=== PATIENT | male | born 1940 | race Caucasian/White ===

== ENCOUNTER → 2018-04-19 12:28 | Outpatient (CLI) | payer MEDICARE, SELFPAY ==
[2016-11-23 08:13] VITALS: BMI 24.7
--- NOTE | 2018-04-19 12:29 | CDU_ITS ---
Version 2 Reason For Study: CVA Rt. Velocities/BP Lt. Velocities/BP Prox CCA 32.2/5.5 cm/sec. Prox CCA 106/20.4 cm/sec. Mid CCA 33.4/5.11 cm/sec. Mid CCA 57.5/12.9 cm/sec. Dist CCA 168/23.6 cm/sec. Dist CCA 53.4/16.4 cm/sec. Prox ICA 83.8 cm/sec. Prox ICA 55/11.8 cm/sec. Mid ICA 56.9/8.21 cm/sec. Mid ICA 72.6/22.4 cm/sec. Dist ICA 66.8/11.1 cm/sec. Dist ICA 83.3/29.9 cm/sec. Rt. ICA/CCA = 2.51. Lt. ICA/CCA = 1.44. Rt. Vert. 62.1/18.2 cm/sec. Prox ECA 67.2/8.25 cm/sec. Lt. Vert. 46.4/13.4 cm/sec. Right Extracranial There is heterogeneous, irregular atherosclerotic plaque noted in the right common carotid artery. There is homogeneous, irregular atherosclerotic plaque noted in the right internal carotid artery. Antegrade flow is noted in the right vertebral artery. Left Extracranial There is heterogeneous, smooth atherosclerotic plaque noted in the left common carotid artery. There is heterogeneous, irregular atherosclerotic plaque noted in the left internal carotid artery. There is heterogeneous, irregular atherosclerotic plaque noted in the left external carotid artery. Antegrade flow is noted in the left vertebral artery. Procedure Carotid Duplex [id number]. The exam was diagnostic. Exam performed in department. Interpretation Summary Mild (<50%) stenosis right extracranial internal carotid. Mild (<50%) stenosis left extracranial internal carotid. Flow within the vertebral arteries is antegrade bilaterally. The right external carotid artery was not visualized, likely due to anatomical changes resulting from a prior surgical procedure in which the internal carotid artery was ligated and attached to the external carotid. All branches of the ECA were ligated.. Ordering Physician: Ajit Conde Referring Physician: Fredy Ribeiro Performed By: Hank Bingham RVT and Student
== END ==
PROVIDERS: Family Provider Family Medicine; PCP Family Medicine; Visit Provider Internal Medicine Cardiovascular Disease
DX: I65.23 Occlusion and stenosis of bilateral carotid arteries (principal)
CPT/HCPCS: 93880

== ENCOUNTER 2019-06-13 19:16 | Inpatient (IN) | payer MEDICARE, OTHER, SELFPAY ==
[2016-11-23 08:13] VITALS: BMI 24.7
[2019-06-13 19:18] VITALS: BP 132/72; PULSE 110; RESP 18; TEMP 36.8; O2SAT 88; BMI 24.4
--- NOTE | 2019-06-13 20:22 | EKG12_ITS ---
Test Reason : Blood Pressure : / mmHG Vent. Rate : 097 BPM Atrial Rate : 097 BPM P-R Int : 170 ms QRS Dur : 072 ms QT Int : 350 ms P-R-T Axes : 078 070 080 degrees QTc Int : 444 ms Normal sinus rhythm Septal infarct , age undetermined Abnormal ECG Confirmed by GERMÁN RODRIGUEZ, JAM ([id number]), fashion editor BRYAN FUENTES ([id number]) on 06/17/2019 9:36:33 AM Referred By: Confirmed By:JAM DUNLAP MD
--- NOTE | 2019-06-13 20:25 | RAD_ITS ---
STUDY: X-RAY CHEST REASON FOR EXAM: Male, 78 years old. Short of breath TECHNIQUE: AP portable COMPARISON: November 23, 2016 FINDINGS: Chronic interstitial thickening is noted most pronounced the mid and lower lung zones. No focal lobar infiltration is observed. There is no demonstrated pleural abnormality. Normal size heart. Normal mediastinum and freddie. Normal visualized pulmonary arteries. Mildly calcified aortic arch and descending thoracic aorta. Normal visualized thoracic spine. Normal visualized ribs, clavicles, and shoulders. There is no demonstrated abnormality of the visualized soft tissue structures of the upper abdomen. RAD/Chest 1 View (Portable) IMPRESSION: Chronic interstitial changes Electronically Signed: Mark Anthony Marcial MD at 21:02 EDT , Service support ,
[2019-06-13 20:31] LABS: Absolute Lymphocyte Count 1.24 X10^3/uL (0.83-4.51); Absolute Neutrophil Count 7.2 X10^3/uL (2.0-7.7); Basophil# 0.02 X10^3/uL; Basophil% 0.2 % (0-1); Hematocrit 43.9 % (40-54); Hemoglobin 13.8 g/dL (13.0-16.5); Lymphocyte # 1.24 X10^3/ul (4.0); Lymphocyte % 12.5 % (19-41); Mean Corp Hgb Conc 31.4 g/dL (32-36); Mean Corpuscular Hgb 29.2 pg (27.0-32.0); Mean Corpuscular Volume 92.8 fL (80-94); Mean Platelet Vol. 10.2 fl (6.2-12.0); Monocyte# 1.31 X10^3/uL; Monocyte% 13.2 % (0-10); NRBC Flagged by Analyzer 0 % (0-5); Neutrophil # 7.15 X10^3/uL (2.7-7.7); Neutrophil % 71.8 % (47-70); Platelet Count 165 K/mm3 (150-450); RBC Distribution Width CV 13.3 % (11.6-14.6); RBC Distribution Width SD 45.3 fl (35.1-43.9); Red Blood Count 4.73 M/mm3 (4.6-6.2)
[2019-06-13 20:32] VITALS: BP 140/79; PULSE 98; RESP 18; TEMP 37.1; O2SAT 94; O2SAT 95
[2019-06-13 20:41] LABS: Lactic Acid 1.6 mmol/L (0.4-2.0)
[2019-06-13 20:42] LABS: Anion Gap 9 (5-15); BUN 20 mg/dL (7-18); BUN/Creat Ratio 14.4 RATIO (10-20); Calcium,Total 9.1 mg/dL (8.5-10.1); Chloride 104 mmol/L (98-107); Creatinine, Serum 1.39 mg/dL (0.70-1.30); EST Glomerular Filtration Rate 52 mL/min (>60); Est Glom Filt Rate - Afr Amer 63 mL/min (>60); Estimated Creatinine Clearance 48.07 ml/min; Glucose 92 mg/dL (74-106); Potassium 3.5 mmol/L (3.5-5.1); Sodium Level 140 mmol/L (136-145)
[2019-06-13 21:56] LABS: Bacteria 0 SEEN /hpf (None Seen); Red Blood Cells-Urine 0 SEEN /hpf (0-5)
[2019-06-13 21:57] LABS: Color, Urine Yellow (Yellow); Glucose, Dipstick Normal (Normal); Ketone-Dipstick 15 mg/dl (Negative); Leukocyte Esterase-Dipstick 25 /ul (Negative); Nitrite-Dipstick Negative (Negative); Occult Blood-Urine Negative /ul (Negative); Protein-Dipstick 30 mg/dl (Negative); Urine Bilirubin Dipstick 1 mg/dL (Negative); Urine Clarity Sl. Cloudy (Clear); Urine Urobilinogen 4 mg/dl (Normal)
[2019-06-13 22:03] LABS: Squamous Epithelial Cells - UA 0-5 SEEN /hpf (0-5); White Blood Cells 0-5 SEEN /hpf (0-5)
[2019-06-13 22:04] LABS: Mucous, Urine 1+ /hpf (<or=2+)
[2019-06-13 22:11] VITALS: BP 152/77; PULSE 95; RESP 26; O2SAT 94
--- NOTE | 2019-06-13 22:49 | ED.DCSUM_ITS ---
- ER Visit Summary Date of Service: 06/13/19 Chief Complaint: Cough, shortness of breath History of Present Illness: The patient is a 78 M presenting with cough, shortness of breath. This has been ongoing for the past 2 days and progressively worsening. He has had fatigue and decreased appetite. He had t emperature up to 101 at home. He has cough productive of yellow sputum. He denies chest pain. He has history of CVA, CAD, diabetes, hypertension, hypercholesterolemia. No PE/DVT risk factors. He is not a smoker. Physical Examination: Vitals are stable. Patient is afebrile. Respiratory rate 26. Pulse ox 94% on 3 L. Alert no acute distress. HEENT exam is unremarkable. Neck is supple. Lungs are diminished bilaterally. Rhonchi bilaterally Heart is regular rate and rhythm. Abdomen is soft nontender nondistended. Extremities are unremarkable. Skin is warm and dry. No focal neurologic deficit. Remainder of exam is unremarkable. Emergency Department Course and Treatment: EKG is sinus rate of 97 with no acute ischemic changes. Chest x-ray shows chronic changes. CBC, chemistries unremarkable other than BUN 20, creatinine 1.39. Urinalysis unremarkable. Troponin is negative. Lactic acid is normal. Influenza negative. Patient is hypoxic with pulse ox of 88% on room air at rest. He is not able to ambulate as he is in a wheelchair at baseline. He does not wear home O2. He was given DuoNeb aerosol. He was given Rocephin, Zithromax IV. Will discuss with the hospitalist for admission. Disposition: Admission Impression: Bronchitis, hypoxia This note was generated with [employer] dictation software. It may contain incorrect words, spelling, and punctuation that were not noted in review of the chart prior to signing ED Disposition - Plan for ED Patient: Referrals: Fredy Ribeiro MD [Primary Care Provider] -
--- NOTE | 2019-06-13 22:53 | PCM.HP.STD ---
Problem List (1) Acute bronchitis Status: Acute (2) Valvular heart disease Status: Chronic (3) Presence of stent in coronary artery Status: Chronic Comment: PTCA/LARISSA of prox and mid LAD 11/22/16 (4) Presence of coronary angioplasty implant and graft Status: Chronic Comment: PTCA/LARISSA of prox and mid LAD 11/22/16 (5) Atherosclerotic heart disease of [place] coronary artery without angina pectoris Status: Chronic Qualifiers: [place] vs. transplanted heart: [place] heart Qualified Code(s): I25.10 - Atherosclerotic heart disease of [place] coronary artery without angina pectoris Comment: PTCA/LARISSA of prox and mid LAD 11/22/16 (6) Atrial fibrillation with RVR Status: Chronic (7) Acute diastolic (congestive) heart failure Status: Chronic Comment: due to AF with RVR + NSTEMI (8) History of bilateral carotid endarterectomy Status: Chronic (9) HLD (hyperlipidemia) Status: Chronic Qualifiers: Hyperlipidemia type: mixed hyperlipidemia Qualified Code(s): E78.2 - Mixed hyperlipidemia (10) HTN (hypertension) Status: Chronic Qualifiers: Hypertension type: essential hypertension Qualified Code(s): I10 - Essential (primary) hypertension (11) Sepsis Status: Acute History of Present Illness Date of Admission: 06/13/19 Chief Complaint: productive cough The patient is a 78 year old M with a significant history of atrial fibrillation; diastolic heart failure home oxygen PRN use; CAD; CVA x2 who presented to the emergency department with a productive cough. Associated with his symptoms is a fever of 100 (101?) Fahrenheit at home; malaise; anorexia; wheezes; weakness and headache. He denies shortness of breath. At emergency department on room air he was 88%. Chest x-ray did not show any acute disease. Influenza swab was negative. Of note family report that some years ago patient was diagnosed with beginning emphysema. Past Medical History Past Medical History (Chronic Problems): Chronic Problems (Last Reviewed 06/13/19 @ 23:43 by Bari Maradiaga MD) Valvular heart disease (Chronic) Presence of stent in coronary artery (Chronic ~11/22/16) PTCA/LARISSA of prox and mid LAD 11/22/16 Presence of coronary angioplasty implant and graft (Chronic ~11/22/16) PTCA/LARISSA of prox and mid LAD 11/22/16 Atherosclerotic heart disease of [place] coronary artery without angina pectoris (Chronic) PTCA/LARISSA of prox and mid LAD 11/22/16 Atrial fibrillation with RVR (Chronic) Acute diastolic (congestive) heart failure (Chronic) due to AF with RVR + NSTEMI History of bilateral carotid endarterectomy (Chronic) HLD (hyperlipidemia) (Chronic) HTN (hypertension) (Chronic) Medical History: Medical History (Last Reviewed 06/14/19 @ 05:34 by Bari Maradiaga MD) Acute non-ST elevation myocardial infarction (NSTEMI) (Inactive) I21.4 Occlusion and stenosis of bilateral carotid arteries (Inactive) I65.23 Atherosclerotic heart disease of [place] coronary artery without angina pectoris (Chronic) I25.10 PTCA/LARISSA of prox and mid LAD 11/22/16 Atrial fibrillation with RVR (Chronic) I48.91 Acute diastolic (congestive) heart failure (Chronic) I50.31 due to AF with RVR + NSTEMI HLD (hyperlipidemia) (Chronic) E78.5 HTN (hypertension) (Chronic) I10 Acute respiratory failure with hypoxemia J96.01 Anemia D64.9 Anxiety and depression F41.8 BPH (benign prostatic hyperplasia) N40.0 Bilateral pleural effusion J90 CVA (cerebral vascular accident) I63.9 Chronic renal failure, stage 2 (mild) N18.2 Left hemiplegia G81.94 Long-term use of high-risk medication Z79.899 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 Peripheral vascular disease I73.9 Presence of IVC filter Z95.828 Subdural hematoma I62.00 Type 2 diabetes mellitus E11.9 MAXIME (acute kidney injury) (Inactive) N17.9 Acute blood loss anemia (Inactive) D62 Acute respiratory failure (Inactive) J96.00 Acute respiratory failure with hypoxemia (Inactive) J96.01 Anemia (Inactive) D64.9 Anemia due to acute blood loss (Inactive) D62 Anxiety (Inactive) F41.9 BPH (benign prostatic hypertrophy) (Inactive) N40.0 Bilateral pleural effusion (Inactive) J90 CAD (coronary artery disease) (Inactive) I25.10 CHF exacerbation (Inactive) I50.9 Carotid artery stenosis (Inactive) I65.29 Chronic renal failure, stage 2 (mild) (Inactive) N18.2 Constipation (Inactive) K59.00 Diabetes mellitus (Inactive) E11.9 Diabetes mellitus type 2 in nonobese (Inactive) E11.9 Diastolic dysfunction (Inactive) I51.9 Fall (Inactive) W19.XXXA Fracture of hip, left, closed (Inactive) S72.002A Heart failure with preserved ejection fraction (Inactive) I50.30 Hematuria (Inactive) R31.9 History of PTCA 1 (Inactive) Z98.61 LAD 11/22/16 Hypokalemia (Inactive) E87.6 Left hemiplegia (Inactive) G81.94 senior living use of drug Z79.899 Mixed anxiety and depressive disorder (Inactive) NSTEMI (non-ST elevated myocardial infarction) (Inactive) I21.4 Osteoarthritis of left hip (Inactive) M16.12 PAOD (peripheral arterial occlusive disease) (Inactive) I77.9 PVD (peripheral vascular disease) (Inactive) I73.9 Periprosthetic fracture around internal prosthetic left hip joint (Inactive) M97.02XA Presence of IVC filter (Inactive) Z95.828 Stroke (Inactive) I63.9 Subdural hematoma (Inactive) I62.00 Tinea unguium (Inactive) B35.1 Toe pain, left (Inactive) M79.675 Toe pain, right (Inactive) M79.674 Uncontrolled pain (Inactive) R52 due to recent hip fracture Urine retention (Inactive) R33.9 Allergies procaine [From Novocain] Allergy (Unknown, Verified 06/13/19 19:20) Unknown fluoxetine [From Prozac] Adverse Reaction (Verified 06/13/19 19:20) Other HALLUCINATIONS Home Medications: Ambulatory Orders Medication Instructions Recorded Tamsulosin HCl [Flomax] 0.4 mg PO BID 11/15/16 Furosemide [Lasix] 40 mg PO DAILY #30 tab 12/21/16 Potassium Chloride [K-Dur] 20 meq PO DAILYCM #30 tab 12/21/16 Amlodipine [Norvasc] 5 mg PO DAILY 05/04/17 Glimepiride [Amaryl] 2 mg PO DAILY 05/05/17 aspirin 81 mg tablet,delayed 81 mg PO QDAY 09/01/17 release clopidogrel 75 mg tablet 75 mg PO QDAY 09/01/17 rosuvastatin 40 mg tablet 40 mg PO QHS #90 tab 10/09/17 metoprolol tartrate 50 mg tablet 50 mg PO BID tab 04/10/18 ALPRAZolam [Xanax] 0.5 mg PO BID PRN PRN 06/13/19 Sitagliptin Phosphate [Januvia] 100 mg PO DAILY 06/13/19 Venlafaxine HCl [Venlafaxine HCl 150 mg PO DAILY 06/13/19 ER] Surgical History: Surgical History (Last Reviewed 06/14/19 @ 05:34 by Bari Maradiaga MD) Presence of stent in coronary artery (Chronic) Onset Date: ~11/22/16 Z95.5 PTCA/LARISSA of prox and mid LAD 11/22/16 Presence of coronary angioplasty implant and graft (Chronic) Onset Date: ~11/22/16 Z95.5 PTCA/LARISSA of prox and mid LAD 11/22/16 History of bilateral carotid endarterectomy (Chronic) Z98.890 History of herniorrhaphy Z98.890, Z87.19 History of total left hip arthroplasty Z96.642 Surgical History: herniorrhaphy, total hip arthroplasty - Left hip, TURP, - - Bilateral carotid endarterectomies, IVC filter insertion Psychiatric History: Anxiety, Depression Lives: With Family Smoking Status: Former smoker - *Family History Maternal Family History: Family History (Last Reviewed 06/14/19 @ 05:34 by Bari Maradiaga MD) Mother Diabetes Father Kidney disease History Items: Diabetes, Heart Disease Paternal Family History: Family History (Last Reviewed 06/14/19 @ 05:34 by Bari Maradiaga MD) Mother Diabetes Father Kidney disease History Items: Renal Disease Review of Systems Constitutional: Reports: Anorexia, Chills, Fever, Malaise, Weakness. Denies: Weight Change HEENT: Reports: Head Aches. Denies: Sinus Congestion, Sinus Drainage Cardiovascular: Denies: Chest Pain, Palpitations Respiratory: Reports: Cough, Sputum production, Wheezing Gastrointestinal: Denies: Abdominal Pain, Nausea, Vomiting Genitourinary: Denies: Dysuria Musculoskeletal: Denies: Joint Pain, Joint Tenderness Skin: Denies: Rash, Wounds Neurological: Reports: Focal weakness - left side; chronic. Denies: Numbness, Tingling Psychiatric: Reports: Anxiety, Depression. Denies: Homicidal Ideations, Suicidal Ideations Hematologic/ Lymphatic: Denies: Easy Bruising, Easy Bleeding VTE Information - Inpt Only VTE Present on Admission: No VTE Mechan Device Prophylaxis: None VTE Pharm Prophylaxis ordered?: Yes Patient Problems: Active and Suspected Problems (Last Reviewed 06/13/19 @ 23:43 by Bari Maradiaga MD) Acute bronchitis (Acute) Sepsis (Acute) - Physical Exam Vitals/I&O's: Vital Signs Temp Pulse Resp BP Pulse Ox 98.8 F 95 26 H 152/77 H 94 06/13/19 20:32 06/13/19 22:11 06/13/19 22:11 06/13/19 22:11 06/13/19 22:11 Oxygen Flow Rate (L/min) 2 Oxygen Delivery Method Nasal Cannula Weight: 81.647 kg Body Mass Index (BMI) 24.4 Finger Stick Blood Glucose 127 Intake and Output for Last 24 Hours 06/11/19 06/12/19 06/13/19 23:59 23:59 23:59 Intake Total 500 / 500 Balance 500 / 500 General: Alert, Oriented x3, Cooperative HEENT: Atraumatic, PERRLA, EOMI, Normocephalic Neck: Supple, Trachea Midline Lungs: No rhonchi, No rales, Tachypneic, Wheezes Cardiovascular: Regular rate, Normal S1, Normal S2, No murmurs, Tachycardic Abdomen: Bowel Sounds Present, Soft, Non Tender Extremities: No edema, Capillary Refill Less than 3 Seconds Skin: No rashes, No breakdown Musculoskeletal: No Tenderness to Palpation of Joints or Extremities Neurological: Cranial nerves II-XII grossly intact Psych/Mental Status: Normal Affect, Appropriate Microbiology Past 72 Hours 06/13/19 21:03 Mucosa - Nose Influenza Types A,B Direct FA (INEZ) - Final Laboratory Results 06/13/19 20:00: WBC 10.0, RBC 4.73, Hgb 13.8, Hct 43.9, MCV 92.8, MCH 29.2, MCHC 31.4 L, RDW Std Deviation 45.3 H, RDW Coeff of Jeff 13.3, Plt Count 165, MPV 10.2, Immature Gran % (Auto) 0.300, Neut % (Auto) 71.8 H, Lymph % (Auto) 12.5 L, [place] % (Auto) 13.2 H, Eos % (Auto) 2.0, Baso % (Auto) 0.2, Absolute Neuts (auto) 7.2, Absolute Lymphs (auto) 1.24, Nucleated RBC % 0 06/13/19 20:00: Sodium 140, Potassium 3.5, Chloride 104, Carbon Dioxide 27.0, Anion Gap 9, BUN 20 H, Creatinine 1.39 H, Estim Creat Clear Calc 48.07, Est GFR (MDRD) Af Amer 63, Est GFR (MDRD) Non-Af 52 L, BUN/Creatinine Ratio 14.4, Glucose 92, Calcium 9.1, Troponin I < 0.015 06/13/19 20:00: Lactic Acid 1.6 06/13/19 21:45: Urine Color Yellow, Urine Clarity Sl. Cloudy, Urine pH 5.0, Ur Specific [place] 1.020, Urine Protein 30 H, Urine Glucose (UA) Normal, Urine Ketones 15 H, Urine Occult Blood Negative, Urine Nitrite Negative, Urine Bilirubin 1 H, Urine Urobilinogen 4 H, Ur Leukocyte Esterase 25 H, Urine RBC 0 SEEN, Urine WBC 0-5 SEEN, Ur Squamous Epith Cells 0-5 SEEN, Urine Bacteria 0 SEEN, Urine Mucus 1+ Assessment/Plan All Active Problems (Last Reviewed 06/13/19 @ 23:43 by Bari Maradiaga MD) Acute bronchitis (Acute) Sepsis (Acute) The patient is a 78 year old M with a significant history of atrial fibrillation; diastolic heart failure home oxygen PRN use; CAD; CVA x2 with residual left-sided weakness who presented to the emergency department with a productive cough; fever; malaise; anorexia; wheezes; weakness; headache: hypoxia; tachycardia and tachypnea but with unremarkable chest x-ray consistent with sepsis secondary to acute bronchitis. Acute bronchitis. Patient uses home oxygen as needed. And on presentation his oxygen saturation was 88% on room air. Received breathing treatment in the emergency department. Will schedule patient on breathing treatment [id number]. Albuterol as needed. Received ceftriaxone and azithromycin in the emergency department. Continue same antibiotics. Blood cultures were ordered at the emergency department; follow. Hold home Lasix since he appears dry. Start normal saline IV hydration and repeat chest x-ray next day. Different diagnoses include acute viral illness. Rapid flu was unremarkable. We will check a comprehensive respiratory pathogen panel. Incentives parameter and chest physiotherapy ordered. CAD status post stent Aspirin and Plavix continued Crestor continued Diastolic heart failure Hold home Lasix since patient appears dry. Give normal saline IV hydration and repeat chest x-ray in a.m. Home potassium continued. Diabetes mellitus On presentation his blood glucose was on the low side. Hold home Januvia and Amaryl. Q. ACH S. Regular diet. Depression/anxiety disorder Xanax as needed continued. Venlafaxine continued Hypertension On presentation his blood pressure was stable in regard to his age. Home amlodipine continued. Trend blood pressure and adjust blood pressure medication BPH Flomax continued. DVT Prophylaxis Subcutaneous Lovenox Code Visit Inpatient E&M: 20057 Init Hosp L3
[2019-06-13 23:00] VITALS: PULSE 99; RESP 18
[2019-06-13] MEDS: Ipratropium/Albuterol Sulfate 3 ML AMPUL.NEB INHALATION (23:01)
[2019-06-13] MEDS: Ceftriaxone 1 GM/50 ML BAG IV (23:24)
[2019-06-13 23:25] VITALS: BP 138/78; PULSE 110; RESP 28; TEMP 37.9; O2SAT 92
[2019-06-14] VITALS (25 sets, daily range): BP systolic 108–152; BP diastolic 58–77; PULSE 79–105; RESP 20–28; TEMP 36.8–38.3; O2SAT 86–99; BMI 24.7
[2019-06-14] MEDS: 0.9% Normal Saline 1,000 ML 150 ML IV (00:24)
[2019-06-14] MEDS: guaiFENesin 1,200 MG Tablet 1200 MG PO ×3 (00:44→21:54)
[2019-06-14] MEDS: Ipratropium/Albuterol Sulfate 3 ML AMPUL.NEB INHALATION ×4 (02:29→19:33)
[2019-06-14] MEDS: Acetaminophen 325 MG Tablet 650 MG PO (02:55)
[2019-06-14 06:25] LABS: Bedside Glucose 109 mg/dL (70-110)
[2019-06-14 06:42] LABS: Absolute Neutrophil Count 6.2 X10^3/uL (2.0-7.7); Basophil# 0.02 X10^3/uL; Basophil% 0.2 % (0-1); Eosinophil# 0.06 X10^3/uL; Eosinophils% 0.7 % (0-5); Hematocrit 34.5 % (40-54); Hemoglobin 11.1 g/dL (13.0-16.5); Lymphocyte % 11.9 % (19-41); Mean Corp Hgb Conc 32.2 g/dL (32-36); Mean Corpuscular Hgb 29.5 pg (27.0-32.0); Mean Corpuscular Volume 91.8 fL (80-94); Mean Platelet Vol. 10.2 fl (6.2-12.0); Monocyte# 1.12 X10^3/uL; Monocyte% 13.3 % (0-10); NRBC Flagged by Analyzer 0 % (0-5); Neutrophil # 6.17 X10^3/uL (2.7-7.7); Neutrophil % 73.3 % (47-70); Platelet Count 144 K/mm3 (150-450); RBC Distribution Width CV 13.4 % (11.6-14.6); RBC Distribution Width SD 45.4 fl (35.1-43.9); Red Blood Count 3.76 M/mm3 (4.6-6.2); White Blood Count 8.4 K/mm3 (4.4-11.0)
[2019-06-14 07:07] LABS: Anion Gap 7 (5-15); BUN 17 mg/dL (7-18); Calcium,Total 8.1 mg/dL (8.5-10.1); Chloride 108 mmol/L (98-107); Creatinine, Serum 1.06 mg/dL (0.70-1.30); EST Glomerular Filtration Rate 72 mL/min (>60); Est Glom Filt Rate - Afr Amer 87 mL/min (>60); Estimated Creatinine Clearance 63.04 ml/min; Glucose 116 mg/dL (74-106); Potassium 3.6 mmol/L (3.5-5.1); Sodium Level 140 mmol/L (136-145)
--- NOTE | 2019-06-14 09:11 | PN_ITS ---
Patient Problems: Active and Suspected Problems (Last Updated 06/14/19 @ 08:26 by Marilia Riddle MD) Community acquired pneumonia (Acute) Sepsis (Acute) Subjective: Chief complaint: Follow-up after admission for sepsis and probable community- acquired pneumonia. Patient seen and examined. No acute events overnight. Today, he feels better, less short of breath but still complains of cough. He has been having spikes of fever. Denied chest pain or palpitation. Maximum temperature overnight was 101 Fahrenheit, blood pressure noted are stable, pulse ox is 92% on 2 L. - Physical Exam Vitals/I&O's: Vital Signs Temp Pulse Resp BP Pulse Ox 100.5 F H 98 20 H 136/70 H 92 06/14/19 07:13 06/14/19 07:19 06/14/19 07:19 06/14/19 07:13 06/14/19 07:19 Oxygen Flow Rate (L/min) 2 Oxygen Delivery Method Nasal Cannula Weight: 182 lb 1.629 oz Body Mass Index (BMI) 24.7 Finger Stick Blood Glucose 127 Intake and Output for Last 24 Hours 06/12/19 06/13/19 06/14/19 23:59 23:59 23:59 Intake Total 550 / 550 1405.0 / 1405.0 Output Total 175 / 175 Balance 550 / 550 1230.0 / 1230.0 General: Alert, Oriented x3, Cooperative, No apparent distress, - HEENT: Atraumatic, PERRLA, EOMI, Normocephalic Oral: Moist Mucosa, No Gingival or Mucosal Lesions/ Ulcerations Neck: Supple, No JVD, Negative Carotid Bruits, Trachea Midline, Thyroid Normal Size and Texture Lungs: No rales, Diminished, Rhonchi, Wheezes, - - Decreased breath sounds bilaterally more at the bases, rhonchi, occasional wheezes. Cardiovascular: Regular rate, Regular Rhythm, Normal S1, Normal S2, PMI Normal Abdomen: Bowel Sounds Present, Soft, Non Tender, Non-Distended, No Hepato- splenomegaly Extremities: No clubbing, No cyanosis, No edema Skin: No rashes, No breakdown Lymphatic: No Cervical, Supraclavicular, or Inguinal Adenopathy Neurological: Cranial nerves II-XII grossly intact, - - Left-sided hemiparesis. Psych/Mental Status: Normal Affect, Appropriate, Alert and oriented to time, place, person, mood and affect Microbiology Past 72 Hours 06/13/19 21:03 Mucosa - Nose Influenza Types A,B Direct FA (INEZ) - Final Laboratory Results 06/13/19 20:00: WBC 10.0, RBC 4.73, Hgb 13.8, Hct 43.9, MCV 92.8, MCH 29.2, MCHC 31.4 L, RDW Std Deviation 45.3 H, RDW Coeff of Jeff 13.3, Plt Count 165, MPV 10.2, Immature Gran % (Auto) 0.300, Neut % (Auto) 71.8 H, Lymph % (Auto) 12.5 L, Spencer % (Auto) 13.2 H, Eos % (Auto) 2.0, Baso % (Auto) 0.2, Absolute Neuts (auto) 7.2, Absolute Lymphs (auto) 1.24, Nucleated RBC % 0 06/13/19 20:00: Sodium 140, Potassium 3.5, Chloride 104, Carbon Dioxide 27.0, Anion Gap 9, BUN 20 H, Creatinine 1.39 H, Estim Creat Clear Calc 48.07, Est GFR (MDRD) Af Amer 63, Est GFR (MDRD) Non-Af 52 L, BUN/Creatinine Ratio 14.4, Glucose 92, Calcium 9.1, Troponin I < 0.015 06/13/19 20:00: Lactic Acid 1.6 06/13/19 21:45: Urine Color Yellow, Urine Clarity Sl. Cloudy, Urine pH 5.0, Ur Specific [place] 1.020, Urine Protein 30 H, Urine Glucose (UA) Normal, Urine Ketones 15 H, Urine Occult Blood Negative, Urine Nitrite Negative, Urine Bilirubin 1 H, Urine Urobilinogen 4 H, Ur Leukocyte Esterase 25 H, Urine RBC 0 SEEN, Urine WBC 0-5 SEEN, Ur Squamous Epith Cells 0-5 SEEN, Urine Bacteria 0 SEEN, Urine Mucus 1+ 06/14/19 06:05: WBC 8.4, RBC 3.76 L, Hgb 11.1 L, Hct 34.5 L, MCV 91.8, MCH 29.5, MCHC 32.2, RDW Std Deviation 45.4 H, RDW Coeff of Jeff 13.4, Plt Count 144 L, MPV 10.2, Immature Gran % (Auto) 0.600, Neut % (Auto) 73.3 H, Lymph % (Auto) 11.9 L, Spencer % (Auto) 13.3 H, Eos % (Auto) 0.7, Baso % (Auto) 0.2, Absolute Neuts (auto) 6.2, Absolute Lymphs (auto) 1.00, Nucleated RBC % 0 06/14/19 06:05: Sodium 140, Potassium 3.6, Chloride 108 H, Carbon Dioxide 25.0, Anion Gap 7, BUN 17, Creatinine 1.06, Estim Creat Clear Calc 63.04, Est GFR (MDRD) Af Amer 87, Est GFR (MDRD) Non-Af 72, BUN/Creatinine Ratio 16.0, Glucose 116 H, Calcium 8.1 L 06/14/19 06:19: POC Glucose 109 Clinical Impression(s) from Imaging Studies Chest X-Ray 06/14/19 12:00 IMPRESSION: Right lower lung infiltrate. Electronically Signed: Randell Fernando MD at 8:35 EDT , Service support , Current Medications Acetaminophen (Tylenol) 650 mg PO Q6H PRN PRN PRN Reason: Pain Score 1-3/Temp > 100.7 F Last Admin: 06/14/19 02:55 Dose: 650 mg Documented by: Albuterol Sulfate (Ventolin Aerosols) 2.5 mg INHALATION Q2H PRN PRN PRN Reason: Shortness of Breath/Wheezing Albuterol/Ipratropium (Duoneb) 3 ml INHALATION Q4HWA.RT [facility] Last Admin: 06/14/19 06:51 Dose: 3 ml Documented by: Alprazolam (Xanax) 0.5 mg PO BID PRN PRN PRN Reason: ANXIETY Amlodipine Besylate (Norvasc) 5 mg PO DAILY [facility] Aspirin (Ecotrin) 81 mg PO DAILYCM [facility] Atorvastatin Calcium (Lipitor) 80 mg PO QHS [facility] Clopidogrel Bisulfate (Plavix) 75 mg PO DAILY [facility] Dextrose (D50w Syringe) 0 gm IV X1 PRN; Protocol PRN Reason: Hypoglycemia Enoxaparin Sodium (Lovenox) 40 mg SC DAILY@1000 [facility] Glucagon () 1 mg IM .X1 PRN PRN Reason: Hypoglycemia Guaifenesin (Mucinex) 1,200 mg PO BID [facility] Last Admin: 06/14/19 00:44 Dose: 1,200 mg Documented by: Ceftriaxone Sodium (Rocephin) 1 gm in 50 mls @ 100 mls/hr IV Q24@2200 [facility] Azithromycin 500 mg/ Dextrose 255 mls @ 250 mls/hr IV Q24@2200 [facility] Sodium Chloride () 250 mls @ 15 mls/hr IV .[id number] PRN PRN Reason: Saline Flush Metoprolol Tartrate (Lopressor (Beta Mark)) 50 mg PO BID [facility] Ondansetron HCl (Zofran) 4 mg IV Q8H PRN PRN PRN Reason: NAUSEA/VOMITING Potassium Chloride (K-Dur) 20 meq PO DAILYCM [facility] Sodium Chloride () 10 - 40 ml IV UD PRN PRN Reason: SALINE FLUSH Tamsulosin HCl (Flomax) 0.4 mg PO BID [facility] Venlafaxine HCl (Effexor Xr) 150 mg PO DAILY [facility] Medical Necessity - Tobacco Use Smoking Status: Former smoker Assessment/Plan All Active Problems (Last Updated 06/14/19 @ 08:26 by Marilia Riddle MD) Community acquired pneumonia (Acute) Sepsis (Acute) This is a 78 years old male patient presented to the emergency room because of shortness of breath and cough and he was found to have right lower lobe infiltrate consistent with community-acquired pneumonia with sepsis. #1 right lower lobe community-acquired pneumonia/sepsis: He is on IV Rocephin and Zithromax. He has been having spikes of fever, no leukocytosis. Lactic acid was normal. Nasal swab for influenza A and B were negative. Blood cultures pending. Respiratory panel for viruses is pending. Plan: Sputum culture, continue same treatment, encourage incentive spirometer, PT OT evaluation and treatment.. #2 hypoxia: Secondary to above. He is on 2 L of oxygen, pulse ox is 92%. Patient has been on home oxygen before. He is a former smoker. Plan for bronchodilators, IV antibiotics as above, wean off oxygen as tolerated. #3 CAD status post stents: EKG without acute ischemic changes. Troponin is negative. Continue aspirin, Plavix, statins and metoprolol. #4 type 2 diabetes mellitus: Blood sugar stable, continue glimepiride and Januvia, Accu-Cheks, insulin sliding scale. #5 chronic diastolic CHF: Clinically stable, compensated. Continue Lasix and metoprolol. #6 hypertension: Blood pressure stable, continue Norvasc and metoprolol as well as Lasix. #7 history of stroke: With resultant left-sided body weakness, left upper extremity monoparesis. Continue aspirin, Plavix and statins. #8 hyperlipidemia: Continue statins. #9 benign prostatic hypertrophy: Continue Flomax. #10 DVT prophylaxis: Subcu Lovenox. This note was generated with [employer] dictation software. It may contain incorrect words, spelling, and punctuation that were not noted in checking the note before signing. Code Visit Inpatient E&M: 01777 Subs Hosp L2
[2019-06-14] MEDS: Tamsulosin HCl 0.4 MG Capsule PO ×2 (09:23→21:54)
[2019-06-14] MEDS: Metoprolol Tartrate 50 MG Tablet PO ×2 (09:23→21:54)
[2019-06-14] MEDS: Venlafaxine XR 150 MG Capsule PO (09:23)
[2019-06-14] MEDS: amLODIPine 5 MG Tablet PO (09:23)
[2019-06-14] MEDS: Clopidogrel Bisulfate 75 MG Tablet PO (09:23)
[2019-06-14] MEDS: Aspirin E.C. 81 MG Tablet PO (09:24)
[2019-06-14] MEDS: Enoxaparin 40 MG/0.4 ML Syringe SC (09:24)
[2019-06-14] MEDS: Glimepiride 2 MG Tablet PO (11:42)
[2019-06-14] MEDS: Furosemide 40 MG Tablet PO (11:42)
[2019-06-14] MEDS: LINAGLIPTIN 5 MG TABLET PO (11:42)
--- NOTE | 2019-06-14 11:47 | CASEMGMT ---
Healthcare POA form on file, which includes living will provision. Pt's Jihan Sanford is listed as pt's healthcare POA. [facility]
[2019-06-14 11:50] LABS: Bedside Glucose 154 mg/dL (70-110)
--- NOTE | 2019-06-14 12:00 | RAD_ITS ---
STUDY: X-RAY CHEST REASON FOR EXAM: Male, 78 years old. Cough. TECHNIQUE: Single AP portable view of the chest. COMPARISON: June 13, 2019. FINDINGS: There is interstitial accentuation. There is patchy right lower lung increased opacity. There is no demonstrated pleural abnormality. Normal size heart. Normal mediastinum and freddie. Normal visualized pulmonary arteries. There is atherosclerotic calcification of the aortic arch with tortuosity. Normal visualized thoracic spine. There are stable healed left rib fractures. There is no demonstrated abnormality of the visualized soft tissue structures of the upper abdomen. RAD/Chest 1 View (Portable) IMPRESSION: Right lower lung infiltrate. Electronically Signed: Randell Fernando MD at 8:35 EDT , Service support ,
--- NOTE | 2019-06-14 14:10 | CASEMGMT ---
Addendum entered by Benjy Vines 06/14/19 17:01: 1420: Pt states he has [facility] benefits and [facility] and [facility] medications. Reviewed [facility] transfer form with pt and he declines to transfer to [facility]. Form signed by pt, copy made and given to pt and form placed on pt's chart. Form faxed to [facility] along with updated clinical information. Original Note: RN CM NATURAL SCIENCE MANAGER CM to room to meet with patient for initial transition planning/care coordination assessment. RN CRYSTAL introduced self and role at [facility]. Pt voices understanding and consents to assessment at this time. Pt sitting up in recliner chair in room, in no distress at this time. Pt is A/O at this time and answers all questions appropriately. Care providers, pharmacy, and demographics verified at this time. PCP: Dr Fredy Ribeiro Preferred [facility]acy[facility] Insurance: [employer] Prescription Benefit: Yes Living Will/HPOA: Has both LW and HCPOA who is his , Jihan. LNOK: . 3 adult children. Living Arrangements: Lives with his in 2-story home. [employer]. Ramp entrance. States his and daughter assist him daily with ADL's and home mgmt tasks. States has someone with him 24 hrs/day. States his children and in-laws are all supportive and assist as needed. Transportation: Daughter, Anh, and Maikol VASQUEZ. DME: has the following DME: walk in tub, shower chair, hemiwalker, W/C, power W/C, hospital bed, rails/grab bars. O2 @ 2l/m, but is not sure where he gets it through. Pt states no need for further DME at this time. HHC/SNF: Hx of SNF after stroke and hip surgery. [facility]. Reviewed PT/OT notes. Per therapy, pt is not safe for home. Discussed therapies recommendations. Pt very directly and firmly refused SNF and stated, I am going home when I get out of here. Pt stated he has good family support. Discussed further options of HHC and OP therapy and pt refused both of them as well, stating, I am not interested in any of that stuff right now. Pt made aware, if in the future, he decides he is interested in/would benefit from futher therapy, to discuss options with his PCP. Pt voices understanding. Pt wishes to return home at discharge. CM to follow for any further discharge planning/needs. Pt voices no further concerns/needs at this time. Advised pt to ask for CM if any further questions/concerns/needs arise. Voices understanding. PLAN: Home with family support and discharge plans in place. Deniz MARRERO RN CM
[2019-06-14 16:46] LABS: Bedside Glucose 150 mg/dL (70-110)
[2019-06-14] MEDS: 0.9% Saline Lock 10 ML Syringe IV (21:54)
[2019-06-14] MEDS: Atorvastatin Calcium 80 MG Tablet PO (21:54)
[2019-06-14] MEDS: Ceftriaxone 1 GM/50 ML BAG IV (22:56)
[2019-06-14 23:10] LABS: Bedside Glucose 114 mg/dL (70-110)
[2019-06-15] VITALS (16 sets, daily range): BP systolic 106–137; BP diastolic 60–83; PULSE 73–106; RESP 16–32; TEMP 36.9–37.8; O2SAT 88–98
[2019-06-15 06:41] LABS: Bedside Glucose 97 mg/dL (70-110)
[2019-06-15] MEDS: Ipratropium/Albuterol Sulfate 3 ML AMPUL.NEB INHALATION ×4 (06:58→19:59)
--- NOTE | 2019-06-15 08:26 | PCM.PROGNOTE ---
Patient Problems: Active and Suspected Problems (Last Updated 06/14/19 @ 08:26 by Marilia Riddle MD) Community acquired pneumonia (Acute) Sepsis (Acute) Subjective: Chief complaint: Follow-up after admission for sepsis and probable community-acquired pneumonia. Patient seen and examined. No acute events overnight. Today, is feeling better, shortness of breath improved. Still complaining of cough with minimal sputum. He has been afebrile. Blood pressure and heart rate are stable, pulse ox is 93% on 3 L. - Physical Exam Vitals/I&O's: Vital Signs Temp Pulse Resp BP Pulse Ox 98.4 F 81 18 137/80 H 90 06/15/19 06:35 06/15/19 06:59 06/15/19 06:59 06/15/19 06:35 06/15/19 06:59 Oxygen Flow Rate (L/min) 3 Oxygen Delivery Method Nasal Cannula Weight: 182 lb 1.629 oz Body Mass Index (BMI) 24.7 Finger Stick Blood Glucose 127 Intake and Output for Last 24 Hours 06/13/19 06/14/19 06/15/19 23:59 23:59 23:59 Intake Total 550 / 550 2510.0 / 2510.0 Output Total 675 / 675 200 / 200 Balance 550 / 550 1835.0 / 1835.0 -200 / -200 General: Alert, Oriented x3, Cooperative, No apparent distress HEENT: Atraumatic, PERRLA, EOMI, Normocephalic Oral: Moist Mucosa, No Gingival or Mucosal Lesions/ Ulcerations Neck: Supple, No JVD, Negative Carotid Bruits, Trachea Midline, Thyroid Normal Size and Texture Lungs: Diminished, Rales, Rhonchi, - - Decreased breath sounds bilateral, more at the bases, faint rales on the right base, rhonchi. Cardiovascular: Regular rate, Regular Rhythm, Normal S1, Normal S2, PMI Normal Abdomen: Bowel Sounds Present, Soft, Non Tender, Non-Distended, No Hepato-splenomegaly Extremities: No clubbing, No cyanosis, No edema Skin: No rashes, No breakdown Lymphatic: No Cervical, Supraclavicular, or Inguinal Adenopathy Neurological: Cranial nerves II-XII grossly intact, - - Left-sided hemiparesis. Psych/Mental Status: Normal Affect, Appropriate, Alert and oriented to time, place, person, mood and affect Microbiology Past 72 Hours 06/14/19 03:00 Mucosa - Nasopharyngeal Respiratory Panel (PCR) - Final 06/13/19 21:03 Mucosa - Nose Influenza Types A,B Direct FA (INEZ) - Final Laboratory Results 06/14/19 11:31: POC Glucose 154 H 06/14/19 16:36: POC Glucose 150 H 06/14/19 22:52: POC Glucose 114 H 06/15/19 06:32: POC Glucose 97 Current Medications Acetaminophen (Tylenol) 650 mg PO Q6H PRN PRN PRN Reason: Pain Score 1-3/Temp > 100.7 F Last Admin: 06/14/19 02:55 Dose: 650 mg Documented by: Albuterol Sulfate (Ventolin Aerosols) 2.5 mg INHALATION Q2H PRN PRN PRN Reason: Shortness of Breath/Wheezing Albuterol/Ipratropium (Duoneb) 3 ml INHALATION Q4HWA.RT [facility] Last Admin: 06/15/19 06:58 Dose: 3 ml Documented by: Alprazolam (Xanax) 0.5 mg PO BID PRN PRN PRN Reason: ANXIETY Amlodipine Besylate (Norvasc) 5 mg PO DAILY [facility] Last Admin: 06/14/19 09:23 Dose: 5 mg Documented by: [facility] Last Admin: 06/14/19 09:24 Dose: 81 mg Documented by: Atorvastatin Calcium (Lipitor) 80 mg PO QHS [facility] Last Admin: 06/14/19 21:54 Dose: 80 mg Documented by: Clopidogrel Bisulfate (Plavix) 75 mg PO DAILY [facility] Last Admin: 06/14/19 09:23 Dose: 75 mg Documented by: Dextrose (D50w Syringe) 0 gm IV X1 PRN; Protocol PRN Reason: Hypoglycemia Enoxaparin Sodium (Lovenox) 40 mg SC DAILY@1000 [facility] Last Admin: 06/14/19 09:24 Dose: 40 mg Documented by: Furosemide (Lasix) 40 mg PO DAILY [facility] Last Admin: 06/14/19 11:42 Dose: 40 mg Documented by: Glimepiride (Amaryl) 2 mg PO DAILYCM [facility] Last Admin: 06/14/19 11:42 Dose: 2 mg Documented by: Glucagon () 1 mg IM .X1 PRN PRN Reason: Hypoglycemia Guaifenesin (Mucinex) 1,200 mg PO BID [facility] Last Admin: 06/14/19 21:54 Dose: 1,200 mg Documented by: Ceftriaxone Sodium (Rocephin) 1 gm in 50 mls @ 100 mls/hr IV Q24@2200 [facility] Last Infusion: 06/14/19 23:26 Dose: Infused Documented by: Azithromycin 500 mg/ Dextrose 255 mls @ 250 mls/hr IV Q24@2200 [facility] Last Infusion: 06/14/19 22:57 Dose: Infused Documented by: Sodium Chloride () 250 mls @ 15 mls/hr IV .[id number] PRN PRN Reason: Saline Flush Insulin Human Lispro (Humalog Kwikpen (Bkc)) 0 unit SC ACHS [facility]; Protocol Last Admin: 06/15/19 06:33 Dose: Not Given Documented by: Linagliptin (Tradjenta) 5 mg PO DAILY [facility] Last Admin: 06/14/19 11:42 Dose: 5 mg Documented by: Metoprolol Tartrate (Lopressor (Beta Mark)) 50 mg PO BID [facility] Last Admin: 06/14/19 21:54 Dose: 50 mg Documented by: Ondansetron HCl (Zofran) 4 mg IV Q8H PRN PRN PRN Reason: NAUSEA/VOMITING Potassium Chloride (K-Dur) 20 meq PO DAILYCM [facility] Last Admin: 06/14/19 09:23 Dose: 20 meq Documented by: Sodium Chloride () 10 - 40 ml IV UD PRN PRN Reason: SALINE FLUSH Last Admin: 06/14/19 21:54 Dose: 10 ml Documented by: Tamsulosin HCl (Flomax) 0.4 mg PO BID [facility] Last Admin: 06/14/19 21:54 Dose: 0.4 mg Documented by: Venlafaxine HCl (Effexor Xr) 150 mg PO DAILY [facility] Last Admin: 06/14/19 09:23 Dose: 150 mg Documented by: Medical Necessity - Tobacco Use Smoking Status: Former smoker Assessment/Plan All Active Problems (Last Updated 06/14/19 @ 08:26 by Marilia Riddle MD) Community acquired pneumonia (Acute) Sepsis (Acute) This is a 78 years old male patient presented to the emergency room because of shortness of breath and cough and he was found to have right lower lobe infiltrate consistent with community-acquired pneumonia with sepsis. #1 right lower lobe community-acquired pneumonia/sepsis: Remained on IV Rocephin and Zithromax. He has been afebrile overnight, no leukocytosis. Lactic acid was normal. Nasal swab for influenza A and B were negative. Blood and sputum cultures pending. Respiratory panel for viruses was negative. Plan continue same treatment, wean off oxygen, repeat CBC and BMP tomorrow morning. #2 hypoxia: Secondary to above. Today, he is requiring 3 L of oxygen but he denies any worsening shortness of breath. Plan to potassium treatment, continue bronchodilators, encourage incentive spirometer, wean off oxygen as tolerated. #3 CAD status post stents: EKG without acute ischemic changes. Troponin is negative. Continue aspirin, Plavix, statins and metoprolol. #4 type 2 diabetes mellitus: Blood sugar stable, continue glimepiride and Januvia, Accu-Cheks, insulin sliding scale. #5 chronic diastolic CHF: Clinically stable, compensated. Continue Lasix and metoprolol. #6 hypertension: Blood pressure stable, continue Norvasc and metoprolol as well as Lasix. #7 history of stroke: With resultant left-sided body weakness, left upper extremity monoparesis. Continue aspirin, Plavix and statins. #8 hyperlipidemia: Continue statins. #9 benign prostatic hypertrophy: Continue Flomax. #10 DVT prophylaxis: Subcu Lovenox. This note was generated with [employer] dictation software. It may contain incorrect words, spelling, and punctuation that were not noted in checking the note before signing. Code Visit Inpatient E&M: 77083 Subs Hosp L2
--- NOTE | 2019-06-15 08:29 | NURSING ---
Daughter Leesa Pena called in and requested update on pt.- states that she is trying to get her mother situated in a alf with her sisters and now has patient here in hospital. This RN obtained verbal consent from patient to speak with Leesa prior to giving any information. Leesa states she wanted to call to let staff know that they need to be kept in the loop to be sure they have the proper care available for him at D/C. She states that patient is typically very stubborn and does not always tell the truth as to how he is doing and every time they talk to him he tells them he is coming home today. Leesa requests that staff be sure that patient is over bronchitis prior to returning home as they cannot handle him being this acutely ill.
[2019-06-15] MEDS: amLODIPine 5 MG Tablet PO (09:16)
[2019-06-15] MEDS: Aspirin E.C. 81 MG Tablet PO (09:16)
[2019-06-15] MEDS: LINAGLIPTIN 5 MG TABLET PO (09:16)
[2019-06-15] MEDS: Clopidogrel Bisulfate 75 MG Tablet PO (09:16)
[2019-06-15] MEDS: Furosemide 40 MG Tablet PO (09:17)
[2019-06-15] MEDS: guaiFENesin 1,200 MG Tablet 1200 MG PO ×2 (09:17→21:06)
[2019-06-15] MEDS: Glimepiride 2 MG Tablet PO (09:17)
[2019-06-15] MEDS: Venlafaxine XR 150 MG Capsule PO (09:17)
[2019-06-15] MEDS: Tamsulosin HCl 0.4 MG Capsule PO ×2 (09:17→21:06)
[2019-06-15] MEDS: Metoprolol Tartrate 50 MG Tablet PO ×2 (09:17→21:06)
[2019-06-15] MEDS: Enoxaparin 40 MG/0.4 ML Syringe SC (11:07)
[2019-06-15 11:31] LABS: Bedside Glucose 135 mg/dL (70-110)
[2019-06-15 16:05] LABS: Bedside Glucose 222 mg/dL (70-110)
[2019-06-15] MEDS: Insulin Lispro 100 UNIT/ML INSULN.PEN SC ×2 (16:06→22:10)
[2019-06-15] MEDS: Acetaminophen 325 MG Tablet 650 MG PO (19:49)
[2019-06-15] MEDS: 0.9% Saline Lock 10 ML Syringe IV (21:03)
[2019-06-15] MEDS: Ceftriaxone 1 GM/50 ML BAG IV (21:06)
[2019-06-15] MEDS: Atorvastatin Calcium 80 MG Tablet PO (21:06)
[2019-06-15 22:21] LABS: Bedside Glucose 163 mg/dL (70-110)
[2019-06-16] VITALS (15 sets, daily range): BP systolic 104–127; BP diastolic 44–73; PULSE 68–101; RESP 18–32; TEMP 36.4–37.5; O2SAT 88–96
[2019-06-16 05:19] LABS: Basophil# 0.05 X10^3/uL; Basophil% 0.7 % (0-1); Eosinophil# 0.22 X10^3/uL; Hematocrit 39.7 % (40-54); Hemoglobin 12.4 g/dL (13.0-16.5); Lymphocyte % 16.3 % (19-41); Mean Corp Hgb Conc 31.2 g/dL (32-36); Mean Corpuscular Hgb 29.5 pg (27.0-32.0); Mean Corpuscular Volume 94.5 fL (80-94); Mean Platelet Vol. 10.1 fl (6.2-12.0); Monocyte% 10.9 % (0-10); NRBC Flagged by Analyzer 0 % (0-5); Neutrophil # 5.02 X10^3/uL (2.7-7.7); Neutrophil % 68.4 % (47-70); POSITIVE COUNT YES; Platelet Count 165 K/mm3 (150-450); RBC Distribution Width CV 13.5 % (11.6-14.6); RBC Distribution Width SD 47.3 fl (35.1-43.9); White Blood Count 7.3 K/mm3 (4.4-11.0)
[2019-06-16 05:38] LABS: Anion Gap 8 (5-15); BUN 21 mg/dL (7-18); BUN/Creat Ratio 19.8 RATIO (10-20); Calcium,Total 8.6 mg/dL (8.5-10.1); Chloride 106 mmol/L (98-107); Creatinine, Serum 1.06 mg/dL (0.70-1.30); EST Glomerular Filtration Rate 72 mL/min (>60); Est Glom Filt Rate - Afr Amer 87 mL/min (>60); Estimated Creatinine Clearance 63.04 ml/min; Glucose 107 mg/dL (74-106); Potassium 4.2 mmol/L (3.5-5.1); Sodium Level 139 mmol/L (136-145)
[2019-06-16 05:59] LABS: Differential Indicated SCAN CRITERIA MET
[2019-06-16 06:55] LABS: Bedside Glucose 121 mg/dL (70-110)
[2019-06-16] MEDS: Ipratropium/Albuterol Sulfate 3 ML AMPUL.NEB INHALATION ×4 (07:11→20:38)
[2019-06-16] MEDS: Venlafaxine XR 150 MG Capsule PO (07:56)
[2019-06-16] MEDS: guaiFENesin 1,200 MG Tablet 1200 MG PO ×2 (07:57→21:31)
[2019-06-16] MEDS: LINAGLIPTIN 5 MG TABLET PO (07:57)
[2019-06-16] MEDS: Furosemide 40 MG Tablet PO (07:57)
[2019-06-16] MEDS: Tamsulosin HCl 0.4 MG Capsule PO ×2 (07:57→21:30)
[2019-06-16] MEDS: amLODIPine 5 MG Tablet PO (07:57)
[2019-06-16] MEDS: Clopidogrel Bisulfate 75 MG Tablet PO (07:58)
[2019-06-16] MEDS: Aspirin E.C. 81 MG Tablet PO (07:58)
[2019-06-16] MEDS: Glimepiride 2 MG Tablet PO (07:58)
--- NOTE | 2019-06-16 08:06 | NURSING ---
meds given with apple sauce.
--- NOTE | 2019-06-16 08:26 | PCM.PROGNOTE ---
Patient Problems: Active and Suspected Problems (Last Updated 06/16/19 @ 07:21 by Marilia Riddle MD) Sepsis (Acute) Community acquired pneumonia (Acute) Subjective: Chief complaint: Follow-up after admission for sepsis and probable community-acquired pneumonia. Patient seen and examined. No acute events overnight. He is feeling better, shortness of breath and cough is improving. He remains on 3 L of oxygen. Today, patient mentioned that he has been on oxygen at home and he does have the oxygen tank but he has not been using it for the last year. He is supposed to be on 2 L of oxygen. His other vital signs are stable, afebrile. - Physical Exam Vitals/I&O's: Vital Signs Temp Pulse Resp BP Pulse Ox 98.5 F 88 32 H 112/59 L 91 06/16/19 07:44 06/16/19 07:44 06/16/19 07:44 06/16/19 07:44 06/16/19 07:44 Oxygen Flow Rate (L/min) 3 Oxygen Delivery Method Nasal Cannula Weight: 182 lb 1.629 oz Body Mass Index (BMI) 24.7 Finger Stick Blood Glucose 127 Intake and Output for Last 24 Hours 06/14/19 06/15/19 06/16/19 23:59 23:59 22:59 Intake Total 2510.0 / 2510.0 455 / 455 100 / 100 Output Total 675 / 675 730 / 730 200 / 200 Balance 1835.0 / 1835.0 -275 / -275 -100 / -100 General: Alert, Oriented x3, Cooperative, No apparent distress HEENT: Atraumatic, PERRLA, EOMI, Normocephalic Oral: Moist Mucosa, No Gingival or Mucosal Lesions/ Ulcerations Neck: Supple, No JVD, Negative Carotid Bruits, Trachea Midline, Thyroid Normal Size and Texture Lungs: No wheeze, Diminished, Rales, Rhonchi, - - Decreased breath sounds at the bases, faint crackles in the right base. Cardiovascular: Regular rate, Regular Rhythm, Normal S1, Normal S2, PMI Normal Abdomen: Bowel Sounds Present, Soft, Non Tender, Non-Distended, No Hepato-splenomegaly Extremities: No clubbing, No cyanosis, No edema Skin: No rashes, No breakdown Lymphatic: No Cervical, Supraclavicular, or Inguinal Adenopathy Neurological: Cranial nerves II-XII grossly intact, - - Left-sided hemiparesis. Psych/Mental Status: Normal Affect, Appropriate, Alert and oriented to time, place, person, mood and affect Microbiology Past 72 Hours 06/14/19 18:40 Sputum, Expectorated/Coughed Gram Stain - Final 06/14/19 18:40 Sputum, Expectorated/Coughed Respiratory Culture - Preliminary Appears to be normal respiratory sebastian. Further studies to follow. 06/14/19 03:00 Mucosa - Nasopharyngeal Respiratory Panel (PCR) - Final 06/13/19 21:03 Mucosa - Nose Influenza Types A,B Direct FA (INEZ) - Final Laboratory Results 06/15/19 11:05: POC Glucose 135 H 06/15/19 16:00: POC Glucose 222 H 06/15/19 22:09: POC Glucose 163 H 06/16/19 04:15: WBC 7.3, RBC 4.20 L, Hgb 12.4 L, Hct 39.7 L, MCV 94.5 H, MCH 29.5, MCHC 31.2 L, RDW Std Deviation 47.3 H, RDW Coeff of Jeff 13.5, Plt Count 165, MPV 10.1, Immature Gran % (Auto) 0.700, Neut % (Auto) 68.4, Lymph % (Auto) 16.3 L, [place] % (Auto) 10.9 H, Eos % (Auto) 3.0, Baso % (Auto) 0.7, Absolute Neuts (auto) 5.0, Absolute Lymphs (auto) 1.20, Nucleated RBC % 0, Differential Comment 06/16/19 04:15: Sodium 139, Potassium 4.2, Chloride 106, Carbon Dioxide 25.0, Anion Gap 8, BUN 21 H, Creatinine 1.06, Estim Creat Clear Calc 63.04, Est GFR (MDRD) Af Amer 87, Est GFR (MDRD) Non-Af 72, BUN/Creatinine Ratio 19.8, Glucose 107 H, Calcium 8.6 06/16/19 06:45: POC Glucose 121 H Current Medications Acetaminophen (Tylenol) 650 mg PO Q6H PRN PRN PRN Reason: Pain Score 1-3/Temp > 100.7 F Last Admin: 06/15/19 19:49 Dose: 650 mg Documented by: Albuterol Sulfate (Ventolin Aerosols) 2.5 mg INHALATION Q2H PRN PRN PRN Reason: Shortness of Breath/Wheezing Albuterol/Ipratropium (Duoneb) 3 ml INHALATION Q4HWA.RT [facility] Last Admin: 06/15/19 19:59 Dose: 3 ml Documented by: Alprazolam (Xanax) 0.5 mg PO BID PRN PRN PRN Reason: ANXIETY Amlodipine Besylate (Norvasc) 5 mg PO DAILY [facility] Last Admin: 06/16/19 07:57 Dose: 5 mg Documented by: Aspirin (Ecotrin) 81 mg PO DAILYCM [facility] Last Admin: 06/16/19 07:58 Dose: 81 mg Documented by: Atorvastatin Calcium (Lipitor) 80 mg PO QHS [facility] Last Admin: 06/15/19 21:06 Dose: 80 mg Documented by: Clopidogrel Bisulfate (Plavix) 75 mg PO DAILY [facility] Last Admin: 06/16/19 07:58 Dose: 75 mg Documented by: Dextrose (D50w Syringe) 0 gm IV X1 PRN; Protocol PRN Reason: Hypoglycemia Enoxaparin Sodium (Lovenox) 40 mg SC DAILY@1000 [facility] Last Admin: 06/15/19 11:07 Dose: 40 mg Documented by: Furosemide (Lasix) 40 mg PO DAILY [facility] Last Admin: 06/16/19 07:57 Dose: 40 mg Documented by: Glimepiride (Amaryl) 2 mg PO DAILYCM [facility] Last Admin: 06/16/19 07:58 Dose: 2 mg Documented by: Glucagon () 1 mg IM .X1 PRN PRN Reason: Hypoglycemia Guaifenesin (Mucinex) 1,200 mg PO BID [facility] Last Admin: 06/16/19 07:57 Dose: 1,200 mg Documented by: Ceftriaxone Sodium (Rocephin) 1 gm in 50 mls @ 100 mls/hr IV Q24@2200 [facility] Last Infusion: 06/15/19 21:36 Dose: Infused Documented by: Azithromycin 500 mg/ Dextrose 255 mls @ 250 mls/hr IV Q24@2200 [facility] Last Infusion: 06/15/19 23:16 Dose: Infused Documented by: Sodium Chloride () 250 mls @ 15 mls/hr IV .[id number] PRN PRN Reason: Saline Flush Insulin Human Lispro (Humalog Kwikpen (Bkc)) 0 unit SC ACHS [facility]; Protocol Last Admin: 06/16/19 06:48 Dose: Not Given Documented by: Linagliptin (Tradjenta) 5 mg PO DAILY [facility] Last Admin: 06/16/19 07:57 Dose: 5 mg Documented by: Metoprolol Tartrate (Lopressor (Beta Mark)) 50 mg PO BID [facility] Last Admin: 06/15/19 21:06 Dose: 50 mg Documented by: Ondansetron HCl (Zofran) 4 mg IV Q8H PRN PRN PRN Reason: NAUSEA/VOMITING Potassium Chloride (K-Dur) 20 meq PO DAILYCM [facility] Last Admin: 06/16/19 07:57 Dose: 20 meq Documented by: Sodium Chloride () 10 - 40 ml IV UD PRN PRN Reason: SALINE FLUSH Last Admin: 06/15/19 21:03 Dose: 10 ml Documented by: Tamsulosin HCl (Flomax) 0.4 mg PO BID [facility] Last Admin: 06/16/19 07:57 Dose: 0.4 mg Documented by: Venlafaxine HCl (Effexor Xr) 150 mg PO DAILY [facility] Last Admin: 06/16/19 07:56 Dose: 150 mg Documented by: Medical Necessity - Tobacco Use Smoking Status: Former smoker Assessment/Plan All Active Problems (Last Updated 06/16/19 @ 07:21 by Marilia Riddle MD) Sepsis (Acute) Community acquired pneumonia (Acute) This is a 78 years old male patient presented to the emergency room because of shortness of breath and cough and he was found to have right lower lobe infiltrate consistent with community-acquired pneumonia with sepsis. #1 right lower lobe community-acquired pneumonia/sepsis: He is on day 3 of IV Rocephin and Zithromax. Had a spike of low-grade fever last night, has been afebrile since then, on 3 L of oxygen. Repeat CBC and BMP from today was unremarkable. Lactic acid was normal. Nasal swab for influenza A and B were negative. Blood and sputum cultures pending. Respiratory panel for viruses was negative. Plan to continue same treatment, anticipate discharge home tomorrow. #2 hypoxia: Secondary to above. Remains on 3 L, denied worsening shortness of breath. Today, patient mentioned that he does have oxygen at home but he did not use it for the last year. He was on oxygen at 2 L. So patient does have chronic hypoxic respiratory failure and on home oxygen. #3 CAD status post stents: EKG without acute ischemic changes. Troponin is negative. Continue aspirin, Plavix, statins and metoprolol. #4 type 2 diabetes mellitus: Blood sugar stable, continue glimepiride and Januvia, Accu-Cheks, insulin sliding scale. #5 chronic diastolic CHF: Clinically stable, compensated. Continue Lasix and metoprolol. #6 hypertension: Blood pressure stable, continue Norvasc and metoprolol as well as Lasix. #7 history of stroke: With resultant left-sided body weakness, left upper extremity monoparesis. Continue aspirin, Plavix and statins. #8 hyperlipidemia: Continue statins. #9 benign prostatic hypertrophy: Continue Flomax. #10 DVT prophylaxis: Subcu Lovenox. This note was generated with [employer] dictation software. It may contain incorrect words, spelling, and punctuation that were not noted in checking the note before signing. Code Visit Inpatient E&M: 23382 Subs Hosp L2
[2019-06-16] MEDS: Metoprolol Tartrate 50 MG Tablet PO ×2 (09:54→21:32)
[2019-06-16] MEDS: Enoxaparin 40 MG/0.4 ML Syringe SC (09:54)
[2019-06-16 11:15] LABS: Bedside Glucose 175 mg/dL (70-110)
[2019-06-16] MEDS: Insulin Lispro 100 UNIT/ML INSULN.PEN SC ×2 (12:25→21:28)
[2019-06-16 17:26] LABS: Bedside Glucose 134 mg/dL (70-110)
[2019-06-16] MEDS: Ceftriaxone 1 GM/50 ML BAG IV (21:21)
[2019-06-16] MEDS: 0.9% Saline Lock 10 ML Syringe IV ×2 (21:21→23:46)
[2019-06-16] MEDS: Atorvastatin Calcium 80 MG Tablet PO (21:30)
[2019-06-16 21:51] LABS: Bedside Glucose 151 mg/dL (70-110)
[2019-06-17] VITALS (9 sets, daily range): BP systolic 127–137; BP diastolic 57–65; PULSE 84–100; RESP 16–20; TEMP 36.9–37.4; O2SAT 88–95
[2019-06-17 07:01] LABS: Bedside Glucose 133 mg/dL (70-110)
[2019-06-17] MEDS: Ipratropium/Albuterol Sulfate 3 ML AMPUL.NEB INHALATION ×2 (07:05→10:35)
[2019-06-17] MEDS: Aspirin E.C. 81 MG Tablet PO (07:58)
[2019-06-17] MEDS: Glimepiride 2 MG Tablet PO (07:58)
--- NOTE | 2019-06-17 08:40 | RAD_ITS ---
STUDY: X-RAY CHEST REASON FOR EXAM: Male, 78 years old. Shortness of breath. TECHNIQUE: Single AP portable view of the chest. COMPARISON: Comparison is made with prior examination dated June 14, 2019. FINDINGS: Surgical clips are seen in the left cervical region most likely secondary to prior thyroid surgery. Since prior study, there has been progressive infiltration in the left lower lobe. Stable right lower lobe infiltrate. Hyperinflation. Normal size heart. Normal mediastinum and freddie. Normal visualized pulmonary arteries. There is atherosclerotic calcification of the aortic arch with tortuosity. Normal visualized thoracic spine. Normal visualized ribs, clavicles, and shoulders. There is no demonstrated abnormality of the visualized soft tissue structures of the upper abdomen. RAD/Chest 1 View (Portable) IMPRESSION: Progressive left lower lobe infiltrate. Stable right lower lobe infiltrate. Electronically Signed: Larry Norton, at 9:33 EST , Service support ,
--- NOTE | 2019-06-17 09:13 | DCINST_ITS ---
- Discharge Diagnoses Current Active Problems: Current Active and Chronic Problems (Last Updated 06/16/19 @ 07:21 by Marilia Riddle MD) Sepsis (Acute) You will use the following diet at home:: Calorie/Carbohydrate Controlled (specify 1200, 1400, etc) - 1800 froylan., Cardiac Your food should be the consistency of: Regular Discharge Activity: Return to Normal Activity Weight Bearing Status: Weight bearing as tolerated Call your doctor if you observe: Fever of 101 or Higher, Shortness of breath, Dizziness, Fainting spells, Chest pain, Increased palpitations (irregular heartbeat), Uncontrolled pain Instructions: Using Oxygen at Home Allergies/Adverse Reactions: Allergies procaine [From Novocain] Allergy (Unknown, Verified 06/13/19 19:20) Unknown fluoxetine [From Prozac] Adverse Reaction (Verified 06/13/19 19:20) Other HALLUCINATIONS Medications to take at Discharge Tamsulosin HCl [Flomax] 0.4 mg PO BID 11/15/16 Furosemide [Lasix] 40 mg PO DAILY #30 tab 12/21/16 Potassium Chloride [K-Dur] 20 meq PO DAILYCM #30 tab 12/21/16 Amlodipine [Norvasc] 5 mg PO DAILY 05/04/17 Glimepiride [Amaryl] 8 mg PO DAILY 05/05/17 aspirin 81 mg tablet,delayed release 81 mg PO QDAY 09/01/17 clopidogrel 75 mg tablet 75 mg PO QDAY 09/01/17 rosuvastatin 40 mg tablet 40 mg PO QHS #90 tab 10/09/17 metoprolol tartrate 50 mg tablet 50 mg PO BID tab 04/10/18 ALPRAZolam [Xanax] 0.5 mg PO BID PRN PRN 06/13/19 Sitagliptin Phosphate [Januvia] 100 mg PO DAILY 06/13/19 Venlafaxine HCl [Venlafaxine HCl ER] 150 mg PO DAILY 06/13/19 levoFLOXacin tablet [Levaquin tablet] 750 mg PO DAILY #5 tab 06/17/19 The following prescriptions were given: levoFLOXacin tablet [Levaquin tablet] 750 mg PO DAILY #5 tab Transmission Status: Pending to [id number] Primary Care Physician: Fredy Ribeiro MD [Primary Care Provider] - Please follow up with your Primary Care Physician in: 1 week. Test Results: Test results from this visit will be discussed in further detail at your follow- up appointment, if applicable.
[2019-06-17] MEDS: Enoxaparin 40 MG/0.4 ML Syringe SC (11:11)
[2019-06-17] MEDS: Metoprolol Tartrate 50 MG Tablet PO (11:11)
[2019-06-17] MEDS: Furosemide 40 MG Tablet PO (11:12)
[2019-06-17] MEDS: amLODIPine 5 MG Tablet PO (11:12)
[2019-06-17] MEDS: Tamsulosin HCl 0.4 MG Capsule PO (11:12)
[2019-06-17] MEDS: LINAGLIPTIN 5 MG TABLET PO (11:12)
[2019-06-17] MEDS: Venlafaxine XR 150 MG Capsule PO (11:12)
[2019-06-17] MEDS: guaiFENesin 1,200 MG Tablet 1200 MG PO (11:12)
[2019-06-17] MEDS: Clopidogrel Bisulfate 75 MG Tablet PO (11:13)
[2019-06-17] MEDS: Insulin Lispro 100 UNIT/ML INSULN.PEN SC (11:14)
--- NOTE | 2019-06-17 11:20 | NURSING ---
pt was 87% on ra
[2019-06-17 11:26] LABS: Bedside Glucose 223 mg/dL (70-110)
--- NOTE | 2019-06-17 11:30 | CASEMGMT ---
OSMEL ROJAS updated that patient will need new updated oxygen script at discharge. OSMEL ROJAS in to talk with patient regarding oxygen already setup at home. Patient states that he has portable and stationary oxygen at home but not sure of what company it is through. Patient gave permission to call daughter Alexandra. OSMEL ROJAS called daughter Alexandra regarding home oxygen. Daughter verified that patient has portable and stationary oxygen and is through [employer]. OSMEL ROJAS requested daughter bring portable tank to hospital for when patient is discharged. OSMEL ROJAS obtained updated oxygen script and sent referral to [employer]. OSMEL ROJAS inquired if patient would like HHC at discharge, patient denied HHC. OSMEL ROJAS updated that should he reconsider HHC, he can follow-up with PCP. Patient voiced understanding.
--- NOTE | 2019-06-17 13:13 | PCM.DC.SUM ---
Discharge Date and Diagnosis Date of Admission: 06/13/19 Date of Discharge: 06/17/19 - Primary Discharge Diagnosis #1 acute right lower lobe community-acquired pneumonia with sepsis. #2 chronic hypoxic respiratory failure. - Secondary Discharge Diagnosis Chronic Problems (Last Updated 06/16/19 @ 07:21 by Marilia Riddle MD) Acute diastolic (congestive) heart failure (Chronic) due to AF with RVR + NSTEMI Atrial fibrillation with RVR (Chronic) Presence of coronary angioplasty implant and graft (Chronic ~11/22/16) PTCA/LARISSA of prox and mid LAD 11/22/16 Valvular heart disease (Chronic) Presence of stent in coronary artery (Chronic ~11/22/16) PTCA/LARISSA of prox and mid LAD 11/22/16 Atherosclerotic heart disease of [place] coronary artery without angina pectoris (Chronic) PTCA/LARISSA of prox and mid LAD 11/22/16 History of bilateral carotid endarterectomy (Chronic) HLD (hyperlipidemia) (Chronic) HTN (hypertension) (Chronic) Hospital Course and Treatment Imaging Results: 06/17/19 08:40 CXR [Chest 1 View (Portable)] [RAD] Urgent Clinical Impression(s) from Imaging Studies Chest X-Ray 06/13/19 20:25 IMPRESSION: Chronic interstitial changes Electronically Signed: Mark Anthony Marcial MD at 21:02 EDT , Service support , Chest X-Ray 06/14/19 12:00 IMPRESSION: Right lower lung infiltrate. Electronically Signed: Randell Fernando MD at 8:35 EDT , Service support , Operations: None, - - none Summary of Care Provided: Patient seen and examined on the day of discharge and appeared to be stable to be discharged home. He denies any more shortness of breath although his oxygen requirement slightly increased. He went up to 4 L. Normally, he wears 2 L of oxygen at home. He denies chest pain, palpitation, fever or chills. His other vital signs are stable. The patient is a 78 year old M presented to the emergency room because of shortness of breath and cough and he was found to have right lower lobe infiltrate consistent with community-acquired pneumonia with sepsis. Initially, patient was admitted as a case of acute bronchitis because initial chest x-ray showed no acute infiltrate. Repeat chest x-ray revealed right lower lobe infiltrate. Patient was treated with IV Rocephin and Zithromax. He remained afebrile for more than 48 hours and he had no leukocytosis. Blood culture showed no growth in 48 hours. Nasal swab for influenza a and B were negative. Respiratory panel for viruses were negative. Sputum culture revealed presumptive Jenn albicans and there was no indication to treat this Jenn albicans. With treatment, patient symptoms improved although his oxygen requirement was slightly increasing. Patient states that he has been on oxygen at home at 2 L but he has not been using it. Patient required up to 4 L oxygen upon discharge. Repeat chest x-ray on the day of discharge reviewed and revealed faint right lower lobe infiltrate which looks improving. Officially, chest x-ray was read as progressive left lower lobe infiltrate which I doubt. I did not see any worsening infiltrate on the left lower lobe. Patient was insisted to go home and he wanted to be discharged. Patient discharged home in a stable medical condition, discharged on Levaquin 750 mill grams p.o. daily for 5 days to complete total of 7 days of treatment, continued on his previous home medications without any changes, instructed to use oxygen at home at 3 to 4 L, recommended follow-up with PCP in 1 week. - Physical Exam Vitals/I&O's: Vital Signs Temp Pulse Resp BP Pulse Ox 98.5 F 100 18 127/57 H 88 06/17/19 08:19 06/17/19 11:11 06/17/19 10:35 06/17/19 08:19 06/17/19 11:31 Oxygen Flow Rate (L/min) 4 Oxygen Delivery Method Nasal Cannula Weight: 182 lb 1.629 oz Body Mass Index (BMI) 24.7 Finger Stick Blood Glucose 127 Intake and Output for Last 24 Hours 06/16/19 06/16/19 06/17/19 00:59 23:59 23:59 Intake Total 100 / 100 Output Total 150 / 150 Balance -50 / -50 General: Alert, Oriented x3, Cooperative, No apparent distress HEENT: Atraumatic, PERRLA, EOMI, Normocephalic Oral: Moist Mucosa, No Gingival or Mucosal Lesions/ Ulcerations Neck: Supple, No JVD, Negative Carotid Bruits, Trachea Midline, Thyroid Normal Size and Texture Lungs: No rhonchi, No wheeze, Diminished, - - Decreased breath sounds at the bases. faint crackles in the right base Cardiovascular: Regular rate, Regular Rhythm, Normal S1, Normal S2 Abdomen: Bowel Sounds Present, Soft, Non Tender, Non-Distended, No Hepato-splenomegaly Extremities: No clubbing, No cyanosis, No edema Lymphatic: No Cervical, Supraclavicular, or Inguinal Adenopathy Neurological: Cranial nerves II-XII grossly intact, - - Chronic left-sided hemiparesis. Psych/Mental Status: Normal Affect, Appropriate Microbiology Past 72 Hours 06/14/19 18:40 Sputum, Expectorated/Coughed Gram Stain - Final 06/14/19 18:40 Sputum, Expectorated/Coughed Respiratory Culture - Final Presumptive C albicans 06/13/19 20:00 Blood Culture (Wb) - Anticubital Right Blood Culture - Preliminary No growth in 48 hours. 06/13/19 20:05 Blood Culture (Wb) - Right Wrist Blood Culture - Preliminary No growth in 48 hours. Laboratory Results 06/16/19 16:28: POC Glucose 134 H 06/16/19 21:27: POC Glucose 151 H 06/17/19 06:52: POC Glucose 133 H 06/17/19 11:05: POC Glucose 223 H Discharge Activity: Return to Normal Activity Weight Bearing Status: Weight bearing as tolerated Call your doctor if you observe: Fever of 101 or Higher, Shortness of breath, Dizziness, Fainting spells, Chest pain, Increased palpitations (irregular heartbeat), Uncontrolled pain Home Medications: Medications to take at Discharge Tamsulosin HCl [Flomax] 0.4 mg PO BID 11/15/16 Furosemide [Lasix] 40 mg PO DAILY #30 tab 12/21/16 Potassium Chloride [K-Dur] 20 meq PO DAILYCM #30 tab 12/21/16 Amlodipine [Norvasc] 5 mg PO DAILY 05/04/17 Glimepiride [Amaryl] 8 mg PO DAILY 05/05/17 aspirin 81 mg tablet,delayed release 81 mg PO QDAY 09/01/17 clopidogrel 75 mg tablet 75 mg PO QDAY 09/01/17 rosuvastatin 40 mg tablet 40 mg PO QHS #90 tab 10/09/17 metoprolol tartrate 50 mg tablet 50 mg PO BID tab 04/10/18 ALPRAZolam [Xanax] 0.5 mg PO BID PRN PRN 06/13/19 Sitagliptin Phosphate [Januvia] 100 mg PO DAILY 06/13/19 Venlafaxine HCl [Venlafaxine HCl ER] 150 mg PO DAILY 06/13/19 levoFLOXacin tablet [Levaquin tablet] 750 mg PO DAILY #5 tab 06/17/19 Following Prescrptions Were Given to Patient: levoFLOXacin tablet [Levaquin tablet] 750 mg PO DAILY #5 tab Transmission Status: Received by [id number] Primary Care Physician: Fredy Ribeiro MD [Primary Care Provider] - Please follow up with your Primary Care Physician in: 1 week. Please Follow Up With: saba When: 1 week Patient Instructions: Using Oxygen at Home Disposition: Home Minutes spent on discharge:: 32 Patient Condition:: Stable Medical Necessity - Tobacco Use Smoking Status: Former smoker Meaningful Use Info Meaningful Use Diagnoses (Choose all that apply): None applicable Code Visit Inpatient E&M: 71612 Disch Hosp
--- NOTE | 2019-06-18 13:48 | CASEMGMT ---
OSMEL DC PHONE CALL DC DATE: 06/17/19 DC Disposition: Home Diagnosis on Discharge: CHF LACE/STRATA: 07/17 Attempted call to phone. No answer and no message machine with name identifier. Rashid MARRERO RN ACM
== END 2019-06-17 11:55 | disposition home or self-care (01) | DRG 871 ==
LOC: ED 20:28 → MS3 23:31
PROVIDERS: Admitting Provider Hospitalist; Emergency Provider Emergency Medicine; Family Provider Family Medicine; PCP Family Medicine; Visit Provider Hospitalist
DX: A41.9 Sepsis, unspecified organism (principal); J18.9 Pneumonia, unspecified organism; I50.32 Chronic diastolic (congestive) heart failure; J96.11 Chronic respiratory failure with hypoxia; I25.10 Atherosclerotic heart disease of native coronary artery without angina pectoris; I11.0 Hypertensive heart disease with heart failure; N40.0 Benign prostatic hyperplasia without lower urinary tract symptoms; Z95.5 Presence of coronary angioplasty implant and graft; Z79.84 Long term (current) use of oral hypoglycemic drugs; Z87.891 Personal history of nicotine dependence; I69.334 Monoplegia of upper limb following cerebral infarction affecting left non-dominant side; Z99.81 Dependence on supplemental oxygen
CPT/HCPCS: 36415; 71045; 80048; 81001; 82962; 83605; 84484; 85025; 85027; 87040; 87070; 87205; 87633; 87804; 93005; 94640; 94667; 94668; 97110; 97163; 97166; 97530; 99285; J7030; A4216

== ENCOUNTER 2020-11-15 15:09 | Observation (INO) | payer MEDICARE, SELFPAY ==
[2016-11-23 08:13] VITALS: BMI 24.7
[2019-06-14 00:09] VITALS: BMI 24.7
[2020-11-15 14:05] VITALS: BP 148/87; PULSE 82; RESP 18; TEMP 37.2; O2SAT 93
[2020-11-15 14:13] VITALS: BMI 22.4
[2020-11-15 15:05] VITALS: PULSE 64; O2SAT 93
[2020-11-15 15:12] VITALS: BMI 22.4
--- NOTE | 2020-11-15 15:14 | RAD_ITS ---
INDICATION: right hip pain EXAMINATION/TECHNIQUE: X-RAY - RIGHT XR Hip Unilateral with Pelvis when performed; 2-3 Views COMPARISON: 11/19/2016. FINDINGS: Status post ORIF with periarticular plate and cerclage wires for a previously described fracture deformity of the left proximal femur. 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 There is also a total left hip arthroplasty status post revision which appears to be in good position. Moderate asymmetric joint space narrowing and osteophytosis of the right hip. Degenerative changes of the pubic symphysis and lumbar spine as well. RAD/HIP, UNI W/ Pelvis 2-3 Views IMPRESSION: No acute radiographic abnormalities. 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 Total left hip replacement with periarticular plate and cerclage wires transfixing a healed chronic fracture deformity of the left proximal femur. Electronically Signed: Piter Dubois MD at 16:12 EDT Tel , Service support ,
--- NOTE | 2020-11-15 15:15 | PCM.HP.STD ---
Problem List (1) Failure to thrive Status: Acute (2) Urinary retention Status: Acute (3) Acute diastolic (congestive) heart failure Status: Chronic Comment: due to AF with RVR + NSTEMI (4) Atrial fibrillation with RVR Status: Chronic (5) Presence of coronary angioplasty implant and graft Status: Chronic Comment: PTCA/LARISSA of prox and mid LAD 11/22/16 (6) Acute non-ST elevation myocardial infarction (NSTEMI) Status: Inactive (7) Valvular heart disease Status: Chronic (8) Sepsis Status: Acute (9) Community acquired pneumonia Status: Acute (10) Presence of stent in coronary artery Status: Chronic Comment: PTCA/LARISSA of prox and mid LAD 11/22/16 (11) Occlusion and stenosis of bilateral carotid arteries Status: Inactive (12) 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 Patient also wanted to get his Carolina catheter out because it is difficult for him to sit down and have a bowel movement. Patient was seen at the outside emergency room for urinary retention and a catheter was placed. There is concern for urinary tract infection and patient was started on antibiotics. Patient developed right groin hip pain beginning last night became much more intense today and patient presented to the emergency room. They evaluated him with a head CT, abdominal CT chest x-ray which were unremarkable. Patient was checked for COVID-19 which is also negative given some underlying hypoxia. Patient does have oxygen at home which she uses intermittently. Patient minimize a lot of his symptoms saying that he just wants catheter out and that he is fine to manage on his own at home and minimizes his history of a massive right MCA stroke saying that he had this simple TIA. I did speak with the emergency room and stated that the patient appeared to be covered in dirt when they arrived to their hospital today. [] Past Medical History Past Medical History (Chronic Problems): Chronic Problems (Last Reviewed 11/15/20 @ 15:[address] 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 Arsalan Ley, DO) Occlusion and stenosis of bilateral carotid arteries (Inactive) I65.23 HLD (hyperlipidemia) (Chronic) E78.5 HTN (hypertension) (Chronic) I10 Anemia D64.9 Anxiety and depression F41.8 Bilateral pleural effusion J90 CVA (cerebral vascular accident) I63.9 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 Type 2 diabetes mellitus E11.9 BPH (benign prostatic hypertrophy) (Inactive) N40.0 CAD (coronary artery disease) (Inactive) I25.10 Chronic renal failure, stage 2 (mild) (Inactive) N18.2 Left hemiplegia (Inactive) G81.94 Osteoarthritis of left hip (Inactive) M16.12 PAOD (peripheral arterial occlusive disease) (Inactive) I77.9 Presence of IVC filter (Inactive) Z95.828 Stroke (Inactive) I63.9 Subdural hematoma (Inactive) I62.00 Allergies procaine [From Novocain] Allergy (Unknown, Verified 06/13/19 19:20) Unknown fluoxetine [From Prozac] Adverse Reaction (Verified 06/13/19 19:20) Other HALLUCINATIONS Home Medications: Ambulatory Orders Medication Instructions Recorded Tamsulosin HCl [Flomax] 0.4 mg PO BID 11/15/16 Furosemide [Lasix] 40 mg PO DAILY #30 tab 12/21/16 Potassium Chloride Oral Tablet 20 meq PO DAILYCM #30 tab 12/21/16 [K-Dur] Amlodipine [Norvasc] 5 mg PO DAILY 05/04/17 Glimepiride [Amaryl] 8 mg PO DAILY 05/05/17 aspirin 81 mg tablet,delayed 81 mg PO QDAY 09/01/17 release clopidogrel 75 mg tablet 75 mg PO QDAY 09/01/17 rosuvastatin 40 mg tablet 40 mg PO QHS #90 tab 10/09/17 metoprolol tartrate 50 mg tablet 50 mg PO BID tab 04/10/18 ALPRAZolam [Xanax] 0.5 mg PO BID PRN PRN 06/13/19 Sitagliptin Phosphate [Januvia] 100 mg PO DAILY 06/13/19 Venlafaxine HCl [Venlafaxine HCl 150 mg PO DAILY 06/13/19 ER] levoFLOXacin tablet [Levaquin 750 mg PO DAILY #5 tab 06/17/19 tablet] Surgical History: Surgical History (Last Reviewed 11/15/20 @ 15:[address] Arsalan Ley DO) Presence of stent in coronary artery (Chronic) Onset Date: ~11/22/16 Z95.5 PTCA/LARISSA of prox and mid LAD 11/22/16 History of bilateral carotid endarterectomy (Chronic) Z98.890 History of herniorrhaphy Z98.890, Z87.19 History of total left hip arthroplasty Z96.642 Surgical History: herniorrhaphy, total hip arthroplasty - Left hip, TURP, - - Bilateral carotid endarterectomies, IVC filter insertion Psychiatric History: Anxiety, Depression Smoking Status: Former smoker - *Family History Maternal Family History: Family History (Last Reviewed 11/15/20 @ 15:[address] Arsalan Ley DO) Mother Diabetes Father Kidney disease History Items: Diabetes, Heart Disease Paternal Family History: Family History (Last Reviewed 11/15/20 @ 15:[address] Arsalan Ley DO) Mother Diabetes Father Kidney disease History Items: Renal Disease Review of Systems Constitutional: Denies: Anorexia, Fever, Night Sweats Eyes: Denies: Blurred vision, Double vision HEENT: Denies: Head Aches, Sinus Congestion, Sinus Drainage Cardiovascular: Denies: Chest Pain, Palpitations Respiratory: Denies: Cough, Shortness of breath at rest, Sputum production Gastrointestinal: Denies: Abdominal Pain, Nausea, Vomiting Genitourinary: Reports: Retention Musculoskeletal: Reports: Leg Pain Hematologic/ Lymphatic: Denies: Easy Bruising, Easy Bleeding Comment: All review of systems were negative except as mentioned above in the history of present illness and the other review of systems. VTE Information - Inpt Only VTE Present on Admission: No VTE Mechan Device Prophylaxis: None VTE Pharm Prophylaxis ordered?: No Reason prophylaxis not ordered:: Treatment Not Indicated Patient Problems: Active and Suspected Problems (Last Reviewed 11/15/20 @ 15:[address] Arsalan Ley, DO) Sepsis (Acute) Community acquired pneumonia (Acute) Failure to thrive (Acute) Urinary retention (Acute) - Physical Exam Vitals/I&O's: Vital Signs Temp Pulse Resp BP Pulse Ox 37.2 C 82 18 148/87 H 93 11/15/20 14:05 11/15/20 14:05 11/15/20 14:05 11/15/20 14:05 11/15/20 14:05 Oxygen Flow Rate (L/min) 2 Oxygen Delivery Method Nasal Cannula Weight: 74.9 kg Body Mass Index (BMI) 22.4 Finger Stick Blood Glucose 127 General: Alert, Cooperative, No apparent distress, - - Disheveled HEENT: Atraumatic, Normocephalic, - - Left facial droop Oral: No Gingival or Mucosal Lesions/ Ulcerations, Dry Mucosa Neck: No Nodes, Thyroid Normal Size and Texture Lungs: Clear to auscultation, Normal air movement, No rhonchi, No wheeze, No rales Cardiovascular: Regular rate, Regular Rhythm, Normal S1, Normal S2 Abdomen: Bowel Sounds Present, Soft, Non Tender, Non-Distended, No Hepato-splenomegaly Extremities: No edema, No Calf Tenderness Skin: No rashes, No breakdown Musculoskeletal: - - Normal range of motion of the right hip and right knee with active and passive range of motion without reproducible pain. The right knee has no effusions no masses no swelling. And right hip moves without pain. Neurological: - - Muscle strength 5-5 in the right upper, right lower and left lower extremity. 1 out of 5 in the left upper extremity. No clonus Psych/Mental Status: Appropriate, Flat Affect Personally reviewed head CT showed massive right MCA stroke. Discussed with the emergency room physician who read the report to me saying that this is chronic and unchanged from prior imaging. ER physician informing the abdominal CT was negative Chest x-ray showed some interstitial edema, no significant change from image on 06/17/2019. Urinalysis showed only 11-25 white blood cells and seconds it was 6-10. Did show 51-100 red blood cells today CBC: White count 9.6, hemoglobin 15.4 and platelets 195. This was from November 13. BMP: Sodium 137, potassium 4.1, glucose 272 and creatinine 1.36. Current Medications Acetaminophen (Acetaminophen 325 Mg Tablet) 650 mg PO Q6H PRN PRN PRN Reason: Pain Score 1-10/Temp > 100.7 F Alprazolam (Alprazolam 0.5 Mg Tablet) 0.5 mg PO BID PRN PRN PRN Reason: ANXIETY Amlodipine Besylate (Amlodipine 5 Mg Tablet) 5 mg PO DAILY [facility] Aspirin (Aspirin E.C. 81 Mg Tablet) 81 mg PO QDAY [facility] Clopidogrel Bisulfate (Clopidogrel Bisulfate 75 Mg Tablet) 75 mg PO QDAY [facility] Dextrose (Dextrose 50%-Water 25 Gm/50 Ml Disp.Syrin) 0 gm IV X1 PRN; Protocol PRN Reason: Hypoglycemia Glucagon (Glucagon 1 Mg/Ml Syringe) 1 mg IM .X1 PRN PRN Reason: Hypoglycemia Sodium Chloride () 250 mls @ 15 mls/hr IV .[id number] PRN PRN Reason: Saline Flush Sodium Chloride () 1,000 mls @ 150 mls/hr IV .Q6H40M [facility] Stop: 11/15/20 21:49 Insulin Human Lispro (Insulin Lispro 100 Unit/Ml Insuln.Pen) 0 unit SC TIDAC [facility]; Protocol Metoprolol Tartrate (Metoprolol Tartrate 50 Mg Tablet) 50 mg PO BID [facility] Non-Formulary Medication (Rosuvastatin Calcium) 40 mg PO QHS [facility] Non-Formulary Medication (Venlafaxine Hcl) 150 mg PO DAILY [facility] Ondansetron HCl (Ondansetron 4 Mg/2 Ml Vial) 4 mg IV Q8H PRN PRN PRN Reason: NAUSEA/VOMITING Sodium Chloride (0.9% Saline Lock 10 Ml Syringe) 10 - 40 ml IV UD PRN PRN Reason: SALINE FLUSH Tamsulosin HCl (Tamsulosin Hcl 0.4 Mg Capsule) 0.4 mg PO BID [facility] Assessment/Plan All Active Problems (Last Reviewed 11/15/20 @ 15:[address] Arsalan Ley, DO) Sepsis (Acute) Community acquired pneumonia (Acute) Failure to thrive (Acute) Urinary retention (Acute) 1. Failure to thrive Patient has multiple medical comorbidities with left-sided hemiparesis. Patient has not been eating or drinking much over the past few days. Partly this related with urinary retention the patient was experiencing but a catheter was placed on the second. I do not see any evidence of urinary tract infection or acute kidney injury but patient does look slightly dry so we will give the patient some IV fluids. We will have physical and occupational therapy evaluate the patient. Patient expressed reluctance to it with them. But I did speak with the patient's and explained the situation. She stated that the patient is obstinate but agrees with him staying in the hospital to be further evaluated. I did relay this to the patient and he reluctantly agreed to work with the therapist on the fifth. 2. Urinary retention Carolina catheter placed at outside hospital on the second Will continue with a [place] catheter. Patient on tamsulosin Follow-up with urology to have the catheter removed Informed the patient that the catheter would not be removed while he is in the hospital because he had urethral strictures and was unable to self catheterize himself at home which is what he was doing up to about 3 months ago. 3. History of stroke Patient has had a massive right-sided MCA stroke that has left him with left upper extremity hemiparesis Continue with aspirin and clopidogrel 4. Diabetes mellitus type 2 Sliding scale insulin for now Hold his oral meds until he can eat adequately 5. Abnormal urinalysis Patient had some bacteria but his white count the second and today was very low therefore not suggesting urinary tract infection. Some of the bacteriuria is likely just colonization and not a true infection Will hold off in his antibiotics at this time. 6. Paroxysmal atrial fibrillation In normal sinus rhythm Continue with metoprolol 7.VTE prophylaxis: Not indicated given observation status. OBSV E&M: 83742 Initial observation care L3
[2020-11-15] MEDS: 0.9% Saline Lock 10 ML Syringe IV (16:58)
[2020-11-15] MEDS: 0.9% Normal Saline 1,000 ML 150 ML IV (16:59)
[2020-11-15] MEDS: amLODIPine 5 MG Tablet PO (17:09)
[2020-11-15] MEDS: Aspirin E.C. 81 MG Tablet PO (17:09)
[2020-11-15] MEDS: Clopidogrel Bisulfate 75 MG Tablet PO (17:09)
[2020-11-15] MEDS: Venlafaxine XR 150 MG Capsule PO (17:09)
[2020-11-15] MEDS: Insulin Lispro 100 UNIT/ML INSULN.PEN SC (17:14)
[2020-11-15 17:16] LABS: Bedside Glucose 191 mg/dL (70-110)
[2020-11-15 20:45] VITALS: BP 137/73; PULSE 84; RESP 18; TEMP 37.1; O2SAT 93
[2020-11-15 22:32] VITALS: BP 137/73; PULSE 84
[2020-11-15] MEDS: Tamsulosin HCl 0.4 MG Capsule PO (22:32)
[2020-11-15] MEDS: Metoprolol Tartrate 50 MG Tablet PO (22:32)
[2020-11-15] MEDS: Atorvastatin Calcium 80 MG Tablet PO (22:32)
[2020-11-15] MEDS: Acetaminophen 325 MG Tablet 650 MG PO (22:32)
[2020-11-15 22:41] LABS: Bedside Glucose 239 mg/dL (70-110)
[2020-11-16 02:55] VITALS: BP 126/58; PULSE 51; RESP 16; TEMP 36.9; O2SAT 93
--- NOTE | 2020-11-16 03:10 | NURSING ---
Offered to reposition pt but he refused. Asked if his buttocks was getting sore and he said no. Has been sitting in bed with HOB elevated 60 degrees, leaning to left (his weak side). Added a pillow for support. Will continue to offer to reposition him during rounds.
[2020-11-16] MEDS: Insulin Lispro 100 UNIT/ML INSULN.PEN SC ×3 (06:29→17:26)
[2020-11-16 06:41] LABS: Bedside Glucose 211 mg/dL (70-110)
[2020-11-16 06:44] LABS: Absolute Lymphocyte Count 1.13 X10^3/uL (0.83-4.51); Absolute Neutrophil Count 4.6 X10^3/uL (2.0-7.7); Basophil# 0.03 X10^3/uL; Basophil% 0.4 % (0-1); Eosinophil# 0.33 X10^3/uL; Eosinophils% 4.9 % (0-5); Hematocrit 42.2 % (40-54); Hemoglobin 13.4 g/dL (13.0-16.5); Lymphocyte # 1.13 X10^3/ul (4.0); Lymphocyte % 16.7 % (19-41); Mean Corp Hgb Conc 31.8 g/dL (32-36); Mean Corpuscular Hgb 29.5 pg (27.0-32.0); Mean Platelet Vol. 9.9 fl (6.2-12.0); Monocyte# 0.66 X10^3/uL; Monocyte% 9.7 % (0-10); NRBC Flagged by Analyzer 0 % (0-5); Neutrophil % 67.9 % (47-70); Platelet Count 156 K/mm3 (150-450); RBC Distribution Width CV 13.4 % (11.6-14.6); RBC Distribution Width SD 46.3 fl (35.1-43.9); Red Blood Count 4.54 M/mm3 (4.6-6.2); White Blood Count 6.8 K/mm3 (4.4-11.0)
[2020-11-16 07:03] LABS: Anion Gap 7 (5-15); BUN 13 mg/dL (7-18); Calcium,Total 8.6 mg/dL (8.5-10.1); Chloride 104 mmol/L (98-107); Creatinine, Serum 1.08 mg/dL (0.70-1.30); EST Glomerular Filtration Rate 70 mL/min (>60); Est Glom Filt Rate - Afr Amer 85 mL/min (>60); Estimated Creatinine Clearance 57.79 ml/min; Glucose 205 mg/dL (74-106); Potassium 3.9 mmol/L (3.5-5.1); Sodium Level 138 mmol/L (136-145)
[2020-11-16 09:00] VITALS: BP 134/69; PULSE 67; RESP 18; TEMP 36.8; O2SAT 94
[2020-11-16] MEDS: Acetaminophen 325 MG Tablet 650 MG PO ×2 (10:13→17:31)
[2020-11-16] MEDS: Aspirin E.C. 81 MG Tablet PO (10:14)
[2020-11-16 10:15] VITALS: PULSE 67
[2020-11-16] MEDS: Tamsulosin HCl 0.4 MG Capsule PO ×2 (10:15→23:18)
[2020-11-16] MEDS: amLODIPine 5 MG Tablet PO (10:15)
[2020-11-16] MEDS: Celecoxib 200 MG Capsule PO (10:15)
[2020-11-16] MEDS: Metoprolol Tartrate 50 MG Tablet PO ×2 (10:15→23:18)
[2020-11-16] MEDS: Venlafaxine XR 150 MG Capsule PO (10:15)
[2020-11-16] MEDS: Cholecalciferol (VIT D3) 25 MCG TABLET (1,000 UNITS) 50 MCG PO (10:16)
[2020-11-16] MEDS: Clopidogrel Bisulfate 75 MG Tablet PO (10:16)
--- NOTE | 2020-11-16 10:37 | PN_ITS ---
Patient Problems: Active and Suspected Problems (Last Reviewed 11/15/20 @ 15:[address] Arsalan Ley, DO) Sepsis (Acute) Community acquired pneumonia (Acute) Failure to thrive (Acute) Urinary retention (Acute) Reason for Visit: Follow-up for chronic debility secondary to stroke, left-sided weakness, failure to thrive Objective: Afebrile. Heart rate and blood pressure in normal range. Patient has contracture of left knee, left hip, left elbow and wrist joint. His left medial 3 fingers have flexion contracture and cannot open it. Physical exam General: Alert, Oriented x3, Cooperative HEENT: Atraumatic, PERRLA, EOMI, Normocephalic. Left-sided facial droop Oral: No Gingival or Mucosal Lesions/ Ulcerations Neck: Supple, No JVD, Negative Carotid Bruits Lungs: Air entry diminished in bilateral lung bases. No crepitation/rhonchi Cardiovascular: Regular rate, Regular Rhythm, Normal S1, Normal S2, No murmurs Abdomen: Bowel Sounds Present, Soft, Non Tender, Non-Distended : No renal angle tenderness. No suprapubic tenderness. Extremities: No edema, Capillary Refill Less than 3 Seconds Skin: No rashes, No breakdown Musculoskeletal: Flexion contracture of left upper and lower extremity at shoulder, elbow, wrist, hip and knee joints. Muscle strength 1-2/5 in left upper and lower extremity. Mild tenderness to the palpation of right hip/groin and knee joints due to arthritis. No Tenderness to Palpation of Joints or Extremities Neurological: Chronic left-sided hemiparesis. Cranial nerves II-XII grossly intact, Deep Tendon Reflexes 2+/4 and Symmetrical, Neuro grossly intact Psych/Mental Status: Flat affect. Vitals/I&O's: Vital Signs Temp Pulse Resp BP Pulse Ox 98.4 F 51 L 16 126/58 H 93 11/16/20 02:55 11/16/20 02:55 11/16/20 02:55 11/16/20 02:55 11/16/20 02:55 Oxygen Flow Rate (L/min) 2 Oxygen Delivery Method Nasal Cannula Weight: 165 lb 2.02 oz Body Mass Index (BMI) 22.4 Finger Stick Blood Glucose 127 Intake and Output for Last 24 Hours 11/14/20 11/15/20 11/16/20 23:59 23:59 23:59 Intake Total 420 / 420 1000 / 1000 Output Total 425 / 425 300 / 300 Balance -5 / -5 700 / 700 Laboratory Results 11/15/20 17:07: POC Glucose 191 H 11/15/20 22:25: POC Glucose 239 H 11/16/20 06:25: WBC 6.8, RBC 4.54 L, Hgb 13.4, Hct 42.2, MCV 93.0, MCH 29.5, MCHC 31.8 L, RDW Std Deviation 46.3 H, RDW Coeff of Jeff 13.4, Plt Count 156, MPV 9.9, Immature Gran % (Auto) 0.400, Neut % (Auto) 67.9, Lymph % (Auto) 16.7 L, [place] % (Auto) 9.7, Eos % (Auto) 4.9, Baso % (Auto) 0.4, Absolute Neuts (auto) 4.6, Absolute Lymphs (auto) 1.13, Nucleated RBC % 0 11/16/20 06:25: Sodium 138, Potassium 3.9, Chloride 104, Carbon Dioxide 27.0, Anion Gap 7, BUN 13, Creatinine 1.08, Estim Creat Clear Calc 57.79, Est GFR (MDRD) Af Amer 85, Est GFR (MDRD) Non-Af 70, BUN/Creatinine Ratio 12.0, Glucose 205 H, Calcium 8.6 11/16/20 06:28: POC Glucose 211 H Current Medications Acetaminophen (Acetaminophen 325 Mg Tablet) 650 mg PO Q6H PRN PRN PRN Reason: Pain Score 1-10/Temp > 100.7 F Last Admin: 11/15/20 22:32 Dose: 325 mg Documented by: Alprazolam (Alprazolam 0.5 Mg Tablet) 0.5 mg PO BID PRN PRN PRN Reason: ANXIETY Amlodipine Besylate (Amlodipine 5 Mg Tablet) 5 mg PO DAILY [facility] Last Admin: 11/15/20 17:09 Dose: 5 mg Documented by: Aspirin (Aspirin E.C. 81 Mg Tablet) [facility] Last Admin: 11/15/20 17:09 Dose: 81 mg Documented by: Atorvastatin Calcium (Atorvastatin Calcium 80 Mg Tablet) 80 mg PO QHS [facility] Last Admin: 11/15/20 22:32 Dose: 80 mg Documented by: Baclofen (Baclofen 10 Mg Tablet) 10 mg PO TID PRN PRN PRN Reason: muscle spasms Celecoxib (Celecoxib 200 Mg Capsule) 200 mg PO DAILY [facility] Cholecalciferol (Cholecalciferol (Vit D3) 25 Mcg Tablet (1,000 Units)) 50 mcg PO DAILY [facility] Clopidogrel Bisulfate (Clopidogrel Bisulfate 75 Mg Tablet) 75 mg PO DAILY [facility] Last Admin: 11/15/20 17:09 Dose: 75 mg Documented by: Dextrose (Dextrose 50%-Water 25 Gm/50 Ml Disp.Syrin) 0 gm IV X1 PRN; Protocol PRN Reason: Hypoglycemia Glucagon (Glucagon 1 Mg/Ml Syringe) 1 mg IM .X1 PRN PRN Reason: Hypoglycemia Sodium Chloride () 250 mls @ 15 mls/hr IV .[id number] PRN PRN Reason: Saline Flush Insulin Human Lispro (Insulin Lispro 100 Unit/Ml Insuln.Pen) 0 unit SC TIDAC [facility]; Protocol Last Admin: 11/16/20 06:29 Dose: 2 u Documented by: Metoprolol Tartrate (Metoprolol Tartrate 50 Mg Tablet) 50 mg PO BID [facility] Last Admin: 11/15/20 22:32 Dose: 50 mg Documented by: Ondansetron HCl (Ondansetron 4 Mg/2 Ml Vial) 4 mg IV Q8H PRN PRN PRN Reason: NAUSEA/VOMITING Sodium Chloride (0.9% Saline Lock 10 Ml Syringe) 10 - 40 ml IV UD PRN PRN Reason: SALINE FLUSH Last Admin: 11/15/20 16:58 Dose: 10 ml Documented by: Tamsulosin HCl (Tamsulosin Hcl 0.4 Mg Capsule) 0.4 mg PO BID [facility] Last Admin: 11/15/20 22:32 Dose: 0.4 mg Documented by: Venlafaxine HCl (Venlafaxine Xr 150 Mg Capsule) 150 mg PO DAILY [facility] Last Admin: 11/15/20 17:09 Dose: 150 mg Documented by: Medical Necessity - Tobacco Use Smoking Status: Former smoker Assessment/Plan All Active Problems (Last Reviewed 11/15/20 @ 15:[address] Arsalan Ley DO) Sepsis (Acute) Community acquired pneumonia (Acute) Failure to thrive (Acute) Urinary retention (Acute) 1. 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 At home he is being helped by his and daughter. In [facility] patient had [place] catheter placed due to urinary retention. Patient had 1 L of normal saline bolus at time of admission but still his urine is dark yellow in concentration. Patient has multiple medical comorbidities with left-sided hemiparesis. Patient has not been eating or drinking much over the past few days. Partly this related with urinary retention the patient was experiencing but a catheter was placed on the second. I do not see any evidence of urinary tract infection or acute kidney injury but patient does look slightly dry so we will give the patient some IV fluids. We will have physical and occupational therapy evaluate the patient. Patient expressed reluctance to it with them. But I did speak with the patient's and explained the situation. She stated that the patient is obstinate but agrees with him staying in the hospital to be further evaluated. I did relay this to the patient and he reluctantly agreed to work with the therapist on the fifth. 2. Urinary retention due to urethral stricture: [place] catheter inserted at [facility] on November 13. On tamsulosin. Follow-up with urology to have the catheter removed. Consult urologist. Patient was unable to self catheterize at home 3. History of stroke, right-sided large stroke with left hemiparesis Continue with aspirin and clopidogrel 4. Diabetes mellitus type 2 Sliding scale insulin for now. Patient has decreased oral appetite Hold his oral meds until he can eat adequately 5. Abnormal urinalysis with asymptomatic bacteriuria/colonization Patient had some bacteria but his white count on November 13 and November 15 was very low therefore not suggesting urinary tract infection. May be colonization and not a true infection. Patient did not have fever or leukocytosis Will hold off in his antibiotics at this time. 6. Paroxysmal atrial fibrillation In normal sinus rhythm Continue with metoprolol 7.VTE prophylaxis: Mild hematuria, coated on the [place] catheter tube tube. Bilateral SCDs. Patient is high risk for DVT because of left hemiparesis. Started on Lovenox 40 mg subcu daily Living will/advanced directive/end of life care: Patient does not have living will or advanced directive. His is next of kin and power of state attorney for health. After discussion of benefits/risks procedures involved with full code, DNR CC arrest and DNR CC, the patient opted for DNR-CC Arrest with no intubation Patient does not want artificial life support including intubation, tube feed, ventilator and/chest compression, central venous catheter, vasopressor and DC shock if needed Total time spent in [id number] encounter in discussion of advanced directive 16 minutes. Inpatient E&M: 91878 Subs Hosp L2 Procedures: 61148 Advncd Care Plan 30 Min
--- NOTE | 2020-11-16 10:45 | CASEMGMT ---
OSMEL ROJAS Assessment: Face to Face with pt for initial transition planning/care coordination assessment. OSMEL ROJAS introduced self and role at [facility], pt voices understanding and consents to assessment. Pt is A/O x4 and answers all questions appropriately at this time. Pt sitting up in chair with dtr Alexandra at bedside. Care providers, pharmacy, and demographics verified/updated. Admitting Dx: FTT PCP: Philippe Specialists: Pt states he has specialists but unable to recall their names. Dtr was not aware either. Preferred Pharmacy: Pt states he uses the [facility] in [place]. Insurance: [facility] Prescription Benefit: yes LW/HPOA: Pt reports having a DPOA which is his Jihan. It is on file at [facility]. LNOK: Jihan and dtr Alexandra Lua. Living Arrangements: Pt lives with his as well as his dtr Alexandra in a 2 story home. Pt mainly uses the bottom floor. He has a stairlift that goes to the basement. Pt has a ramp to enter the home. Pt needs assistance with dressing and bathing. Currently the dtr assists. Pt denies any concerns at home. Dtr reports they are currently looking into help for pt as he needs two people to assist him with getting in the shower. Transportation: Pt reports he seldom drives, his dtr transports him. DME/HHC/SNF: Pt reports he has an electric w/c, walk in tub, alyson cane, hemiwalker, O2 concentrator and portables but pt does not use. Pt states he doesn't feel better wearing O2 and doesn't need it. He has a pulse ox and reports it is always above 90% and is never sob. His O2 was initially set up through [employer]. Pt has previously had PT through the [facility] and has had a stay at [facility]. Pt states he is not agreeable to any home PT even if recommended. Dtr states this is needed. Pt and dtr had a short disagreement regarding this and his dtr at this point appeared upset and stated she was leaving the room to get his hemiwalker. Pt states that if he has to go home with the owens catheter, he would be agreeable to having home half-way and a home health aide. Pt very upset regarding catheter. States he wants it out. Pt states no concerns with going home at time of dc. Pt states no further concerns/needs. CM to follow for HHC if needed. Advised pt to ask CM if any further question/concerns/needs arise, voices understanding. Pt Goal: Home Plan: Home with family support, following for HHC needs and O2.
[2020-11-16] MEDS: 0.9% Saline Lock 10 ML Syringe IV (12:30)
[2020-11-16] MEDS: Lactated Ringers 1,000 ML 75 ML IV (12:30)
[2020-11-16] MEDS: Enoxaparin 40 MG/0.4 ML Syringe SC (12:30)
[2020-11-16 12:31] LABS: Bedside Glucose 261 mg/dL (70-110)
[2020-11-16] MEDS: ALPRAZolam 0.5 MG Tablet PO (13:41)
[2020-11-16] MEDS: Baclofen 10 MG Tablet PO (13:41)
[2020-11-16] MEDS: Glucerna Shake 120 ML LIQUID PO ×2 (13:44→23:18)
[2020-11-16 14:00] VITALS: BP 109/63; PULSE 51; RESP 14; TEMP 36.6; O2SAT 94
--- NOTE | 2020-11-16 15:40 | CASEMGMT ---
Pt dtr spoke with this CM and stated she his having difficulty at home managing pt and that he need to have therapy if it is recommended. She states the pt has to [facility] and he will not do it. She states he can be stubborn at times. Made her aware that the patient needs to be agreeable to the therapy. She verbalizes understanding. OSMEL CM in to discuss SOARES form with patient. RN CRYSTAL explained SOARES form, patient voiced understanding. Pt signed form and filed in chart. Pt provided with a copy of signed SOARES form. Pt at this time also stated he would like therapy at home if it is recommended. Patient had no further questions or concerns at this time.
[2020-11-16 17:31] LABS: Bedside Glucose 243 mg/dL (70-110)
[2020-11-16 23:08] VITALS: BP 159/81; PULSE 78; RESP 17; TEMP 36.6; O2SAT 94
[2020-11-16 23:18] VITALS: PULSE 78
[2020-11-16] MEDS: Atorvastatin Calcium 80 MG Tablet PO (23:18)
[2020-11-16 23:31] LABS: Bedside Glucose 244 mg/dL (70-110)
[2020-11-17] MEDS: 0.9% Saline Lock 10 ML Syringe IV (02:11)
[2020-11-17 03:05] VITALS: BP 125/72; PULSE 64; RESP 15; TEMP 36.7; O2SAT 93
--- NOTE | 2020-11-17 05:36 | NURSING ---
Offered to reposition pt several times throughout night. Only allowed twice. Spoke with pt on the need to offset the weight on his buttocks in order to prevent breakdown. Pt states understanding. Will continue to encourage repositioning.
[2020-11-17 05:55] LABS: Absolute Lymphocyte Count 1.45 X10^3/uL (0.83-4.51); Absolute Neutrophil Count 4.2 X10^3/uL (2.0-7.7); Basophil# 0.03 X10^3/uL; Basophil% 0.5 % (0-1); Eosinophil# 0.27 X10^3/uL; Eosinophils% 4.1 % (0-5); Hematocrit 40.5 % (40-54); Hemoglobin 12.8 g/dL (13.0-16.5); Lymphocyte # 1.45 X10^3/ul (4.0); Lymphocyte % 21.8 % (19-41); Mean Corp Hgb Conc 31.6 g/dL (32-36); Mean Corpuscular Hgb 29.8 pg (27.0-32.0); Mean Corpuscular Volume 94.4 fL (80-94); Mean Platelet Vol. 9.9 fl (6.2-12.0); Monocyte# 0.68 X10^3/uL; Monocyte% 10.2 % (0-10); NRBC Flagged by Analyzer 0 % (0-5); Neutrophil # 4.19 X10^3/uL (2.7-7.7); Neutrophil % 62.9 % (47-70); Platelet Count 151 K/mm3 (150-450); RBC Distribution Width CV 13.6 % (11.6-14.6); RBC Distribution Width SD 46.4 fl (35.1-43.9); Red Blood Count 4.29 M/mm3 (4.6-6.2); White Blood Count 6.7 K/mm3 (4.4-11.0)
[2020-11-17 06:22] LABS: Anion Gap 4 (5-15); BUN 22 mg/dL (7-18); Calcium,Total 8.8 mg/dL (8.5-10.1); Chloride 106 mmol/L (98-107); Creatinine, Serum 1.22 mg/dL (0.70-1.30); EST Glomerular Filtration Rate 61 mL/min (>60); Est Glom Filt Rate - Afr Amer 74 mL/min (>60); Estimated Creatinine Clearance 51.16 ml/min; Glucose 267 mg/dL (74-106); Potassium 4.1 mmol/L (3.5-5.1); Sodium Level 136 mmol/L (136-145)
[2020-11-17] MEDS: Insulin Lispro 100 UNIT/ML INSULN.PEN SC ×2 (06:40→11:28)
[2020-11-17] MEDS: Acetaminophen 325 MG Tablet 650 MG PO ×2 (06:40→13:11)
[2020-11-17 06:50] LABS: Bedside Glucose 255 mg/dL (70-110)
[2020-11-17 08:03] VITALS: O2SAT 93
[2020-11-17 09:05] VITALS: BP 119/51; PULSE 73; RESP 16; TEMP 36.7; O2SAT 96
[2020-11-17 09:17] VITALS: PULSE 73
[2020-11-17] MEDS: Aspirin E.C. 81 MG Tablet PO (09:17)
[2020-11-17] MEDS: Metoprolol Tartrate 50 MG Tablet PO (09:17)
[2020-11-17] MEDS: Cholecalciferol (VIT D3) 25 MCG TABLET (1,000 UNITS) 50 MCG PO (09:17)
[2020-11-17] MEDS: Clopidogrel Bisulfate 75 MG Tablet PO (09:18)
[2020-11-17] MEDS: Celecoxib 200 MG Capsule PO (09:18)
[2020-11-17] MEDS: Venlafaxine XR 150 MG Capsule PO (09:18)
[2020-11-17] MEDS: Tamsulosin HCl 0.4 MG Capsule PO (09:18)
[2020-11-17] MEDS: amLODIPine 5 MG Tablet PO (09:19)
[2020-11-17] MEDS: Enoxaparin 40 MG/0.4 ML Syringe SC (09:19)
[2020-11-17] MEDS: Glucerna Shake 120 ML LIQUID PO ×2 (09:20→13:12)
[2020-11-17 09:30] VITALS: O2SAT 92
--- NOTE | 2020-11-17 09:51 | PCM.DC ---
- Discharge Diagnoses Current Active Problems: Current Active and Chronic Problems (Last Reviewed 11/15/20 @ 15:[address] Arsalan Ley, DO) Acute diastolic (congestive) heart failure (Chronic) due to AF with RVR + NSTEMI Atrial fibrillation with RVR (Chronic) Presence of coronary angioplasty implant and graft (Chronic ~11/22/16) PTCA/LARISSA of prox and mid LAD 11/22/16 Valvular heart disease (Chronic) Sepsis (Acute) Community acquired pneumonia (Acute) Failure to thrive (Acute) Urinary retention (Acute) Presence of stent in coronary artery (Chronic ~11/22/16) PTCA/LARISSA of prox and mid LAD 11/22/16 Atherosclerotic heart disease of [place] coronary artery without angina pectoris (Chronic) PTCA/LARISSA of prox and mid LAD 11/22/16 History of bilateral carotid endarterectomy (Chronic) HLD (hyperlipidemia) (Chronic) HTN (hypertension) (Chronic) You will use the following diet at home:: Calorie/Carbohydrate Controlled (specify 1200, 1400, etc) - 1800 ADA diet, Cardiac Your food should be the consistency of: Regular Discharge Activity: May Not Drive Call your doctor if you observe: Fever of 101 or Higher, Coldness, Increased Pain, Numbness or Tingling, Change in Color, Inability to urinate, Inability to have a bowel movement, Shortness of breath, Dizziness, Fainting spells, Swelling in the ankles, Chest pain, Increased palpitations (irregular heartbeat), Calf discomfort, Uncontrolled pain Allergies/Adverse Reactions: Allergies procaine [From Novocain] Allergy (Unknown, Verified 06/13/19 19:20) Unknown fluoxetine [From Prozac] Adverse Reaction (Verified 06/13/19 19:20) Other HALLUCINATIONS Medications to take at Discharge Potassium Chloride Oral Tablet [K-Dur] 20 meq PO DAILYCM #30 tab 12/21/16 Amlodipine [Norvasc] 5 mg PO DAILY 05/04/17 aspirin 81 mg tablet,delayed release 81 mg PO QDAY 09/01/17 clopidogrel 75 mg tablet 75 mg PO DAILY 09/01/17 rosuvastatin 40 mg tablet 40 mg PO QHS #90 tab 10/09/17 metoprolol tartrate 50 mg tablet 50 mg PO BID tab 04/10/18 Venlafaxine HCl [Venlafaxine HCl ER] 150 mg PO DAILY 06/13/19 Baclofen 10 mg PO TID PRN PRN 11/15/20 Celecoxib [Celebrex] 200 mg PO DAILY 11/15/20 Cholecalciferol (Vitamin D3) [Vitamin D3] 2,000 unit PO DAILY 11/15/20 Metformin HCl 500 mg PO BIDCM 11/15/20 ALPRAZolam [Xanax] 0.25 mg PO BID PRN PRN #0 11/17/20 Furosemide [Lasix] 20 mg PO DAILY PRN PRN #30 tab 11/17/20 Glimepiride [Amaryl] 8 mg PO DAILY #0 11/17/20 Tamsulosin HCl [Flomax] 0.8 mg PO DAILY #60 capsule 11/17/20 The following prescriptions were given: Tamsulosin HCl [Flomax] 0.8 mg PO DAILY #60 capsule Transmission Status: Pending to [id number] Primary Care Physician: Fredy Ribeiro MD [Primary Care Provider] - Please follow up with your Primary Care Physician in: in 1-2 weeks Test Results: Test results from this visit will be discussed in further detail at your follow-up appointment, if applicable.
--- NOTE | 2020-11-17 09:53 | DS.PCM_ITS ---
Discharge Date and Diagnosis - Problem List Patient Problems: Active and Suspected Problems (Last Reviewed 11/15/20 @ 15:[address] Arsalan Ley DO) Sepsis (Acute) Community acquired pneumonia (Acute) Failure to thrive (Acute) Urinary retention (Acute) Date of Admission: 11/15/20 Date of Discharge: 11/17/20 - Primary Discharge Diagnosis Acute Problems: Active Problems (Last Reviewed 11/15/20 @ 15:[address] Arsalan Ley DO) Sepsis (Acute) Community acquired pneumonia (Acute) Failure to thrive (Acute) Urinary retention (Acute) - Secondary Discharge Diagnosis Chronic Problems: Chronic Problems (Last Reviewed 11/15/20 @ 15:[address] Arsalan Ley DO) Acute diastolic (congestive) heart failure (Chronic) due to AF with RVR + NSTEMI Atrial fibrillation with RVR (Chronic) Presence of coronary angioplasty implant and graft (Chronic ~11/22/16) PTCA/LARISSA of prox and mid LAD 11/22/16 Valvular heart disease (Chronic) Presence of stent in coronary artery (Chronic ~11/22/16) PTCA/LARISSA of prox and mid LAD 11/22/16 Atherosclerotic heart disease of [place] coronary artery without angina pectoris (Chronic) PTCA/LARISSA of prox and mid LAD 11/22/16 History of bilateral carotid endarterectomy (Chronic) HLD (hyperlipidemia) (Chronic) HTN (hypertension) (Chronic) Hospital Course and Treatment Operations: None, - - none Summary of Care Provided: The patient is a 80 year old M was admitted for debilitating arthritis and failure to thrive. 1. Failure to thrive due to left-sided hemiparesis and right hip and knee joint arthrosis/degenerative arthritis: The patient was directly admitted from [facility] where he had [place] catheter placed due to urinary retention. Patient had 1 L of normal saline bolus at time of admission but still his urine is dark yellow in concentration. Patient well resuscitated with IV fluid Patient has multiple medical comorbidities with left-sided hemiparesis. Patient has not been eating or drinking much over the past few days. Partly this related with urinary retention the patient was experiencing but a catheter was placed on 11/13. I do not see any evidence of urinary tract infection or acute kidney injury urine was dark yellow due to volume contraction. Patient was developed repeat urine output was hardly put on chair with 2 people assist. 2. 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 On tamsulosin. Follow-up with urology Dr. Garcia to have the catheter removed. And is being discharged with [place] catheter 3. History of stroke, right-sided large stroke with left hemiparesis Continue with aspirin and clopidogrel 4. Diabetes mellitus type 2 and patient was put back on home regimen glimepiride 8 mg daily and Metformin. Estimated GFR 51 mL/min. Creatinine 1.22. 5. Abnormal urinalysis with asymptomatic bacteriuria/colonization Patient had some bacteria but his white count on November 13 and November 15 was very low therefore not suggesting urinary tract infection. May be colonization and not a true infection. Patient did not have fever or leukocytosis Will hold off in his antibiotics at this time. 6. Paroxysmal atrial fibrillation Patient is in normal sinus rhythm Continue with metoprolol 7.VTE prophylaxis: Mild hematuria, coated on the [place] catheter tube tube. Bilateral SCDs. Patient is high risk for DVT because of left hemiparesis. Started on Lovenox 40 mg subcu daily Living will/advanced directive/end of life care: Patient does not have living will or advanced directive. His is next of kin and power of commonwealth attorney for health. After discussion of benefits/risks procedures involved with full code, DNR CC arrest and DNR CC, the patient opted for DNR-CC Arrest with no intubation Patient does not want artificial life support including intubation, tube feed, ventilator and/chest compression, central venous catheter, vasopressor and DC shock if needed Discharge medication reconciliation done. Discharge follow-up instructions completed. Discharge process discussed with the patient and all questions were answered to patient's satisfaction. Patient is discharged home with home health care. Total time spent, exact 35 minutes on discharge meds reconciliation, examination, coordination of care with nurses and ancillary staff, review of imaging and blood test and discussion with the patient on follow-up instructions Patient Problems: Active and Suspected Problems (Last Reviewed 11/15/20 @ 15:[address] Arsalan Ley, ) Sepsis (Acute) Community acquired pneumonia (Acute) Failure to thrive (Acute) Urinary retention (Acute) Objective: It seems patient has been on bed for long time. He was put on the chair yesterday with help. With chronic contracture of left side and right-sided severe arthritis with associated weakness, patient is not a good candidate for rehab Physical exam General: Alert, Oriented x3, Cooperative HEENT: Atraumatic, PERRLA, EOMI, Normocephalic. Left-sided facial droop Oral: No Gingival or Mucosal Lesions/ Ulcerations Neck: Supple, No JVD, Negative Carotid Bruits Lungs: Air entry diminished in bilateral lung bases. No crepitation/rhonchi Cardiovascular: Regular rate, Regular Rhythm, Normal S1, Normal S2, No murmurs Abdomen: Bowel Sounds Present, Soft, Non Tender, Non-Distended : No renal angle tenderness. No suprapubic tenderness. Extremities: No edema, Capillary Refill Less than 3 Seconds Skin: No rashes, No breakdown Musculoskeletal: Flexion contracture of left upper and lower extremity at shoulder, elbow, wrist, hip and knee joints. Muscle strength 1-2/5 in left upper and lower extremity. Mild tenderness to the palpation of right hip/groin and knee joints, associated with weakness due to arthritis. Neurological: Chronic left-sided hemiparesis. Cranial nerves II-XII grossly intact, Deep Tendon Reflexes 2+/4 and Symmetrical, Neuro grossly intact Psych/Mental Status: Flat affect. - Physical Exam Vitals/I&O's: Vital Signs Temp Pulse Resp BP Pulse Ox 98.0 F 73 16 119/51 L 96 11/17/20 09:05 11/17/20 09:17 11/17/20 09:05 11/17/20 09:05 11/17/20 09:05 Oxygen Flow Rate (L/min) 2 Oxygen Delivery Method Nasal Cannula Weight: 165 lb 2.02 oz Body Mass Index (BMI) 22.4 Finger Stick Blood Glucose 127 Intake and Output for Last 24 Hours 11/15/20 11/16/20 11/17/20 23:59 23:59 23:59 Intake Total 420 / 420 1000 / 1000 1400 / 1400 Output Total 425 / 425 475 / 475 650 / 650 Balance -5 / -5 525 / 525 750 / 750 Laboratory Results 11/16/20 12:21: POC Glucose 261 H 11/16/20 17:24: POC Glucose 243 H 11/16/20 23:17: POC Glucose 244 H 11/17/20 05:40: WBC 6.7, RBC 4.29 L, Hgb 12.8 L, Hct 40.5, MCV 94.4 H, MCH 29.8, MCHC 31.6 L, RDW Std Deviation 46.4 H, RDW Coeff of Jeff 13.6, Plt Count 151, MPV 9.9, Immature Gran % (Auto) 0.500, Neut % (Auto) 62.9, Lymph % (Auto) 21.8, [place] % (Auto) 10.2 H, Eos % (Auto) 4.1, Baso % (Auto) 0.5, Absolute Neuts (auto) 4.2, Absolute Lymphs (auto) 1.45, Nucleated RBC % 0 11/17/20 05:40: Sodium 136, Potassium 4.1, Chloride 106, Carbon Dioxide 26.0, Anion Gap 4 L, BUN 22 H, Creatinine 1.22, Estim Creat Clear Calc 51.16, Est GFR (MDRD) Af Amer 74, Est GFR (MDRD) Non-Af 61, BUN/Creatinine Ratio 18.0, Glucose 267 H, Calcium 8.8 11/17/20 06:35: POC Glucose 255 H Current Medications Acetaminophen (Acetaminophen 325 Mg Tablet) 650 mg PO Q6H PRN PRN PRN Reason: Pain Score 1-10/Temp > 100.7 F Last Admin: 11/17/20 06:40 Dose: 650 mg Documented by: Alprazolam (Alprazolam 0.5 Mg Tablet) 0.5 mg PO BID PRN PRN PRN Reason: ANXIETY Last Admin: 11/16/20 13:41 Dose: 0.5 mg Documented by: Amlodipine Besylate (Amlodipine 5 Mg Tablet) 5 mg PO DAILY [facility] Last Admin: 11/17/20 09:19 Dose: 5 mg Documented by: Aspirin (Aspirin E.C. 81 Mg Tablet) [facility] Last Admin: 11/17/20 09:17 Dose: 81 mg Documented by: Atorvastatin Calcium (Atorvastatin Calcium 80 Mg Tablet) 80 mg PO QHS [facility] Last Admin: 11/16/20 23:18 Dose: 80 mg Documented by: Baclofen (Baclofen 10 Mg Tablet) 10 mg PO TID PRN PRN PRN Reason: muscle spasms Last Admin: 11/16/20 13:41 Dose: 10 mg Documented by: Celecoxib (Celecoxib 200 Mg Capsule) 200 mg PO DAILY [facility] Last Admin: 11/17/20 09:18 Dose: 200 mg Documented by: Cholecalciferol (Cholecalciferol (Vit D3) 25 Mcg Tablet (1,000 Units)) 50 mcg PO DAILY [facility] Last Admin: 11/17/20 09:17 Dose: 50 mcg Documented by: Clopidogrel Bisulfate (Clopidogrel Bisulfate 75 Mg Tablet) 75 mg PO DAILY [facility] Last Admin: 11/17/20 09:18 Dose: 75 mg Documented by: Dextrose (Dextrose 50%-Water 25 Gm/50 Ml Disp.Syrin) 0 gm IV X1 PRN; Protocol PRN Reason: Hypoglycemia Enoxaparin Sodium (Enoxaparin 40 Mg/0.4 Ml Syringe) 40 mg SC DAILY [facility] Last Admin: 11/17/20 09:19 Dose: 40 mg Documented by: Glucagon (Glucagon 1 Mg/Ml Syringe) 1 mg IM .X1 PRN PRN Reason: Hypoglycemia Sodium Chloride () 250 mls @ 15 mls/hr IV .[id number] PRN PRN Reason: Saline Flush Insulin Human Lispro (Insulin Lispro 100 Unit/Ml Insuln.Pen) 0 unit SC TIDAC [facility]; Protocol Last Admin: 11/17/20 06:40 Dose: 3 u Documented by: Metoprolol Tartrate (Metoprolol Tartrate 50 Mg Tablet) 50 mg PO BID [facility] Last Admin: 11/17/20 09:17 Dose: 50 mg Documented by: Nutritional Formula (Lactose Free) (Glucerna Shake 120 Ml Liquid) 120 ml PO 4X/DAY [facility] Last Admin: 11/17/20 09:20 Dose: 120 ml Documented by: Ondansetron HCl (Ondansetron 4 Mg/2 Ml Vial) 4 mg IV Q8H PRN PRN PRN Reason: NAUSEA/VOMITING Sodium Chloride (0.9% Saline Lock 10 Ml Syringe) 10 - 40 ml IV UD PRN PRN Reason: SALINE FLUSH Last Admin: 11/17/20 02:11 Dose: 10 ml Documented by: Tamsulosin HCl (Tamsulosin Hcl 0.4 Mg Capsule) 0.4 mg PO BID [facility] Last Admin: 11/17/20 09:18 Dose: 0.4 mg Documented by: Venlafaxine HCl (Venlafaxine Xr 150 Mg Capsule) 150 mg PO DAILY [facility] Last Admin: 11/17/20 09:18 Dose: 150 mg Documented by: Discharge Activity: May Not Drive Call your doctor if you observe: Fever of 101 or Higher, Coldness, Increased Pain, Numbness or Tingling, Change in Color, Inability to urinate, Inability to have a bowel movement, Shortness of breath, Dizziness, Fainting spells, Swelling in the ankles, Chest pain, Increased palpitations (irregular heartbeat), Calf discomfort, Uncontrolled pain Home Medications: Medications to take at Discharge Potassium Chloride Oral Tablet [K-Dur] 20 meq PO DAILYCM #30 tab 12/21/16 Amlodipine [Norvasc] 5 mg PO DAILY 05/04/17 aspirin 81 mg tablet,delayed release 81 mg PO QDAY 09/01/17 clopidogrel 75 mg tablet 75 mg PO DAILY 09/01/17 rosuvastatin 40 mg tablet 40 mg PO QHS #90 tab 10/09/17 metoprolol tartrate 50 mg tablet 50 mg PO BID tab 04/10/18 Venlafaxine HCl [Venlafaxine HCl ER] 150 mg PO DAILY 06/13/19 Baclofen 10 mg PO TID PRN PRN 11/15/20 Celecoxib [Celebrex] 200 mg PO DAILY 11/15/20 Cholecalciferol (Vitamin D3) [Vitamin D3] 2,000 unit PO DAILY 11/15/20 Metformin HCl 500 mg PO BIDCM 11/15/20 ALPRAZolam [Xanax] 0.25 mg PO BID PRN PRN #0 11/17/20 Furosemide [Lasix] 20 mg PO DAILY PRN PRN #30 tablet 11/17/20 Glimepiride [Amaryl] 8 mg PO DAILY #0 11/17/20 Tamsulosin HCl [Flomax] 0.8 mg PO DAILY #60 capsule 11/17/20 Following Prescriptions Were Given to Patient: Tamsulosin HCl [Flomax] 0.8 mg PO DAILY #60 capsule Transmission Status: Received by [id number] Primary Care Physician: Fredy Ribeiro MD [Primary Care Provider] - Please follow up with your Primary Care Physician in: in 1-2 weeks Medical Necessity - Tobacco Use Smoking Status: Former smoker Meaningful Use Info Meaningful Use Diagnoses (Choose all that apply): None applicable Inpatient E&M: 83871 [facility]
[2020-11-17 11:35] LABS: Bedside Glucose 416 mg/dL (70-110)
[2020-11-17] MEDS: ALPRAZolam 0.5 MG Tablet PO (11:46)
[2020-11-17] MEDS: Baclofen 10 MG Tablet PO (11:46)
--- NOTE | 2020-11-17 12:08 | CASEMGMT ---
OSMEL CM in to pt room. Pt agreeable to C with SN, PT and OT. Patient was provided a list of [facility] providers including quality and resource use data and consistent with the patient?s preferred geographic region, medical needs, and insurance network. Pt wishes his dtr to choose the agency to see him. He asks this CM to speak to dtr. TC to pt dtr. She states she will not be in until later today as there was a tragic event in the family. She requests the list provided to her father be given over the phone. Read her the agencies as listed above. She states her first choice would be [facility] and second choice being [facility]. Pt is aware and also agreeable to this. TC to [facility] intake to make referral.
--- NOTE | 2020-11-17 12:47 | CASEMGMT ---
Pt called in to speak with this nurse. She is questioning if pt is to be dc'd today. Made her aware that the pt is dc'd today and that this CM had a lengthy discussion with pt and dtr yesterday regarding dc plan. She states she has not been able to speak to her dtr due to a tragic event in the family. Made aware of the current plan of home with [facility]. She states she does not know if she can manage pt. She asked this CM to go into pt room and ask to call her. Did so at this time.
[2020-11-17 14:39] VITALS: BP 104/59; PULSE 70; RESP 16; TEMP 36.8; O2SAT 92
== END 2020-11-17 16:00 | disposition home health service (06) ==
PROVIDERS: Admitting Provider Family Medicine; PCP Family Medicine; Visit Provider Internal Medicine
DX: R62.7 Adult failure to thrive (principal); I69.354 Hemiplegia and hemiparesis following cerebral infarction affecting left non-dominant side; I11.0 Hypertensive heart disease with heart failure; I25.2 Old myocardial infarction; I48.0 Paroxysmal atrial fibrillation; I50.32 Chronic diastolic (congestive) heart failure; R10.31 Right lower quadrant pain; M25.561 Pain in right knee; F41.9 Anxiety disorder, unspecified; F32.9 Major depressive disorder, single episode, unspecified; I25.10 Atherosclerotic heart disease of native coronary artery without angina pectoris; N35.919 Unspecified urethral stricture, male, unspecified site; N40.0 Benign prostatic hyperplasia without lower urinary tract symptoms; E78.5 Hyperlipidemia, unspecified; R82.90 Unspecified abnormal findings in urine; R33.8 Other retention of urine; E11.51 Type 2 diabetes mellitus with diabetic peripheral angiopathy without gangrene; Z68.22 Body mass index [BMI] 22.0-22.9, adult; Z79.899 Other long term (current) drug therapy; Z79.82 Long term (current) use of aspirin; Z79.02 Long term (current) use of antithrombotics/antiplatelets; Z79.84 Long term (current) use of oral hypoglycemic drugs; Z95.5 Presence of coronary angioplasty implant and graft; Z87.891 Personal history of nicotine dependence
CPT/HCPCS: 36415; 73502; 80048; 82962; 85025; 96360; 96361; 96372; 97110; 97162; 97166; 97530; 97535; 97802; 99218; 99251; J7030; J7120; A4216; G0378; G0379; G0463

== ENCOUNTER 2020-12-30 08:12 | Day surgery (SDC) | payer MEDICARE, SELFPAY ==
[2016-11-23 08:13] VITALS: BMI 24.7
[2020-12-30] VITALS (11 sets, daily range): BP systolic 139–163; BP diastolic 65–80; PULSE 57–90; RESP 16–18; TEMP 36.2–37.2; O2SAT 91–100; BMI 22.2
--- NOTE | 2020-12-30 | PROS_PTH ---
PATIENT: PATIENCE MERRITT Jr. LOC: [facility] U#:[id number] AGE/SX: 80/M ROOM: RE12/30/[address]: Dr. Edwin Garcia MD : [id number] BED: DIS: 12/31/2020 SPEC #: [id number] RECD: 12/30/20 13:37 STATUS: JOHN COTTER #: [id number] ONEL: 12/30/20 00:[address]: Edwin Garcia DEPT: SURGICAL PATHOLOGY RECD BY: Orestes Patino ENTERED: 12/31/20 07:30 SP TYPE: TURP OTHR DR: Dr. Fredy Ribeiro MD Tissues: Prostate, NOS Procedures: Surgery Specimen Level IV HEADER OPERATION: Cysto, TUR prostate, Olymp[employer] PRE-OP DIAGNOSIS: Benign prostate hyperplasia TISSUE SUBMITTED: Prostate tissue MICROSCOPIC DIAGNOSIS Prostate, transurethral resection: Benign nodular hyperplasia, glandular and stromal types. Urothelium with chronic and mild acute inflammation. AM:uriel 01/01/2021 MICROSCOPIC DESCRIPTION Slides are reviewed. GROSS DESCRIPTION Received is one container labeled with the patient's name and designated prostate tissue. The specimen consists of multiple irregular fragments of pink-toribio, rubbery, soft tissue that in aggregate weigh 1 gm and measure in aggregate 2.5 x 1.5 x 0.3 cm. The entire specimen is submitted in one cassette. / SJ:uriel 12/31/20 TC:2 CPT: 92594
[2020-12-30 09:07] LABS: Prothrombin Time (Protime)PT. 12.2 SECONDS (11.7-14.9)
[2020-12-30 09:08] LABS: Partial Thromboplast Time 34.6 Seconds (24.1-36.2)
[2020-12-30 09:13] LABS: AST(SGOT) 14 U/L (15-37); Alanine Aminotransfer ALT/SGPT 25 U/L (16-61); Albumin, Serum 3.7 g/dL (3.2-5.0); Alkaline Phosphatase 126 U/L (45-117); Bilirubin, Direct 0.12 mg/dL (0.00-0.30); Globulin 4.9 g/dL (2.2-4.2); Protein, Total 8.6 g/dL (6.4-8.2)
[2020-12-30 09:18] LABS: Hemoglobin A1c 8.7 % (3.8-5.6)
[2020-12-30] MEDS: Lactated Ringers 1,000 ML 100 ML IV ×2 (09:25→12:56)
[2020-12-30 11:37] LABS: Bedside Glucose 143 mg/dL (70-110)
[2020-12-30] MEDS: Cefazolin 2 GM in 0.9% Normal Saline 100 ML IV (11:50)
[2020-12-30] MEDS: Lubricating Jelly 60 GM Tube 30 GM TOPICAL (12:00)
--- NOTE | 2020-12-30 12:36 | PCM.HP.STD ---
HPI - General HPI Narrative PATIENCE MERRITT, is a 80 M who presents for resection of the prostate for regrowth. [facility] Medical History (Updated 12/30/20 @ 12:[address] Edwin Garcia MD) Anemia Anxiety and depression Bilateral pleural effusion BPH (benign prostatic hypertrophy) CAD (coronary artery disease) Chronic renal failure, stage 2 (mild) CVA (cerebral vascular accident) Emphysema, unspecified Hearing loss, left Hearing loss, right HLD (hyperlipidemia) HTN (hypertension) Incomplete bladder emptying Kidney disease Left hemiplegia Loose, teeth NSTEMI (non-ST elevated myocardial infarction) Occlusion and stenosis of bilateral carotid arteries Osteoarthritis of left hip PAOD (peripheral arterial occlusive disease) PAOD (peripheral arterial occlusive disease) Stroke Subdural hematoma Type 2 diabetes mellitus Wears glasses Home Medications potassium chloride 20 meq PO DAILYCM #30 tab 12/21/16 [Rx Last Taken 11/14/20] amlodipine [Norvasc] 5 mg PO DAILY 05/04/17 [History Last Taken 05/04/17 09:00] aspirin 81 mg tablet,delayed release 81 mg PO QDAY 09/01/17 [History Last Taken 12/22/20] clopidogrel 75 mg tablet 75 mg PO DAILY 09/01/17 [History Last Taken 12/22/20] metoprolol tartrate 50 mg tablet 50 mg PO BID tab 04/10/18 [History Last Taken 12/29/20 18:00] venlafaxine 150 mg PO DAILY 06/13/19 [History Last Taken 11/14/20] baclofen 10 mg PO TID PRN PRN 11/15/20 [History Last Taken 11/14/20] cholecalciferol (vitamin D3) 2,000 unit PO DAILY 11/15/20 [History Last Taken 11/14/20] metformin 500 mg PO BIDCM 11/15/20 [History Last Taken 11/14/20] alprazolam 0.25 mg PO BID PRN PRN #0 11/17/20 [Rx Last Taken 11/14/20] glimepiride 8 mg PO DAILY #0 11/17/20 [Rx Last Taken 11/14/20] Januvia 100 mg PO DAILY 12/23/20 [History Last Taken Unknown] rosuvastatin [Crestor] 40 mg PO QHS 12/23/20 [History Last Taken Unknown] tamsulosin [Flomax] 0.8 mg PO DAILY 12/23/20 [History Last Taken Unknown] cephalexin 500 mg PO TID 12/30/20 [History Last Taken Unknown] ciprofloxacin HCl [Cipro] 500 mg PO BID #14 tab 12/30/20 [Rx Last Taken Unknown] Allergy/AdvReac Type Severity Reaction Status Date / Time procaine [From Novocain] Allergy Unknown Unknown Verified 12/30/20 08:58 fluoxetine [From Prozac] AdvReac Other Verified 12/30/20 08:58 Family History Mother Diabetes Father Kidney disease Surgical History (Updated 12/23/20 @ 10:31 by Daja Terrazas) History of bilateral carotid endarterectomy History of embolic filter insertion History of herniorrhaphy History of total left hip arthroplasty Hx of cardiac cath Presence of stent in coronary artery (~11/22/16) Social History (Updated 04/10/18 @ 15:[address] Ajit Conde MD) Smoking Status: Former smoker alcohol intake: never substance use type: does not use Vital Signs Vital Signs Vital Signs: 12/30/20 09:00 Temperature 97.5 F L Temperature Source Temporal Pulse Rate 57 L Respiratory Rate 16 Blood Pressure 163/80 H Blood Pressure Mean 107 Blood Pressure Source Monitor Blood Pressure Position Semi-Fowlers Blood Pressure Location Right Arm Pulse Ox 100 Oxygen Delivery Method Room Air Physical Exam Const alert and oriented x3 General Appearance: cooperative HEENT normocephalic, head/scalp atraumatic, EAC's normal and TM's normal bilaterally Eyes PERRL and EOMs intact bilaterally Pupil: sluggish Neck no lymphadenopathy, supple and no JVD General: trachea midline Lymph Lymphatic: no lymphadenopathy noted, lymphedema and lymphadenopathy Resp normal respiratory effort, normal air movement and clear to auscultation bilaterally Cardio regular rate, regular rhythm and peripheral pulses 2+ throughout GI soft to palpation, non-tender and non-distended Extremity normal capillary refill and no clubbing, cyanosis or edema General Extremity: no tenderness to palpation of joints or extremities Skin no rashes or lesions noted General Skin Exam: turgor normal Lesions: no lesions Rashes: no rashes Neuro CN's II-XII intact bilaterally Speech: speech normal Motor Exam: strength 5/5 throughout; Negative for general weakness Psych thought process normal, cooperative and affect normal Appearance: appropriate Lab / Micro Data Labs: Laboratory Results - last 24 hr 12/30/20 12/30/20 12/30/20 08:51 08:51 08:51 PT 12.2 INR 1.0 APTT 34.6 Hemoglobin A1c 8.7 H Total Bilirubin 0.30 Direct Bilirubin 0.12 AST 14 L ALT 25 Alkaline Phosphatase 126 H Total Protein 8.6 H Albumin 3.7 Globulin 4.9 H POC Glucose 12/30/20 09:12 PT INR APTT Hemoglobin A1c Total Bilirubin Direct Bilirubin AST ALT Alkaline Phosphatase Total Protein Albumin Globulin POC Glucose 143 H Assessment & Plan Assessment/Plan (1) BPH (benign prostatic hypertrophy): PLAN: Plan to proceed for resection of the prostate for regrowth
--- NOTE | 2020-12-30 12:37 | OP.PCM_ITS ---
Report of Operation Date of Procedure: 12/30/20 Pre-Operative Diagnosis: BPH with regrowth and obstruction Post-Operative Diagnosis: Same Surgery/Procedure Performed:: Transurethral resection of the prostate for regrowth Description of Surgical Findings:: Patient was taken back to the operating room the catheter was removed, he was placed in dorsolithotomy position before anesthesia, he then under went general anesthesia. Went into the bladder with a 24 [place] noncontinuous flow resectoscope. He had significant bilateral obstruction with regrowth of both the right and left side very minimal tissue at the dome of the prostate I then started with the resection resected the right lobe of the prostate resect the left lobe the prostate came down to the apical tissue resected that did a flow test had a wide open flow cauterized the prostate to obtain hemostasis then put a catheter into the bladder all the prostate chips were Ellik out and we put a continuous irrigation of the bladder. Tomorrow we will remove the catheter for voiding trial. Surgeon: Jose Type of Anesthesia: General Drains: 22 [place] three-way Admit VTE Documentation VTE Present on Admission: No VTE Mechan Device Prophylaxis: SCD's
--- NOTE | 2020-12-30 12:39 | PCM.DC ---
Discharge Instructions Diet Discharge Diet: No restrictions Activity Discharge Activity: May not drive while taking narcotic pain medications. (for 3 days.) May shower in (days): 1 Dressing / Incision Call your doctor if your incision/area has: Continuous Slow Oozing, Increased Pain/ Swelling, Increased Redness and Foul Smelling Discharge Call your doctor if you observe: Fever of 101 or Higher, Numbness or Tingling, Shortness of breath, Dizziness, Calf discomfort and Uncontrolled pain Cleanse incision/area with: Keep Dressing Clean & Dry Follow Up Care Please Follow Up With: Edwin Garcia MD When: Call [phone] for an appointment Test Results: Test results from this visit will be discussed in further detail at your follow-up appointment, if applicable. Discharge Plan Admission Primary Reason for Your Visit: Transurethral resection #2, redo Attending Provider: Edwin Garcia Primary Care Provider: Fredy Ribeiro Discharge Orders/Prescriptions Prescriptions: New ciprofloxacin HCl [Cipro] 500 mg tablet 500 mg PO BID Qty: 14 RF: 0 Continued aspirin [Adult Low Dose Aspirin] 81 mg tablet,delayed release (DR/EC) 81 mg PO QDAY RF: 0 potassium chloride 20 MEQ tablet 20 meq PO DAILYCM Qty: 30 RF: 0 amlodipine [Norvasc] 5 MG tablet 5 mg PO DAILY RF: 0 metoprolol tartrate 50 mg tablet 50 mg PO BID RF: 0 venlafaxine 150 MG tablet extended release 24hr 150 mg PO DAILY RF: 0 metformin 500 MG tablet 500 mg PO BIDCM RF: 0 baclofen 10 MG tablet 10 mg PO TID PRN PRN (Reason: muscle spasms) RF: 0 cholecalciferol (vitamin D3) 2,000 UNIT capsule 2,000 unit PO DAILY RF: 0 glimepiride 2 MG tablet 8 mg PO DAILY Qty: 0 RF: 0 alprazolam 0.5 MG tablet 0.25 mg PO BID PRN PRN (Reason: Anxiety) Qty: 0 RF: 0 tamsulosin [Flomax] 0.4 MG capsule 0.8 mg PO DAILY RF: 0 rosuvastatin [Crestor] 40 MG tablet 40 mg PO QHS RF: 0 Januvia 100 mg tablet 100 mg PO DAILY RF: 0 cephalexin 500 mg Capsule 500 mg PO TID RF: 0 Held clopidogrel [Plavix] 75 mg tablet 75 mg PO DAILY RF: 0 Hold Instructions: Resume on 01/04/21. Referrals / Follow Up: Fredy Ribeiro MD [Primary Care Provider] - Edwin Garcia MD [STAFF PHYSICIAN] -
[2020-12-30 12:45] LABS: Bedside Glucose 115 mg/dL (70-110)
[2020-12-30] MEDS: 0.9% Normal Saline 1,000 ML 75 ML IV (15:47)
[2020-12-30] MEDS: metFORMIN HCl 500 MG Tablet PO (17:13)
[2020-12-30] MEDS: Docusate Sodium 100 MG Capsule PO (21:15)
[2020-12-30] MEDS: Metoprolol Tartrate 50 MG Tablet PO (21:15)
[2020-12-30] MEDS: Atorvastatin Calcium 80 MG Tablet PO (21:15)
[2020-12-31 01:47] VITALS: BMI 22.2
[2020-12-31 02:00] VITALS: BP 149/63; PULSE 76; RESP 16; TEMP 36.7; O2SAT 94
[2020-12-31] MEDS: 0.9% Normal Saline 1,000 ML 75 ML IV (05:13)
[2020-12-31 05:47] VITALS: BMI 22.2
[2020-12-31 08:11] VITALS: BP 158/80; PULSE 70; RESP 18; TEMP 36.6; O2SAT 90
[2020-12-31 08:22] VITALS: PULSE 70
[2020-12-31] MEDS: Venlafaxine XR 150 MG Capsule PO (08:22)
[2020-12-31] MEDS: Metoprolol Tartrate 50 MG Tablet PO (08:22)
[2020-12-31] MEDS: amLODIPine 5 MG Tablet PO (08:22)
[2020-12-31] MEDS: Cholecalciferol (VIT D3) 25 MCG TABLET (1,000 UNITS) 50 MCG PO (08:23)
[2020-12-31] MEDS: Aspirin E.C. 81 MG Tablet PO (08:23)
[2020-12-31] MEDS: LINAGLIPTIN 5 MG TABLET PO (08:23)
[2020-12-31] MEDS: Docusate Sodium 100 MG Capsule PO (08:23)
[2020-12-31] MEDS: Potassium Chloride Oral Tablet 20 MEQ PO (08:23)
[2020-12-31] MEDS: metFORMIN HCl 500 MG Tablet PO (08:23)
[2020-12-31] MEDS: Pantoprazole Sodium 40 MG Tablet PO (08:23)
[2020-12-31] MEDS: Glimepiride 4 MG Tablet 8 MG PO (08:23)
[2020-12-31] MEDS: Tamsulosin HCl 0.4 MG Capsule 0.8 MG PO (08:24)
--- NOTE | 2020-12-31 09:57 | PHA.DC.MC ---
Pharmacy Service has performed discharge medication reconciliation and counseling for this patient. The patient was counseled on the following discharge medications and changes in medications for homegoing were reviewed. 1. CIPRO The Reason for Use, instructions for use, and potential side effects were reviewed for all new medications. The patient's questions regarding all of their medications were answered. The patient was able to verbally demonstrate an understanding of their discharge medications. Home Medications potassium chloride 20 meq PO DAILYCM #30 tab 12/21/16 amlodipine [Norvasc] 5 mg PO DAILY 05/04/17 aspirin 81 mg tablet,delayed release 81 mg PO QDAY 09/01/17 clopidogrel 75 mg tablet 75 mg PO DAILY 09/01/17 metoprolol tartrate 50 mg tablet 50 mg PO BID tab 04/10/18 venlafaxine 150 mg PO DAILY 06/13/19 baclofen 10 mg PO TID PRN PRN 11/15/20 cholecalciferol (vitamin D3) 2,000 unit PO DAILY 11/15/20 metformin 500 mg PO BIDCM 11/15/20 alprazolam 0.25 mg PO BID PRN PRN #0 11/17/20 glimepiride 8 mg PO DAILY #0 11/17/20 Januvia 100 mg PO DAILY 12/23/20 rosuvastatin [Crestor] 40 mg PO QHS 12/23/20 tamsulosin [Flomax] 0.8 mg PO DAILY 12/23/20 cephalexin 500 mg PO TID 12/30/20 ciprofloxacin HCl [Cipro] 500 mg PO BID #14 tab 12/30/20 The patient's discharge medication list was reviewed for discrepancies and discrepancies were resolved.
[2020-12-31 10:11] VITALS: BP 178/84; PULSE 65; RESP 18; TEMP 36.4; O2SAT 93
[2020-12-31 13:30] VITALS: BP 143/72; PULSE 68; RESP 18; TEMP 36.9; O2SAT 92
[2020-12-31 13:32] VITALS: BMI 22.2
== END 2020-12-31 14:20 | disposition home or self-care (01) ==
LOC: SDC 08:13 → AC 08:14 → MS3 13:32
PROVIDERS: Anesthesiology; PCP Family Medicine; Referring Provider Urology; Visit Provider Urology
PROC: (CPT 52601; principal; 2020-12-30 10:15)
DX: N40.1 Benign prostatic hyperplasia with lower urinary tract symptoms (principal); N13.9 Obstructive and reflux uropathy, unspecified; I25.10 Atherosclerotic heart disease of native coronary artery without angina pectoris; N18.2 Chronic kidney disease, stage 2 (mild); E78.5 Hyperlipidemia, unspecified; I12.9 Hypertensive chronic kidney disease with stage 1 through stage 4 chronic kidney disease, or unspecified chronic kidney disease; I25.2 Old myocardial infarction; E11.9 Type 2 diabetes mellitus without complications; Z87.891 Personal history of nicotine dependence; F32.9 Major depressive disorder, single episode, unspecified; F41.9 Anxiety disorder, unspecified; Z79.82 Long term (current) use of aspirin; Z79.84 Long term (current) use of oral hypoglycemic drugs; M16.12 Unilateral primary osteoarthritis, left hip; E11.22 Type 2 diabetes mellitus with diabetic chronic kidney disease; E11.51 Type 2 diabetes mellitus with diabetic peripheral angiopathy without gangrene
CPT/HCPCS: 52601; 80076; 82962; 83036; 85610; 85730; 87426; 88305; C9803; J7030; J7120; J2405

== ENCOUNTER 2021-11-20 12:24 | Inpatient (IN) | payer MEDICARE, SELFPAY ==
[2016-11-23 08:13] VITALS: BMI 24.7
[2021-11-20] VITALS (9 sets, daily range): BP systolic 90–123; BP diastolic 49–64; PULSE 75–93; RESP 16–25; TEMP 36.1–36.4; O2SAT 90–94; BMI 22.2; BMI 21.2
--- NOTE | 2021-11-20 12:39 | EKG12_ITS ---
Test Reason : WEAKNESS Blood Pressure : / mmHG Vent. Rate : 080 BPM Atrial Rate : 080 BPM P-R Int : 184 ms QRS Dur : 074 ms QT Int : 376 ms P-R-T Axes : 074 066 088 degrees QTc Int : 433 ms Normal sinus rhythm Septal infarct (cited on or before 13-JUN-2019) Abnormal ECG Confirmed by GERMÁN RODRIGUEZ, JAM ([id number]), photographic editor FAUZIA PIMENTEL ([id number]) on 11/24/2021 11:14:57 AM Referred By: CHRISTIANNE Confirmed By:JAM DUNLAP MD
--- NOTE | 2021-11-20 12:40 | EX.ED.DYSGE1 ---
HPI History of Present Illness Chief Complaint: Weakness Informant: patient and family Narrative Narrative: Patient has had progressive weakness. Has gotten notably worse in the last few days to a week. His health is always been poor. His in August that caused a lot of stress on him. But he seemed to be getting a little bit better. He has now been getting slowly worse. His family has been taking shift staying with him as he lives in his own house and does not want to move. But over the last week he has been having trouble getting out of bed to his wheelchair to transfer. His appetite is gone down. He is urinated on himself several times which is not typical. He has had some slight cough but no sputum production or shortness of breath. No abdominal pain. He does have some right hip pain going on for at least a couple weeks. He feels this is because he uses that right hip to transfer due to left leg weakness from prior stroke. He did not fall or hit it. He has not been having chest pain. His daughter talk to me separately. She states they have been doing a good job of caring for him at home and he was getting better. But she is now very concerned about his safety. She states he is very unstable and weak and they are having a lot of trouble getting him to transfer from bed to wheelchair. She does not feel that they can care for him safely at home now. [facility] Medical History (Updated 11/20/21 @ 14:[address] George Johnson MD) Anemia Anxiety and depression Bilateral pleural effusion BPH (benign prostatic hypertrophy) CAD (coronary artery disease) Chronic renal failure, stage 2 (mild) CVA (cerebral vascular accident) Emphysema, unspecified Hearing loss, left Hearing loss, right HLD (hyperlipidemia) HTN (hypertension) Incomplete bladder emptying Kidney disease Left hemiplegia Loose, teeth NSTEMI (non-ST elevated myocardial infarction) Occlusion and stenosis of bilateral carotid arteries Osteoarthritis of left hip PAOD (peripheral arterial occlusive disease) PAOD (peripheral arterial occlusive disease) Stroke Subdural hematoma Type 2 diabetes mellitus Wears glasses Home Medications potassium chloride 20 meq PO DAILYCM #30 tab 12/21/16 [Rx Last Taken 11/14/20] amlodipine [Norvasc] 5 mg PO DAILY 05/04/17 [History Last Taken 05/04/17 09:00] aspirin 81 mg tablet,delayed release 81 mg PO QDAY 01/19/18 [History Last Taken 12/22/20] clopidogrel 75 mg tablet 75 mg PO DAILY 09/01/17 [History Last Taken 12/22/20] metoprolol tartrate 50 mg tablet 50 mg PO BID tab 04/10/18 [History Last Taken 12/29/20 18:00] venlafaxine 150 mg PO DAILY 06/13/19 [History Last Taken 11/14/20] baclofen 10 mg PO TID PRN PRN 11/15/20 [History Last Taken 11/14/20] cholecalciferol (vitamin D3) 2,000 unit PO DAILY 11/15/20 [History Last Taken 11/14/20] metformin 500 mg PO BIDCM 11/15/20 [History Last Taken 11/14/20] alprazolam 0.25 mg PO BID PRN PRN #0 11/17/20 [Rx Last Taken 11/14/20] glimepiride 8 mg PO DAILY #0 11/17/20 [Rx Last Taken 11/14/20] Januvia 100 mg PO DAILY 12/23/20 [History Last Taken Unknown] rosuvastatin [Crestor] 40 mg PO QHS 12/23/20 [History Last Taken Unknown] tamsulosin [Flomax] 0.8 mg PO DAILY 12/23/20 [History Last Taken Unknown] cephalexin 500 mg PO TID 12/30/20 [History Last Taken Unknown] ciprofloxacin HCl [Cipro] 500 mg PO BID #14 tab 12/30/20 [Rx Last Taken Unknown] Allergy/AdvReac Type Severity Reaction Status Date / Time procaine [From Novocain] Allergy Unknown Unknown Verified 11/20/21 12:25 fluoxetine [From Prozac] AdvReac Other Verified 11/20/21 12:25 Family History Mother Diabetes Father Kidney disease Surgical History History of bilateral carotid endarterectomy History of embolic filter insertion History of herniorrhaphy History of total left hip arthroplasty Hx of cardiac cath Presence of stent in coronary artery (~11/22/16) Social History Smoking Status: Former smoker alcohol intake: never substance use type: does not use ROS ROS ED Constitutional Constitutional ED: Denies chills or fever(s) Eyes Eyes: Denies change in vision ENT ENT ED: Denies rhinorrhea Cardiovascular Cardiovascular: Denies chest pain Respiratory/Chest Respiratory/Chest: Reports cough; Denies dyspnea or sputum Gastrointestinal Gastrointestinal: Reports other Details: Appetite has been down but no pain nausea vomiting diarrhea or blood in the stool. ; Denies abdominal pain, diarrhea, melena, nausea or vomiting Genitourinary Genitourinary ED: Reports urinary frequency and other Details: He has had urinary incontinence with frequent urination and a bad odor just in the last 2 or 3 days. ; Denies dysuria Musculoskeletal Musculoskeletal: Denies back pain Integumentary Denies rash Neurologic Neurologic: Denies headache(s) Psychiatric Psychiatric: Reports depression Endocrine Endocrinology: Denies polydipsia or polyuria Allergic/Immunologic Allergic/Immunologic ED: Denies urticaria EXAM Physical Exam Const Vital Signs: 11/20/21 12:26 11/20/21 12:52 11/20/21 12:53 Temperature 97.5 F L 97.4 F L Temperature Source Temporal Temporal Pulse Rate 86 89 Respiratory Rate 17 24 H Respiratory Effort Normal Respiratory Pattern Normal Blood Pressure 90/56 L 123/64 H Blood Pressure Mean 67 83 Pulse Ox 92 94 Oxygen Delivery Method Room Air Room Air 11/20/21 14:27 Temperature 97.5 F L Temperature Source Temporal Pulse Rate 75 Respiratory Rate 23 H Respiratory Effort Respiratory Pattern Blood Pressure 102/58 L Blood Pressure Mean 72 Pulse Ox 93 Oxygen Delivery Method Room Air Positive well nourished and well developed General Appearance ED: well developed; Negative for cyanotic or diaphoretic HEENT Reports dry mucous membranes Mouth ED: Yes dry mucous membranes Mouth: dry mucous membranes Eyes General Eye ED: Negative for pale conjunctiva or scleral icterus Neck no JVD Resp normal respiratory effort Resp Narrative: Respiratory effort seems good. He did have a few crackles toward his left base but these cleared after several deep breaths. No hypoxia as his oxygen level is about 92 to 3% on room air. No pain with a deep breath. Cardio regular rate and regular rhythm GI normal to inspection, nondistended, normoactive bowel sounds, non-tender and non-distended Palpation: soft Back/Spine no CVA tenderness Extremity General Extremety ED: Negative for edema or tenderness General Extremity: Negative for edema Neuro oriented x3 Sensorium / Orientation: alert Psych mental status grossly normal Skin no rashes or lesions noted MDM MDM MDM Narrative Medical decision making narrative: Patient's labs show multiple abnormalities. He does have a very high white count. This is likely due to infection in his case. His electrolytes show an acute kidney injury with creatinine that has doubled to about 2.52. His lactate is elevated 2.7. Urine is cloudy leukocyte esterase nitrites. I am waiting on the white blood cell count but it would likely be elevated from the appearance of the urine. I think this patient has an acute worsening and weakness due to a UTI. He does show signs of sepsis. He has been given IV fluids and antibiotics. We will give slightly more IV fluids to get him up to 30 cc/kg. X-rays of his pelvis showed no acute process. I did talk with the patient that his illness would recommend inpatient treatment. Combination of his symptoms and findings would not likely do well at home. I have hospitalist on page at this time. Lab Data Attestation: I reviewed the patient's lab results. Labs: Laboratory Results - last 24 hr 11/20/21 11/20/21 11/20/21 12:45 12:45 12:45 WBC 18.6 H RBC 4.87 Hgb 14.4 Hct 43.6 MCV 89.5 MCH 29.6 MCHC 33.0 RDW Std Deviation 44.2 H RDW Coeff of Jeff 13.4 Plt Count 157 MPV 10.5 Immature Gran % (Auto) 1.500 H Neut % (Auto) 79.1 H Lymph % (Auto) 10.1 L Mobile % (Auto) 9.0 Eos % (Auto) 0.1 Baso % (Auto) 0.2 Absolute Neuts (auto) 14.7 H Absolute Lymphs (auto) 1.87 Nucleated RBC % 0 Differential Comment SCANNED Diff Path Review May foll Sodium 135 L Potassium 4.1 Chloride 100 Carbon Dioxide 27.0 Anion Gap 8 BUN 41 H Creatinine 2.52 H Estim Creat Clear Calc 24.19 Est GFR (MDRD) Af Amer 32 L Est GFR (MDRD) Non-Af 26 L BUN/Creatinine Ratio 16.3 Glucose 167 H Lactic Acid 2.7 H* Calcium 9.6 Total Bilirubin 0.60 AST 10 L ALT 15 L Alkaline Phosphatase 103 Troponin I High Sens 4 Total Protein 8.3 H Albumin 3.7 Globulin 4.6 H Albumin/Globulin Ratio 0.8 L Urine Color Urine Clarity Urine pH Ur Specific [place] Urine Protein Urine Glucose (UA) Urine Ketones Urine Occult Blood Urine Nitrite Urine Bilirubin Urine Urobilinogen Ur Leukocyte Esterase 11/20/21 Unknown WBC RBC Hgb Hct MCV MCH MCHC RDW Std Deviation RDW Coeff of Jeff Plt Count MPV Immature Gran % (Auto) Neut % (Auto) Lymph % (Auto) Mobile % (Auto) Eos % (Auto) Baso % (Auto) Absolute Neuts (auto) Absolute Lymphs (auto) Nucleated RBC % Differential Comment Diff Path Review Sodium Potassium Chloride Carbon Dioxide Anion Gap BUN Creatinine Estim Creat Clear Calc Est GFR (MDRD) Af Amer Est GFR (MDRD) Non-Af BUN/Creatinine Ratio Glucose Lactic Acid Calcium Total Bilirubin AST ALT Alkaline Phosphatase Troponin I High Sens Total Protein Albumin Globulin Albumin/Globulin Ratio Urine Color Yellow Urine Clarity Cloudy Urine pH 6.0 Ur Specific [place] 1.015 Urine Protein 100 H Urine Glucose (UA) Normal Urine Ketones Negative Urine Occult Blood 250 H Urine Nitrite Positive H Urine Bilirubin Negative Urine Urobilinogen 1 H Ur Leukocyte Esterase 500 H Radiography Diagnostic Testing: Clinical Impression(s) from Imaging Studies Hip/Pelvis X-Ray 11/20/21 13:05 IMPRESSION: 1. No acute findings in the pelvis or right hip. 2. No interval change when compared to 11/15/2020. Electronically Signed: Mark Mcclain MD at 13:42 EDT Reading Location ID and State: [facility] / [place] , Service support , Discharge Plan Dx/Rx/DC Orders Clinical Impression: Sepsis, Acute UTI, Lactic acidosis, Acute kidney injury Disposition Disposition: [facility] ([facility]3] Care [facility]
[2021-11-20 13:00] LABS: Absolute Lymphocyte Count 1.87 X10^3/uL (0.83-4.51); Absolute Neutrophil Count 14.7 X10^3/uL (2.0-7.7); Basophil# 0.04 X10^3/uL; Basophil% 0.2 % (0-1); Eosinophil# 0.02 X10^3/uL; Eosinophils% 0.1 % (0-5); Hematocrit 43.6 % (40-54); Hemoglobin 14.4 g/dL (13.0-16.5); Lymphocyte # 1.87 X10^3/ul (0.83-4.51); Lymphocyte % 10.1 % (19-41); Mean Corpuscular Hgb 29.6 pg (27.0-32.0); Mean Corpuscular Volume 89.5 fL (80-94); Mean Platelet Vol. 10.5 fl (6.2-12.0); Monocyte# 1.68 X10^3/uL; NRBC Flagged by Analyzer 0 % (0-5); Neutrophil # 14.71 X10^3/uL (2.7-7.7); Neutrophil % 79.1 % (47-70); POSITIVE DIFFERENTIAL YES; Platelet Count 157 K/mm3 (150-450); RBC Distribution Width CV 13.4 % (11.6-14.6); RBC Distribution Width SD 44.2 fl (35.1-43.9); Red Blood Count 4.87 M/mm3 (4.6-6.2); White Blood Count 18.6 K/mm3 (4.4-11.0)
[2021-11-20] MEDS: 0.9% Normal Saline 1,000 ML 1000 ML IV (13:00)
[2021-11-20 13:04] LABS: Differential Indicated SCAN CRITERIA MET
--- NOTE | 2021-11-20 13:05 | RAD_ITS ---
EXAM: XR RIGHT HIP WITH PELVIS WHEN PERFORMED, 2 OR 3 VIEWS CLINICAL INDICATION: pain TECHNIQUE: Two or three views of the right hip with pelvis when performed. This report was created using eyetok report generation technology. COMPARISON: 11/15/2020. FINDINGS: BONES/JOINTS: Intact left metallic hip arthroplasty. No suspicious acute fracture in the pelvis and right hip. No destructive or sclerotic lesions. Note that overlapping bowel shadows may however obscure fine detail. Sacroiliac joint is unremarkable. No widening of the pubic symphysis. SOFT TISSUES: Unremarkable. No soft tissue swelling or gas. RAD/HIP, UNI W/ Pelvis 2-3 Views IMPRESSION: 1. No acute findings in the pelvis or right hip. 2. No interval change when compared to 11/15/2020. Electronically Signed: Mark Mcclain MD at 13:42 EDT ,
--- NOTE | 2021-11-20 13:05 | RAD_ITS ---
HISTORY: cough. TECHNIQUE: XR Chest 1 View. # of images incl. paperwork: 1. COMPARISON: 06/17/2019. FINDINGS: CARDIOMEDIASTINAL STRUCTURES: Cardiac silhouette not enlarged. Mediastinal contour unremarkable with calcification of the aorta. Surgical clips in the left neck. LUNGS: Mild linear opacities in the lung bases. 4-57 m opacity in the right lower lung laterally PLEURA: Chronic blunting of the right costophrenic angle. OSSEOUS STRUCTURES: Multiple chronic left rib fractures RAD/Chest 1 View (Portable) IMPRESSION: Focal opacity in the right lower lateral lung, possible mass or focal pneumonia. Recommend CT. at 1434 Reported and signed by: Raven Skinner MD Electronically Signed: Raven Skinner MD at 14:33 EDT ,
[2021-11-20 13:26] LABS: ALB/GLOB Ratio 0.8 RATIO (0.9-2.4); AST(SGOT) 10 U/L (15-37); Alanine Aminotransfer ALT/SGPT 15 U/L (16-61); Albumin, Serum 3.7 g/dL (3.2-5.0); Alkaline Phosphatase 103 U/L (45-117); Anion Gap 8 (5-15); BUN 41 mg/dL (7-18); BUN/Creat Ratio 16.3 RATIO (10-20); Calcium,Total 9.6 mg/dL (8.5-10.1); Chloride 100 mmol/L (98-107); Creatinine, Serum 2.52 mg/dL (0.70-1.30); EST Glomerular Filtration Rate 26 mL/min (>60); Est Glom Filt Rate - Afr Amer 32 mL/min (>60); Estimated Creatinine Clearance 24.19 ml/min; Globulin 4.6 g/dL (2.2-4.2); Glucose 167 mg/dL (74-106); Potassium 4.1 mmol/L (3.5-5.1); Protein, Total 8.3 g/dL (6.4-8.2); Sodium Level 135 mmol/L (136-145); Troponin-I HS 4 pg/mL (3.0-78.0)
[2021-11-20 13:33] LABS: Lactic Acid 2.7 mmol/L (0.4-1.9)
[2021-11-20 13:35] LABS: Differential Comment SCANNED
[2021-11-20] MEDS: Acetaminophen 325 MG Tablet 650 MG PO (13:41)
[2021-11-20 13:58] LABS: Mucous, Urine 0 SEEN /hpf (<or=2+); Squamous Epithelial Cells - UA 0 SEEN /hpf (0-5)
[2021-11-20 14:17] LABS: Color, Urine Yellow (Yellow); Glucose, Dipstick Normal (Normal); Ketone-Dipstick Negative (Negative); Leukocyte Esterase-Dipstick 500 /ul (Negative); Nitrite-Dipstick Positive (Negative); Occult Blood-Urine 250 /ul (Negative); Protein-Dipstick 100 mg/dl (Negative); Specific Gravity, Urine 1.015 (1.002-1.030); Urine Bilirubin Dipstick Negative (Negative); Urine Clarity Cloudy (Clear); Urine Urobilinogen 1 mg/dl (Normal)
[2021-11-20] MEDS: 0.9% Normal Saline 1,000 ML 999 ML IV (14:24)
[2021-11-20] MEDS: Ceftriaxone 1 GM/50 ML BAG IV (14:24)
[2021-11-20 14:40] LABS: Bacteria 2+ /hpf (None Seen); Red Blood Cells-Urine 10-25 SEEN /hpf (0-5); White Blood Cells >100 SEEN /hpf (0-5)
--- NOTE | 2021-11-20 15:15 | HP.PCM.HOS_ITS ---
[facility] - General General Date of Admission: 11/20/21 HPI Narrative PATIENCE MERRITT, is a 81 M with an extensive past medical history as outlined who presents at the ED on 11/20/2021 with a complaint of generalized weakness as well as offensive smelling urine. Patient's in August 2021 and according to his family, he has pretty much gone downhill since then. 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 Daughter states patient has been getting weaker and is now barely able to transfer himself from his bed to his chair or commode. His 3 daughters have been taking turns to provide him with round-the- clock help but according to his daughter who asked to speak to me privately outside, he has been getting much more weak and debilitated. He denied any fever, any chills, any nausea, any vomiting or diarrhea. Daughter says she had noticed that his urine was offensive smell and he had not been eating or drinking well. He denied any cough, chest pain, palpitations, dizziness or any other symptoms. Review of systems is otherwise negative. On review, vitals in the ED were blood pressure of 99/57 with pulse rate of 76, respiratory rate of 21 and temperature of 97.6 Fahrenheit. He was saturating at 94% on room air. CBC showed WBC of 18.6 with hemoglobin of 14.4 and platelets of 157. Chemistry showed sodium of 135 with bicarb of 27 and creatinine of 2.52. Lactic acid was 2.7. Urinalysis showed 2+ bacteria and positive nitrites. Chest x-ray showed focal opacity in the right lower lateral lung, possibly a mass of focal pneumonia and recommended CT for correlation x-ray of the right hip showed no acute findings. He is being admitted to be managed for debility and UTI as well as probable community acquired pneumonia. . [facility], LATER [facility] Medical History (Updated 11/20/21 @ 14:[address] George Johnson MD) Anemia Anxiety and depression Bilateral pleural effusion BPH (benign prostatic hypertrophy) CAD (coronary artery disease) Chronic renal failure, stage 2 (mild) CVA (cerebral vascular accident) Emphysema, unspecified Hearing loss, left Hearing loss, right HLD (hyperlipidemia) HTN (hypertension) Incomplete bladder emptying Kidney disease Left hemiplegia Loose, teeth NSTEMI (non-ST elevated myocardial infarction) Occlusion and stenosis of bilateral carotid arteries Osteoarthritis of left hip PAOD (peripheral arterial occlusive disease) PAOD (peripheral arterial occlusive disease) Stroke Subdural hematoma Type 2 diabetes mellitus Wears glasses Home Medications potassium chloride 20 meq PO DAILYCM #30 tab 12/21/16 [Rx Last Taken 11/14/20] amlodipine [Norvasc] 5 mg PO DAILY 05/04/17 [History Last Taken 05/04/17 09:00] aspirin 81 mg tablet,delayed release 81 mg PO QDAY 09/01/17 [History Last Taken 12/22/20] clopidogrel 75 mg tablet 75 mg PO DAILY 09/01/17 [History Last Taken 12/22/20] metoprolol tartrate 50 mg tablet 50 mg PO BID tab 04/10/18 [History Last Taken 12/29/20 18:00] venlafaxine 150 mg PO DAILY 06/13/19 [History Last Taken 11/14/20] baclofen 10 mg PO TID PRN PRN 11/15/20 [History Last Taken 11/14/20] cholecalciferol (vitamin D3) 2,000 unit PO DAILY 11/15/20 [History Last Taken 11/14/20] metformin 500 mg PO BIDCM 11/15/20 [History Last Taken 11/14/20] glimepiride 8 mg PO DAILY #0 11/17/20 [Rx Last Taken 11/14/20] Januvia 100 mg PO DAILY 12/23/20 [History Last Taken Unknown] rosuvastatin [Crestor] 40 mg PO QHS 12/23/20 [History Last Taken Unknown] tamsulosin [Flomax] 0.4 mg PO DAILY 12/23/20 [History Last Taken Unknown] alprazolam 0.5 mg PO TID 11/20/21 [History Last Taken Unknown] celecoxib 200 mg PO/SL BID 11/20/21 [History Last Taken Unknown] Allergy/AdvReac Type Severity Reaction Status Date / Time procaine [From Novocain] Allergy Unknown Unknown Verified 11/20/21 12:25 fluoxetine [From Prozac] AdvReac Other Verified 11/20/21 12:25 Family History Mother Diabetes Father Kidney disease Surgical History History of bilateral carotid endarterectomy History of embolic filter insertion History of herniorrhaphy History of total left hip arthroplasty Hx of cardiac cath Presence of stent in coronary artery (~11/22/16) Social History Smoking Status: Former smoker alcohol intake: never substance use type: does not use ROS Constitutional Constitutional: Reports fatigue, malaise and weakness; Denies anorexia, chills or fever(s) Eyes Eyes: Denies change in vision ENT HEENT: Denies dysphagia, headache(s) or sore throat Cardiovascular Cardiovascular: Denies chest pain, dyspnea on exertion, lightheadedness, orthopnea or palpitations Respiratory/Chest Respiratory/Chest: Denies cough, dyspnea, productive cough, shortness of breath at rest or shortness of breath with exertion Gastrointestinal Gastrointestinal: Denies abdominal pain, constipation, diarrhea, dyspepsia, hematemesis, nausea or vomiting Genitourinary Genitourinary: Denies burning urination or dysuria Musculoskeletal Musculoskeletal: Denies joint stiffness Neurologic Neurologic: Denies confusion, dizziness, focal weakness, headache(s), numbness or syncope Psychiatric Psychiatric: Denies anxiety or depression Endocrine Endocrinology: Denies change in body appearance or excessive sweating Hematologic/Lymphatic Hematologic/Lymphatic: Denies anemia or easy bruising Allergic/Immunologic Allergic/Immunologic: Denies asthma Vital Signs Vital Signs Vital Signs: 11/20/21 12:26 11/20/21 12:52 11/20/21 12:53 Temperature 97.5 F L 97.4 F L Temperature Source Temporal Temporal Pulse Rate 86 89 Respiratory Rate 17 24 H Respiratory Effort Normal Respiratory Pattern Normal Blood Pressure 90/56 L 123/64 H Blood Pressure Mean 67 83 Pulse Ox 92 94 Oxygen Delivery Method Room Air Room Air 11/20/21 14:27 11/20/21 15:11 Temperature 97.5 F L 97.6 F L Temperature Source Temporal Temporal Pulse Rate 75 76 Respiratory Rate 23 H 21 H Respiratory Effort Respiratory Pattern Blood Pressure 102/58 L 99/57 L Blood Pressure Mean 72 71 Pulse Ox 93 94 Oxygen Delivery Method Room Air Room Air Weight Weight: 164 lb Body Mass Index (BMI) 22.2 Physical Exam Const alert HEENT normocephalic, head/scalp atraumatic and hearing grossly normal bilaterally Mouth: moist mucous membranes abnormal Eyes PERRL and EOMs intact bilaterally Neck no lymphadenopathy Resp Resp Narrative: mildly diminished breath sounds bibasally, no wheezes or crackles. On room air. Cardio regular rate, regular rhythm, S1 normal heart sound, S2 normal heart sound and no murmurs GI normal to inspection, nondistended, normoactive bowel sounds, soft to palpation and non-tender Extremity normal to inspection Peripheral Pulses: Yes pulses 2+ throughout Skin no rashes or lesions noted Neuro oriented x3 and CN's II-XII intact bilaterally Neuro Narrative: has chronic left sided hemiplegia from previous stroke Sensorium / Orientation: awake and alert Psych affect normal Results Lab / Micro Data Result Diagrams: 11/20/21 12:45 11/20/21 12:45 Labs: Laboratory Results - last 24 hr 11/20/21 12:45: WBC 18.6 H, RBC 4.87, Hgb 14.4, Hct 43.6, MCV 89.5, MCH 29.6, MCHC 33.0, RDW Std Deviation 44.2 H, RDW Coeff of Jeff 13.4, Plt Count 157, MPV 10.5, Immature Gran % (Auto) 1.500 H, Neut % (Auto) 79.1 H, Lymph % (Auto) 10.1 L, [place] % (Auto) 9.0, Eos % (Auto) 0.1, Baso % (Auto) 0.2, Absolute Neuts (auto) 14.7 H, Absolute Lymphs (auto) 1.87, Nucleated RBC % 0, Differential Comment SCANNED, Diff Path Review December foll 11/20/21 12:45: Sodium 135 L, Potassium 4.1, Chloride 100, Carbon Dioxide 27.0, Anion Gap 8, BUN 41 H, Creatinine 2.52 H, Estim Creat Clear Calc 24.19, Est GFR (MDRD) Af Amer 32 L, Est GFR (MDRD) Non-Af 26 L, BUN/Creatinine Ratio 16.3, Glucose 167 H, Calcium 9.6, Total Bilirubin 0.60, AST 10 L, ALT 15 L, Alkaline Phosphatase 103, Troponin I High Sens 4, Total Protein 8.3 H, Albumin 3.7, Globu beatriz 4.6 H, Albumin/Globulin Ratio 0.8 L 11/20/21 12:45: Lactic Acid 2.7 H* 04/09/22 : Urine Color Yellow, Urine Clarity Cloudy, Urine pH 6.0, Ur Specific [place] 1.015, Urine Protein 100 H, Urine Glucose (UA) Normal, Urine Ketones Negative, Urine Occult Blood 250 H, Urine Nitrite Positive H, Urine Bilirubin Negative, Urine Urobilinogen 1 H, Ur Leukocyte Esterase 500 H, Urine RBC 10-25 SEEN, Urine WBC >100 SEEN, Ur Squamous Epith Cells 0 SEEN, Urine Bacteria 2+, Urine Mucus 0 SEEN Radiology Impression Chest X-Ray 11/20/21 13:05 IMPRESSION: Focal opacity in the right lower lateral lung, possible mass or focal pneumonia. Recommend CT. at 1434 Reported and signed by: Raven Skinner MD Electronically Signed: Raven Skinner MD at 14:33 EDT Reading Location ID and State: [facility] / [place] Tel , Service support , Hip/Pelvis X-Ray 11/20/21 13:05 IMPRESSION: 1. No acute findings in the pelvis or right hip. 2. No interval change when compared to 11/15/2020. Electronically Signed: Mark Mcclain MD at 13:42 EDT , Assessment & Plan Assessment/Plan (1) Acute UTI: (2) Lactic acidosis: (3) Acute kidney injury: PLAN: #UTI * admit to med surg o/a of patient' BP that is running low in the 90s and elevated lactic acid * He meets SIRS criteria with tachypnea and leucocytosis but no evidence of end organ damage * lactic acid elevated at 2.5 * Urinalysis showed evidence of UTI * urine and blood cultures ordered * hydrate with IV normal saline 150cc/hr * started on IV ceftriaxone. Will continue * hold BP meds #Hypotension * likely due to UTI. Responds to fluids * hydrate as above * hold BP meds * #Lactic acidosis: likely due to dehydration and decreased intake. Should improve with IVF administration #AKIi * CR is 2.52, with a baseline of ~ 1.7 * likely prerenal due to decreased intake * Hydrate gently with IV fluids and trend. If creatinine does not trend downwards, will work-up extensively. * #Debility with failure to thrive * Patient has been deteriorating since his in August 2021. * His 3 daughters have been working [id number] to provide him with 24-hour care. However daughter says has been getting weaker and they think that he will benefit from placement. * PT OT on board. Fall precautions * consult case management to assist with placement. * #Hypertension: Hold BP meds on account of low blood pressure #History of CVA with residual left-sided hemiplegia * On aspirin and Plavix as well as high intensity statin * On baclofen to help with spasticity. * Consult PT OT. Fall precautions. * #Type 2 diabetes mellitus: Hold Metformin. On Januvia. Insulin sliding scale. Accu-Cheks AC at bedtime. #BPH: On Flomax DVT prophylaxis: Lovenox renally dosed CODE STATUS: DNR CCA no intubation * Patient counseled extensively about different types of CODE STATUS including full code, DNR CCA and DNR CCA. Patient elects to be DNRCCA no intubation. * Total [id number]-[id number] time 18 minutes. Charges/Coding Visit Charges Inpatient E&M: 83325 Init Hosp L3 Procedures Hospitalists Procedures: 47974 Advncd Care Plan 30 Min
--- NOTE | 2021-11-20 15:18 | CT_ITS ---
STUDY: CT CHEST WITHOUT CONTRAST REASON FOR EXAM: Male, 81 years old. lung infiltrate/mass RADIATION DOSAGE (If Supplied By Facility): CTDIvol = ( 11.19 ) mGy, DLP = ( 388.54 ) mGycm TECHNIQUE: Transaxial imaging was performed without the administration of intravenous contrast material. Multiplanar coronal and sagittal images were reformatted. Individualized dose optimization techniques were used for this CT. COMPARISON: Chest x-ray earlier today. FINDINGS: Centrilobular emphysema predominantly in the upper lobes. Linear dominant densities in the bilateral lung bases including subpleural atelectasis along the lateral right lower lobe, correlating to previous x-ray findings. No airspace consolidation. There is pleural fibrotic thickening of the pulmonary lung apices. Normal heart and pericardium. Coronary artery stents and calcifications. Normal mediastinum. Normal hilar regions. Normal unenhanced pulmonary arteries. Normal aorta arch and descending thoracic aorta. There are multi-level degenerative changes of the thoracic spine. Atrophy of the right kidney partially visualized. Intramuscular lipoma in the right shoulder, no clinical significance. Surgical clips in the lower left neck. CT/Chest without Contrast IMPRESSION: No airspace consolidation. Bibasilar atelectasis and/or scarring. Electronically Signed: Bowen Dawson MD (Brooks) at 16:55 EDT Reading Location ID and State: [facility] / [place] , Service support ,
[2021-11-20 16:49] LABS: Reflex Lactate? Y
[2021-11-20] MEDS: 0.9% Normal Saline 1,000 ML 150 ML IV ×2 (17:24→23:33)
[2021-11-20 17:51] LABS: Bedside Glucose 121 mg/dL (74-106)
[2021-11-20 18:27] LABS: Lactic Acid 1.3 mmol/L (0.4-1.9)
[2021-11-20] MEDS: Celecoxib 200 MG Capsule PO (21:10)
[2021-11-20] MEDS: Atorvastatin Calcium 80 MG Tablet PO (21:10)
[2021-11-20] MEDS: Insulin Lispro 100 UNIT/ML INSULN.PEN SC (21:15)
[2021-11-20 21:26] LABS: Bedside Glucose 169 mg/dL (74-106)
[2021-11-21] VITALS (9 sets, daily range): BP systolic 104–139; BP diastolic 58–83; PULSE 76–108; RESP 16–18; TEMP 35.8–36.7; O2SAT 92–94
[2021-11-21] MEDS: Acetaminophen 325 MG Tablet 650 MG PO ×2 (05:18→21:15)
[2021-11-21 06:00] LABS: Absolute Lymphocyte Count 1.16 X10^3/uL (0.83-4.51); Absolute Neutrophil Count 9.1 X10^3/uL (2.0-7.7); Basophil# 0.03 X10^3/uL; Basophil% 0.3 % (0-1); Eosinophil# 0.11 X10^3/uL; Eosinophils% 0.9 % (0-5); Hematocrit 35.5 % (40-54); Hemoglobin 11.5 g/dL (13.0-16.5); Lymphocyte # 1.16 X10^3/ul (0.83-4.51); Lymphocyte % 9.9 % (19-41); Mean Corp Hgb Conc 32.4 g/dL (32-36); Mean Corpuscular Hgb 29.4 pg (27.0-32.0); Mean Corpuscular Volume 90.8 fL (80-94); Mean Platelet Vol. 10.6 fl (6.2-12.0); Monocyte# 1.21 X10^3/uL; Monocyte% 10.3 % (0-10); NRBC Flagged by Analyzer 0 % (0-5); Neutrophil # 9.06 X10^3/uL (2.7-7.7); Neutrophil % 77.2 % (47-70); Platelet Count 118 K/mm3 (150-450); RBC Distribution Width CV 13.4 % (11.6-14.6); RBC Distribution Width SD 44.8 fl (35.1-43.9); Red Blood Count 3.91 M/mm3 (4.6-6.2); White Blood Count 11.7 K/mm3 (4.4-11.0)
[2021-11-21 06:34] LABS: Anion Gap 7 (5-15); BUN 32 mg/dL (7-18); BUN/Creat Ratio 16.8 RATIO (10-20); Chloride 111 mmol/L (98-107); EST Glomerular Filtration Rate 36 mL/min (>60); Est Glom Filt Rate - Afr Amer 44 mL/min (>60); Estimated Creatinine Clearance 30.62 ml/min; Glucose 60 mg/dL (74-106); Potassium 3.5 mmol/L (3.5-5.1); Sodium Level 140 mmol/L (136-145)
[2021-11-21 06:36] LABS: Bedside Glucose 66 mg/dL (74-106)
[2021-11-21 07:06] LABS: Bedside Glucose 53 mg/dL (74-106)
[2021-11-21 07:25] LABS: Bedside Glucose 83 mg/dL (74-106)
[2021-11-21] MEDS: Potassium Chloride Oral Tablet 20 MEQ PO (08:33)
[2021-11-21] MEDS: Aspirin E.C. 81 MG Tablet PO (08:35)
[2021-11-21] MEDS: Tamsulosin HCl 0.4 MG Capsule PO (08:35)
[2021-11-21] MEDS: Celecoxib 200 MG Capsule PO ×2 (08:35→21:10)
[2021-11-21] MEDS: Venlafaxine XR 150 MG Capsule PO (08:35)
[2021-11-21] MEDS: Clopidogrel Bisulfate 75 MG Tablet PO (08:36)
[2021-11-21] MEDS: amLODIPine 5 MG Tablet PO (08:36)
[2021-11-21] MEDS: Cholecalciferol (VIT D3) 25 MCG TABLET (1,000 UNITS) 50 MCG PO (08:36)
[2021-11-21] MEDS: Enoxaparin 40 MG/0.4 ML Syringe 30 MG SC (08:42)
[2021-11-21] MEDS: Ceftriaxone 1 GM/50 ML BAG IV (08:48)
--- NOTE | 2021-11-21 10:40 | NURSING ---
Patient's daughter/GLORIA Garcia at bedside and updated. Patient yelling at his daughter and this nurse, stating he wants to go home and wants to sign out AMA. Daughter states the patient is not safe at home and should not return home at this time. This nurse told the patient he has a UTI and is currently receiving IV antibiotics for his infection. The patient stated I will stay one more day. Then he asked his daughter 'Why did you cancel my appointment? His daughter asked which appointment and he stated The one that was supposed to be on December 15. The patient was reminded that it is November 21 and his appointment is next month. Daughter stated that she was going home for the day because the patient was being mean to her. She was informed that if anything changes she will be notified. Patient continues to have intermittent confusion, requiring being re-oriented. Dr. Olson updated.
[2021-11-21] MEDS: Insulin Lispro 100 UNIT/ML INSULN.PEN SC ×2 (11:20→16:48)
--- NOTE | 2021-11-21 11:21 | PN.HOSP_ITS ---
Subjective Subjective Patient seen and examined.. He had an uneventful night and had no complaints this morning. I was subsequently informed by his nurse that patient was screaming at his daughter and threatening to sign out AMA tomorrow. he as remained hemodynamically stable. Objective Data Objective Data Vital Signs: Vital Signs Temp Pulse Resp BP Pulse Ox 97.9 F 76 16 106/58 L 92 11/21/21 08:45 11/21/21 08:45 11/21/21 08:45 11/21/21 08:45 11/21/21 08:45 Oxygen Flow Rate (L/min) 2 Oxygen Delivery Method Room Air Weight: 156 lb 8.451 oz Body Mass Index (BMI) 21.2 Intake & Output: Intake and Output for Last 24 Hours 11/19/21 11/20/21 11/21/21 23:59 23:59 23:59 Intake Total 3712.5 / 3912.5 1490 / 1490 Output Total 500 / 500 Balance 3712.5 / 3812.5 990 / 990 Lab / Micro Data Result Diagrams: 11/21/21 05:25 11/21/21 05:25 Labs: Laboratory Results - last 24 hr 11/20/21 12:45: WBC 18.6 H, RBC 4.87, Hgb 14.4, Hct 43.6, MCV 89.5, MCH 29.6, MCHC 33.0, RDW Std Deviation 44.2 H, RDW Coeff of Jeff 13.4, Plt Count 157, MPV 10.5, Immature Gran % (Auto) 1.500 H, Neut % (Auto) 79.1 H, Lymph % (Auto) 10.1 L, [place] % (Auto) 9.0, Eos % (Auto) 0.1, Baso % (Auto) 0.2, Absolute Neuts (auto) 14.7 H, Absolute Lymphs (auto) 1.87, Nucleated RBC % 0, Differential Comment SCANNED, Diff Path Review December11/20/21 12:45: Sodium 135 L, Potassium 4.1, Chloride 100, Carbon Dioxide 27.0, Anion Gap 8, BUN 41 H, Creatinine 2.52 H, Estim Creat Clear Calc 24.19, Est GFR (MDRD) Af Amer 32 L, Est GFR (MDRD) Non-Af 26 L, BUN/Creatinine Ratio 16.3, Glucose 167 H, Calcium 9.6, Total Bilirubin 0.60, AST 10 L, ALT 15 L, Alkaline Phosphatase 103, Troponin I High Sens 4, Total Protein 8.3 H, Albumin 3.7, Globulin 4.6 H, Albumin/Globulin Ratio 0.8 L 11/20/21 12:45: Lactic Acid 2.7 H* 11/20/21 17:22: POC Glucose 121 H 11/20/21 17:35: Lactic Acid 1.3 11/20/21 21:08: POC Glucose 169 H 11/20/21 : Urine Color Yellow, Urine Clarity Cloudy, Urine pH 6.0, Ur Specific [place] 1.015, Urine Protein 100 H, Urine Glucose (UA) Normal, Urine Ketones Negative, Urine Occult Blood 250 H, Urine Nitrite Positive H, Urine Bilirubin Negative, Urine Urobilinogen 1 H, Ur Leukocyte Esterase 500 H, Urine RBC 10-25 SEEN, Urine WBC >100 SEEN, Ur Squamous Epith Cells 0 SEEN, Urine Bacteria 2+, Urine Mucus 0 SEEN 11/21/21 05:25: WBC 11.7 H, RBC 3.91 L, Hgb 11.5 L, Hct 35.5 L, MCV 90.8, MCH 29.4, MCHC 32.4, RDW Std Deviation 44.8 H, RDW Coeff of Jeff 13.4, Plt Count 118 L, MPV 10.6, Immature Gran % (Auto) 1.400 H, Neut % (Auto) 77.2 H, Lymph % (Auto) 9.9 L, [place] % (Auto) 10.3 H, Eos % (Auto) 0.9, Baso % (Auto) 0.3, Absolute Neuts (auto) 9.1 H, Absolute Lymphs (auto) 1.16, Nucleated RBC % 0 11/21/21 05:25: Sodium 140, Potassium 3.5, Chloride 111 H, Carbon Dioxide 22.0, Anion Gap 7, BUN 32 H, Creatinine 1.90 H, Estim Creat Clear Calc 30.62, Est GFR (MDRD) Af Amer 44 L, Est GFR (MDRD) Non-Af 36 L, BUN/Creatinine Ratio 16.8, Glucose 60 L, Calcium 8.0 L 11/21/21 06:32: POC Glucose 66 L 11/21/21 06:53: POC Glucose 53 L 11/21/21 07:22: POC Glucose 83 Micro: Microbiology 11/20/21 Unknown Urine Catheter - Catheter Urine Culture - Preliminary Gram negative nikole Radiography Diagnostic Testing: Radiology Impression Chest X-Ray 11/20/21 13:05 IMPRESSION: Focal opacity in the right lower lateral lung, possible mass or focal pneumonia. Recommend CT. at 1434 Reported and signed by: Raven Skinner MD Electronically Signed: Raven Skinner MD at 14:33 EDT , Hip/Pelvis X-Ray 11/20/21 13:05 IMPRESSION: 1. No acute findings in the pelvis or right hip. 2. No interval change when compared to 11/15/2020. Electronically Signed: Mark Mcclain MD at 13:42 EDT , Chest CT 11/20/21 15:18 IMPRESSION: No airspace consolidation. Bibasilar atelectasis and/or scarring. Electronically Signed: Bowen Dawson MD (Brooks) at 16:55 EDT , Physical Exam Const alert and oriented x3 Exam Limitations: no limitations HEENT normocephalic, head/scalp atraumatic and hearing grossly normal bilaterally Head and Scalp: normocephalic Eyes PERRL and EOMs intact bilaterally Neck no lymphadenopathy and supple Resp Resp Narrative: mildly diminished breath sounds bibasally, no wheezes or crackles. On room air. Cardio regular rate, regular rhythm, S1 normal heart sound, S2 normal heart sound and no murmurs GI normal to inspection, nondistended, normoactive bowel sounds, soft to palpation and non-tender Extremity normal to inspection Peripheral Pulses: Yes pulses 2+ throughout Skin no rashes or lesions noted Neuro oriented x3 and CN's II-XII intact bilaterally Neuro Narrative: has chronic left sided hemiplegia from previous stroke Sensorium / Orientation: awake and alert Psych affect normal Assessment & Plan Assessment/Plan (1) Acute UTI: (2) Lactic acidosis: (3) Acute kidney injury: PLAN: #UTI * Urinalysis showed evidence of UTI * urine cultures growign gram negative rods * blood cultures pending * hydrate with IV normal saline 150cc/hr * on IV ceftriaxone. * hold BP meds * wbc has trended down to 11 from 18 on admission #Hypotension * likely due to UTI. * resolved * hold BP meds * #Lactic acidosis: likely due to dehydration and decreased intake. resolved #MAXIME * CR has trended down to 1.9 from 2.5 * likely prerenal due to decreased intake * Improved with IV fluids therefore likely prerenal * Continue gentle hydration with IV fluids. * #Debility with failure to thrive * Patient has been deteriorating since his in August 2021. * His 3 daughters have been working [id number] to provide him with 24-hour care. However daughter says has been getting weaker and they think that he will benefit from placement. * PT OT on board. Fall precautions * #Hypertension: Hold BP meds on account of low blood pressure. BP is better at 106/58 today. Continue holdiing IVF. #History of CVA with residual left-sided hemiplegia * On aspirin and Plavix as well as high intensity statin * On baclofen to help with spasticity. * Consult PT OT. Fall precautions. * #Type 2 diabetes mellitus: Hold Metformin. On Januvia. Insulin sliding scale. Accu-Cheks AC at bedtime. #BPH: On Flomax DVT prophylaxis: Lovenox renally dosed CODE STATUS: DNR CCA no intubation * Disposition: will need placement Charges/Coding Visit Charges Inpatient E&M: 08665 Subs Hosp L2
[2021-11-21] MEDS: Glucerna Shake 120 ML LIQUID PO ×2 (11:22→16:48)
[2021-11-21 11:51] LABS: Bedside Glucose 184 mg/dL (74-106)
[2021-11-21 17:10] LABS: Bedside Glucose 231 mg/dL (74-106)
[2021-11-21] MEDS: Atorvastatin Calcium 80 MG Tablet PO (21:10)
[2021-11-21] MEDS: 0.9% Saline Lock 10 ML Syringe IV (21:15)
[2021-11-21 21:25] LABS: Bedside Glucose 119 mg/dL (74-106)
[2021-11-22] VITALS (11 sets, daily range): BP systolic 136–145; BP diastolic 53–95; PULSE 84–119; RESP 12–18; TEMP 36.6–36.7; O2SAT 16–98
[2021-11-22 06:26] LABS: Absolute Neutrophil Count 6.4 X10^3/uL (2.0-7.7); Basophil# 0.03 X10^3/uL; Basophil% 0.3 % (0-1); Eosinophils% 2.3 % (0-5); Hematocrit 34.9 % (40-54); Hemoglobin 11.5 g/dL (13.0-16.5); Lymphocyte % 12.6 % (19-41); Mean Corpuscular Hgb 29.6 pg (27.0-32.0); Mean Corpuscular Volume 89.7 fL (80-94); Mean Platelet Vol. 10.6 fl (6.2-12.0); Monocyte# 0.91 X10^3/uL; Monocyte% 10.4 % (0-10); NRBC Flagged by Analyzer 0 % (0-5); Neutrophil # 6.43 X10^3/uL (2.7-7.7); Neutrophil % 73.8 % (47-70); Platelet Count 140 K/mm3 (150-450); RBC Distribution Width CV 13.3 % (11.6-14.6); RBC Distribution Width SD 43.8 fl (35.1-43.9); Red Blood Count 3.89 M/mm3 (4.6-6.2); White Blood Count 8.7 K/mm3 (4.4-11.0)
[2021-11-22 06:54] LABS: Anion Gap 4 (5-15); BUN 26 mg/dL (7-18); BUN/Creat Ratio 15.7 RATIO (10-20); Calcium,Total 8.6 mg/dL (8.5-10.1); Chloride 113 mmol/L (98-107); Creatinine, Serum 1.66 mg/dL (0.70-1.30); EST Glomerular Filtration Rate 42 mL/min (>60); Est Glom Filt Rate - Afr Amer 51 mL/min (>60); Estimated Creatinine Clearance 35.05 ml/min; Glucose 72 mg/dL (74-106); Sodium Level 140 mmol/L (136-145)
[2021-11-22 07:25] LABS: Bedside Glucose 80 mg/dL (74-106)
[2021-11-22 07:25] LABS: Bedside Glucose 67 mg/dL (74-106)
[2021-11-22] MEDS: Glucerna Shake 120 ML LIQUID PO ×3 (07:56→17:58)
[2021-11-22] MEDS: Potassium Chloride Oral Tablet 20 MEQ PO (07:57)
[2021-11-22] MEDS: Enoxaparin 40 MG/0.4 ML Syringe 30 MG SC (07:58)
[2021-11-22] MEDS: Cholecalciferol (VIT D3) 25 MCG TABLET (1,000 UNITS) 50 MCG PO (08:00)
[2021-11-22] MEDS: Tamsulosin HCl 0.4 MG Capsule PO (08:01)
[2021-11-22] MEDS: Glimepiride 4 MG Tablet 8 MG PO ×2 (08:01)
[2021-11-22] MEDS: Venlafaxine XR 150 MG Capsule PO (08:02)
[2021-11-22] MEDS: Clopidogrel Bisulfate 75 MG Tablet PO (08:02)
[2021-11-22] MEDS: Celecoxib 200 MG Capsule PO ×2 (08:02→21:10)
[2021-11-22] MEDS: Aspirin E.C. 81 MG Tablet PO (08:02)
[2021-11-22] MEDS: Ceftriaxone 1 GM/50 ML BAG IV (08:04)
--- NOTE | 2021-11-22 10:03 | CASEMGMT ---
BERNARDA called patient's daughter Jose. Jose said she and her sister ate almost to [facility]. BERNARDA told her to tell the ladies at the desk that they are here and BERNARDA will talk with therm. Tanya BLACK
[2021-11-22] MEDS: Insulin Lispro 100 UNIT/ML INSULN.PEN SC ×3 (10:20→21:09)
[2021-11-22 10:21] LABS: Bedside Glucose 160 mg/dL (74-106)
--- NOTE | 2021-11-22 10:37 | CASEMGMT ---
SW spoke with patient's daughters Jose and Kourtney. They wanted to talk with SW without patient. Patient is normally alert and oriented X4, but has always been strong willed and non compliant. Patient's in Aug of this year. She was with patient 06/03 and helped care for patient. Patient is wheelchair bound and normally can stand and pivot. Lately he has not been able to stand because he is too weak. Patient's 3 daughters have all been taking turns staying with him. However, he is too much for them to handle. They would like for him to go to TCU for rehab and then maybe assisted living. Patient's daughter Jose has talked with patient about AL and he seemed receptive. This stay patient has threatened to leave AMA. SW explained that if the physician feels patient is not alert and oriented X3 he would not be able to sign out AMA. Patient's daughters are worried patient is going to get discharged home and they cannot care for him. SW provided patient's daughters with a list of SNF providers including quality and resource use data and consistent with the patient?s preferred geographic region, medical needs, and insurance network. BERNARDA told them SW will check with TCU to see if there is any availability. SW asked them to pick at least 2 other facilities in the event TCU does not have beds. Their next choices [facility]. BERNARDA called TCU referral line and inquired if there would be a bed for patient. Carmen will check into it and get back to BERNARDA. Tanya Holloway DIRECTOR SUPPLIER [employer]ALITY [employer]
[2021-11-22] MEDS: oxyCODONE 5 MG Tablet PO (10:51)
--- NOTE | 2021-11-22 12:56 | CASEMGMT ---
BERNARDA spoke with Carmen with TCU and they are unable to take patient. BERNARDA called Antonietta with [facility] regarding referral as well as faxed information. BERNARDA will updated patient's daughter Jose. Tanya Holloway MANUFACTURING ENGINEERING DIRECTOR [employer]
--- NOTE | 2021-11-22 12:59 | PN.HOSP_ITS ---
Subjective Subjective Follow-up on acute UTI/lactic acidosis/hypotension: Patient was seen and examined. Denied any new complaints. Blood pressures are stable. Patient has been found to be a two-person assist, subacute rehab recommended, patient refused. Objective Data Objective Data Vital Signs: Vital Signs Temp Pulse Resp BP Pulse Ox 98.1 F 109 H 16 136/53 H 16 11/22/21 09:15 11/22/21 11:16 11/22/21 09:15 11/22/21 09:15 11/22/21 09:15 Oxygen Flow Rate (L/min) 2 Oxygen Delivery Method Room Air Weight: 71 kg Body Mass Index (BMI) 21.2 Intake & Output: Intake and Output for Last 24 Hours 11/20/21 11/21/21 11/22/21 23:59 23:59 23:59 Intake Total 3712.5 / 3912.5 2270 / 2270 790 / 790 Output Total 1400 / 1400 700 / 700 Balance 3712.5 / 3812.5 870 / 870 90 / 90 Lab / Micro Data Result Diagrams: 11/22/21 05:47 11/22/21 05:47 Labs: Laboratory Results - last 24 hr 11/21/21 16:46: POC Glucose 231 H 11/21/21 21:09: POC Glucose 119 H 11/22/21 05:47: WBC 8.7, RBC 3.89 L, Hgb 11.5 L, Hct 34.9 L, MCV 89.7, MCH 29.6, MCHC 33.0, RDW Std Deviation 43.8, RDW Coeff of Jeff 13.3, Plt Count 140 L, MPV 10.6, Immature Gran % (Auto) 0.600, Neut % (Auto) 73.8 H, Lymph % (Auto) 12.6 L, [place] % (Auto) 10.4 H, Eos % (Auto) 2.3, Baso % (Auto) 0.3, Absolute Neuts (auto) 6.4, Absolute Lymphs (auto) 1.10, Nucleated RBC % 0 11/22/21 05:47: Sodium 140, Potassium 4.0, Chloride 113 H, Carbon Dioxide 23.0, Anion Gap 4 L, BUN 26 H, Creatinine 1.66 H, Estim Creat Clear Calc 35.05, Est GFR (MDRD) Af Amer 51 L, Est GFR (MDRD) Non-Af 42 L, BUN/Creatinine Ratio 15.7, Glucose 72 L, Calcium 8.6 11/22/21 06:54: POC Glucose 67 L 11/22/21 07:19: POC Glucose 80 11/22/21 10:12: POC Glucose 160 H Micro: Microbiology 11/20/21 Unknown Urine Catheter - Catheter Urine Culture - Final Morganella morganii sp sibonii Physical Exam Narrative Physical exam: General: Alert, Oriented x3, Cooperative, No apparent distress, Well developed HEENT: Atraumatic Oral: Moist Mucosa Neck: Supple Lungs: Clear to auscultation Cardiovascular: HS I+II, regular, no murmurs Abdomen: Bowel Sounds Present, Soft, Non Tender Extremities: No edema Skin: No rashes, No breakdown Neurological: Chronic left sided hemiplegia Psych/Mental Status: Appropriate Assessment & Plan Assessment/Plan (1) Acute UTI: (2) Lactic acidosis: (3) Acute kidney injury: PLAN: 1. Acute Morganella morganii UTI, improving Will switch to IV Levaquin 2. Hypotension, resolved We will continue to monitor Blood pressure meds on hold 3. MAXIME, prerenal, improved Baseline creatinine is 1.0-1.2 Patient creatinine is 1.66, down from 2.52 Continue to monitor 4. Debility with failure to thrive, History of CVA with residual left-sided hemiplegia Patient skilled for discharge to correction facility Continue on aspirin, Plavix, statin, baclofen 5. Type 2 diabetes mellitus, BS are controlled Continue to hold Metformin. Continue on Januvia, continue blood glucose checks and ISS 6. BPH, continue on Flomax 7. DVT prophylaxis- Lovenox SC Charges/Coding Visit Charges Inpatient E&M: 98551 Subs Hosp L2
[2021-11-22 13:21] LABS: Pathologist Review Reviewed
[2021-11-22] MEDS: ALPRAZolam 0.5 MG Tablet PO ×2 (14:24→21:10)
--- NOTE | 2021-11-22 14:35 | CASEMGMT ---
SW called patient's daughter, Jose. SW let her know [facility] cannot take patient. SW let her know a referral was faxed to [place] and SW is awaiting a response. Jose asked if the physician saw patient yet or not and SW told her SW was not sure. SW explained the physician and SW can talk with patient about long-term and that this is recommended. Jose said patient was fine when she and her sister visited him earlier today. He told them both he loves them. He told them that he does not want them staying with him 06/03. Patient told them they can call him regularly to see if he needs anything. SW spoke with physician about SNF being recommended and patient not agreeing. Physician attempted to talk with patient about going to a long-term, however patient was still not in agreement. SW will check with therapy tomorrow and maybe go in with them when they work with patient. Tanya Holloway COMBER SETTER SOFIA
--- NOTE | 2021-11-22 14:45 | CASEMGMT ---
SW received a call from [facility]iet[facility]. They can accept patient and she will start the pre-cert. Tanya BLACK
--- NOTE | 2021-11-22 15:19 | CASEMGMT ---
Therapy went back to patient's room to work with him. Patient did need assist of 2 people to go from sit to stand. It is recommended he go to a facility. SW met with patient. Introduced self and role at [facility]. SW discussed with patient that he requires an assist of 2 people to go from sitting to standing. SW said he will not be able to do this at home as he lives alone. Patient insisted he can do it. Patient said he is better equipped at home than he is here at the hospital. Patient said he has a triangle over his bed that he uses to get up. Patient also has grab bars everywhere throughout the house including by his toilet. SW told patient that he is weak right now and it is unlikely he will be able to pull himself up like he normally does. Patient insists he will be able to do this at home without any help. BERNARDA explained therapy, SW, and physician all feel he is unsafe for home right now and should go somewhere short term for rehab. Patient said he is going home. Tanya BLACK
--- NOTE | 2021-11-22 15:32 | CASEMGMT ---
SW called patient's daughter Jose. BERNARDA updated her on conversations that therapy, physician, and SW had with patient today. SW told Jose that patient is not agreeing to go anywhere for rehab. SW explained that when the physician spoke with patient she felt he was able to make his own decisions. SW explained that we will continue to talk with patient, but at this time patient is not agreeing to go to rehab. Jose said he is not safe at home. SW explained that SW agrees, but if patient is able to make his own decisions, he cannot be made to do something he does not want to do. BERNARDA explained that SW will call Adult Protective Services if he ends up going home. BERNARDA told Jose SW will check back with her tomorrow. Tanya BLACK
[2021-11-22 16:20] LABS: Bedside Glucose 167 mg/dL (74-106)
[2021-11-22] MEDS: levoFLOXacin IV 500 MG/100 ML BAG 100 MG IV (17:58)
[2021-11-22] MEDS: Atorvastatin Calcium 80 MG Tablet PO (21:10)
[2021-11-22 22:16] LABS: Bedside Glucose 242 mg/dL (74-106)
[2021-11-23] VITALS (10 sets, daily range): BP systolic 139–160; BP diastolic 83–95; PULSE 68–108; RESP 16–18; TEMP 36.5–36.7; O2SAT 94–98
[2021-11-23] MEDS: ALPRAZolam 0.5 MG Tablet PO ×3 (06:23→20:46)
[2021-11-23 06:50] LABS: Bedside Glucose 71 mg/dL (74-106)
[2021-11-23] MEDS: Cholecalciferol (VIT D3) 25 MCG TABLET (1,000 UNITS) 50 MCG PO (08:26)
[2021-11-23] MEDS: Enoxaparin 40 MG/0.4 ML Syringe 30 MG SC (08:26)
[2021-11-23] MEDS: Aspirin E.C. 81 MG Tablet PO (08:26)
[2021-11-23] MEDS: Glimepiride 4 MG Tablet 8 MG PO (08:26)
[2021-11-23] MEDS: Clopidogrel Bisulfate 75 MG Tablet PO (08:27)
[2021-11-23] MEDS: Celecoxib 200 MG Capsule PO ×2 (08:27→20:46)
[2021-11-23] MEDS: Potassium Chloride Oral Tablet 20 MEQ PO (08:27)
[2021-11-23] MEDS: Tamsulosin HCl 0.4 MG Capsule PO ×2 (08:27→08:28)
[2021-11-23 08:29] LABS: Absolute Lymphocyte Count 0.96 X10^3/uL (0.83-4.51); Absolute Neutrophil Count 6.2 X10^3/uL (2.0-7.7); Basophil# 0.04 X10^3/uL; Basophil% 0.5 % (0-1); Eosinophil# 0.28 X10^3/uL; Eosinophils% 3.3 % (0-5); Hematocrit 39.9 % (40-54); Hemoglobin 13.4 g/dL (13.0-16.5); Lymphocyte # 0.96 X10^3/ul (0.83-4.51); Lymphocyte % 11.2 % (19-41); Mean Corp Hgb Conc 33.6 g/dL (32-36); Mean Corpuscular Hgb 29.1 pg (27.0-32.0); Mean Corpuscular Volume 86.7 fL (80-94); Monocyte# 1.01 X10^3/uL; Monocyte% 11.8 % (0-10); NRBC Flagged by Analyzer 0 % (0-5); Neutrophil # 6.24 X10^3/uL (2.7-7.7); Neutrophil % 72.7 % (47-70); Platelet Count 159 K/mm3 (150-450); RBC Distribution Width CV 13.5 % (11.6-14.6); RBC Distribution Width SD 43.2 fl (35.1-43.9); White Blood Count 8.6 K/mm3 (4.4-11.0)
[2021-11-23] MEDS: Metoprolol Tartrate 50 MG Tablet PO ×2 (08:30→20:45)
[2021-11-23] MEDS: amLODIPine 5 MG Tablet PO (08:32)
[2021-11-23] MEDS: Venlafaxine XR 150 MG Capsule PO (08:44)
[2021-11-23 08:58] LABS: ALB/GLOB Ratio 0.7 RATIO (0.9-2.4); AST(SGOT) 11 U/L (15-37); Alanine Aminotransfer ALT/SGPT 18 U/L (16-61); Albumin, Serum 2.9 g/dL (3.2-5.0); Alkaline Phosphatase 99 U/L (45-117); Anion Gap 7 (5-15); BUN 17 mg/dL (7-18); BUN/Creat Ratio 11.6 RATIO (10-20); Calcium,Total 9.6 mg/dL (8.5-10.1); Chloride 109 mmol/L (98-107); Creatinine, Serum 1.46 mg/dL (0.70-1.30); EST Glomerular Filtration Rate 49 mL/min (>60); Est Glom Filt Rate - Afr Amer 60 mL/min (>60); Estimated Creatinine Clearance 39.85 ml/min; Globulin 4.4 g/dL (2.2-4.2); Glucose 126 mg/dL (74-106); Potassium 4.1 mmol/L (3.5-5.1); Protein, Total 7.3 g/dL (6.4-8.2); Sodium Level 141 mmol/L (136-145)
--- NOTE | 2021-11-23 10:52 | CASEMGMT ---
SW spoke with physician and patient is not safe for discharge home. Patient is adamantly refusing to go to SNF. It was decided patient's daughter(s), RN, physician, SW, and therapy if available will all meet with patient together and share the concerns. BERNARDA called patient's daughter, Jose and explained this to her. She is in agreement. She will check with her sister and get back to SW. Jose called BERNARDA back and said her sister is not up to it, but she will be in. She will leave work now and she will be here around noon. SW notified physician and RN. SW will try and reach therapy. Tanya Holloway DIRECTOR DIGITAL TRAFFIC AGENT
[2021-11-23] MEDS: Insulin Lispro 100 UNIT/ML INSULN.PEN SC ×3 (11:39→20:47)
[2021-11-23] MEDS: levoFLOXacin IV 250 MG/50 ML BAG 50 MG IV (11:39)
--- NOTE | 2021-11-23 12:00 | CASEMGMT ---
BERNARDA, RN, patient's daughter Jose and physician went to patient's room to discuss d/c plan. Physician, RN, and patient's daughter spoke with him about not being safe at home. It was then explained to patient that if he wants to go home he needs to show us how he can get up and pivot on his own. RN and physician were supporting patient if he could not do it. Patient made numerous attempts and could not get up on his own. At that time Felipa Animal Husbandry Manager came into the room. Felipa was able to get patient to transition from chair to bed with a lot of assist. Felipa then sat down with patient and discussed what would be the safest d/c plan. After much discussion patient agreed to go to [facility]. Patient's daughter stayed and visited with patient. Pre-cert has already been initiated. Tanya Holloway KEG VARNISHER SOFIA
[2021-11-23 12:05] LABS: Bedside Glucose 237 mg/dL (74-106)
[2021-11-23 15:25] LABS: Bedside Glucose 244 mg/dL (74-106)
--- NOTE | 2021-11-23 15:38 | PN.HOSP_ITS ---
Subjective Subjective Follow-up on acute UTI/lactic acidosis/hypotension: Patient was seen and examined. His BP is elevated. Home BP meds resumed. Discussed with patient, daughter at the bedside, patient's nurse and physical therapist, explained to patient why it is not safe to be discharged home with no sufficient care round the clock. Patient voiced understanding and will be discharged to the [facility]. Objective Data Objective Data Vital Signs: Vital Signs Temp Pulse Resp BP Pulse Ox 98.0 F 70 16 148/95 H 96 11/23/21 09:03 11/23/21 11:52 11/23/21 09:03 11/23/21 09:03 11/23/21 09:03 Oxygen Flow Rate (L/min) 2 Oxygen Delivery Method Room Air Weight: 71 kg Body Mass Index (BMI) 21.2 Intake & Output: Intake and Output for Last 24 Hours 11/21/21 11/22/21 11/23/21 23:59 23:59 23:59 Intake Total 2270 / 2270 1550 / 1550 150 / 150 Output Total 1400 / 1400 1150 / 1150 500 / 500 Balance 870 / 870 400 / 400 -350 / -350 Lab / Micro Data Result Diagrams: 11/23/21 08:15 11/23/21 08:15 Labs: Laboratory Results - last 24 hr 11/22/21 16:11: POC Glucose 167 H 11/22/21 21:07: POC Glucose 242 H 11/23/21 06:28: POC Glucose 71 L 11/23/21 08:15: WBC 8.6, RBC 4.60, Hgb 13.4, Hct 39.9 L, MCV 86.7, MCH 29.1, MCHC 33.6, RDW Std Deviation 43.2, RDW Coeff of Jeff 13.5, Plt Count 159, MPV 10.0, Immature Gran % (Auto) 0.500, Neut % (Auto) 72.7 H, Lymph % (Auto) 11.2 L, [place] % (Auto) 11.8 H, Eos % (Auto) 3.3, Baso % (Auto) 0.5, Absolute Neuts (auto) 6.2, Absolute Lymphs (auto) 0.96, Nucleated RBC % 0 11/23/21 08:15: Sodium 141, Potassium 4.1, Chloride 109 H, Carbon Dioxide 25.0, Anion Gap 7, BUN 17, Creatinine 1.46 H, Estim Creat Clear Calc 39.85, Est GFR (MDRD) Af Amer 60, Est GFR (MDRD) Non-Af 49 L, BUN/Creatinine Ratio 11.6, Glucose 126 H, Calcium 9.6, Total Bilirubin 0.20, AST 11 L, ALT 18, Alkaline Phosphatase 99, Total Protein 7.3, Albumin 2.9 L, Globulin 4.4 H, Albumin/Globulin Ratio 0.7 L 11/23/21 11:38: POC Glucose 237 H 11/23/21 15:08: POC Glucose 244 H Micro: Microbiology 11/20/21 Unknown Urine Catheter - Catheter Urine Culture - Final Morganella morganii sp waqari Physical Exam Narrative Physical exam: General: Alert, Oriented x3, Cooperative, No apparent distress HEENT: Atraumatic Oral: Moist Mucosa Neck: Supple Lungs: Diminished to auscultation Cardiovascular: HS I+II, regular, no murmurs Abdomen: Bowel Sounds Present, Soft, Non Tender Extremities: No edema Skin: No rashes, No breakdown Neurological: Chronic left sided hemiplegia Psych/Mental Status: Appropriate Assessment & Plan Assessment/Plan (1) Acute UTI: (2) Lactic acidosis: (3) Acute kidney injury: PLAN: 1. Acute Morganella morganii UTI, improving Continue on IV Levaquin for a total of 7 days of antibiotics 2. Hypotension, resolved Will resume home BP meds now 3. MAXIME, prerenal, improved Baseline creatinine is 1.0-1.2 Patient's creatinine is 1.46, down from 2.52 Continue to monitor 4. Debility with failure to thrive, History of CVA with residual left-sided hemiplegia Patient skilled for discharge to [facility] facility Continue on aspirin, Plavix, statin, baclofen 5. Type 2 diabetes mellitus, BS are controlled Continue to hold Metformin. Continue on Januvia, continue blood glucose checks and ISS 6. BPH, continue on Flomax 7. DVT prophylaxis- Lovenox SC Charges/Coding Visit Charges Inpatient E&M: 60078 Subs Hosp L2
[2021-11-23] MEDS: Glucerna Shake 120 ML LIQUID PO (16:41)
[2021-11-23] MEDS: Atorvastatin Calcium 80 MG Tablet PO (20:45)
[2021-11-23 22:40] LABS: Bedside Glucose 186 mg/dL (74-106)
[2021-11-24] VITALS (9 sets, daily range): BP systolic 121–143; BP diastolic 65–77; PULSE 61–89; RESP 14–18; TEMP 35.8–36.6; O2SAT 91–99
[2021-11-24 06:10] LABS: Absolute Lymphocyte Count 1.35 X10^3/uL (0.83-4.51); Absolute Neutrophil Count 5.4 X10^3/uL (2.0-7.7); Basophil# 0.05 X10^3/uL; Basophil% 0.6 % (0-1); Eosinophil# 0.31 X10^3/uL; Eosinophils% 3.8 % (0-5); Hematocrit 41.2 % (40-54); Hemoglobin 13.4 g/dL (13.0-16.5); Lymphocyte # 1.35 X10^3/ul (0.83-4.51); Lymphocyte % 16.4 % (19-41); Mean Corp Hgb Conc 32.5 g/dL (32-36); Mean Corpuscular Hgb 29.1 pg (27.0-32.0); Mean Corpuscular Volume 89.4 fL (80-94); Mean Platelet Vol. 10.3 fl (6.2-12.0); Monocyte# 1.01 X10^3/uL; Monocyte% 12.3 % (0-10); NRBC Flagged by Analyzer 0 % (0-5); Neutrophil # 5.35 X10^3/uL (2.7-7.7); Neutrophil % 65.2 % (47-70); Platelet Count 163 K/mm3 (150-450); RBC Distribution Width CV 13.8 % (11.6-14.6); RBC Distribution Width SD 45.1 fl (35.1-43.9); Red Blood Count 4.61 M/mm3 (4.6-6.2); White Blood Count 8.2 K/mm3 (4.4-11.0)
[2021-11-24] MEDS: ALPRAZolam 0.5 MG Tablet PO ×2 (06:39→15:03)
[2021-11-24 06:51] LABS: ALB/GLOB Ratio 0.7 RATIO (0.9-2.4); AST(SGOT) 25 U/L (15-37); Alanine Aminotransfer ALT/SGPT 31 U/L (16-61); Alkaline Phosphatase 111 U/L (45-117); Anion Gap 7 (5-15); BUN 28 mg/dL (7-18); BUN/Creat Ratio 18.2 RATIO (10-20); Calcium,Total 9.1 mg/dL (8.5-10.1); Chloride 106 mmol/L (98-107); Creatinine, Serum 1.54 mg/dL (0.70-1.30); EST Glomerular Filtration Rate 46 mL/min (>60); Est Glom Filt Rate - Afr Amer 56 mL/min (>60); Estimated Creatinine Clearance 37.78 ml/min; Globulin 4.3 g/dL (2.2-4.2); Glucose 133 mg/dL (74-106); Potassium 4.2 mmol/L (3.5-5.1); Protein, Total 7.3 g/dL (6.4-8.2); Sodium Level 135 mmol/L (136-145)
[2021-11-24] MEDS: Potassium Chloride Oral Tablet 20 MEQ PO (08:43)
[2021-11-24] MEDS: Venlafaxine XR 150 MG Capsule PO (08:44)
[2021-11-24] MEDS: Clopidogrel Bisulfate 75 MG Tablet PO (08:44)
[2021-11-24] MEDS: Aspirin E.C. 81 MG Tablet PO (08:44)
[2021-11-24] MEDS: Cholecalciferol (VIT D3) 25 MCG TABLET (1,000 UNITS) 50 MCG PO (08:44)
[2021-11-24] MEDS: amLODIPine 5 MG Tablet PO (08:44)
[2021-11-24] MEDS: Metoprolol Tartrate 50 MG Tablet PO (08:45)
[2021-11-24] MEDS: Enoxaparin 40 MG/0.4 ML Syringe SC (08:45)
--- NOTE | 2021-11-24 10:43 | CASEMGMT ---
BERNARDA called [facility] [place] and left her a voice mail requesting a return call. Tanya Holloway RF TECHNICIAN SOFIA
[2021-11-24] MEDS: 0.9% Saline Lock 10 ML Syringe IV (10:45)
[2021-11-24] MEDS: levoFLOXacin IV 250 MG/50 ML BAG 50 MG IV (10:46)
--- NOTE | 2021-11-24 10:57 | PCM.TXEXTCAR ---
Diet 11/20/21 15:50 Diet: Cardiac: Calorie-Controlled Food consistency:: Regular Liquid Consistency:: Regular/Thin How many daily calories?: 1800 calorie Routine Orders/Code Status Keep PO Greater than or Equal to (%): 94 Routine Lab Work: CBC (within 3 days) and BMP (within 3 days) Code Status: DNRCC-A (No intubation) Therapies Weight Bearing: Weight bearing as tolerated Physical Therapy: Eval and Treat Occupational Therapy: Eval and Treat Problem/Diagnosis (1) Acute UTI: Status: Acute (2) Lactic acidosis: Status: Acute (3) Acute kidney injury: Status: Acute Allergies/Procedures Done in Hospital Allergies procaine [From Novocain] Allergy (Unknown, Verified 11/20/21 12:25) Unknown fluoxetine [From Prozac] Adverse Reaction (Verified 11/20/21 12:25) Other HALLUCINATIONS Procedures: None Type of Care/Length of Stay Estimated LOS: Convalescent Care Less Than 30 days Type of Care Needed: Skilled Rehab Potential: Good Prognosis: Good Additional Orders/Day of Discharge Day of Discharge: 11/24/21 Dietary and Speech Recommendations Dietitian Recommendations/Changes: Will continue diet as ordered Will order 120 ml glucerna shake tid w/ medpass for increased jay if consumed to help prevent wt loss Discharge Plan Admission Admit Date/Time: 11/20/21 14:36 Primary Reason for Your Visit: Debility Attending Provider: Britney Mueller Primary Care Provider: Fredy Ribeiro Discharge Orders/Prescriptions Prescriptions: New Glucerna 1.2 Jay 0.06-1.2 gram-kcal/mL Liquid 120 ml PO TIDCM Qty: 0 RF: 0 levofloxacin 500 mg tablet 250 mg PO DAILY 3 Days Qty: 2 RF: 0 Continued aspirin [Adult Low Dose Aspirin] 81 mg tablet,delayed release (DR/EC) 81 mg PO QDAY RF: 0 clopidogrel [Plavix] 75 mg tablet 75 mg PO DAILY RF: 0 Hold Instructions: Resume on 01/04/21. amlodipine [Norvasc] 5 MG tablet 5 mg PO DAILY RF: 0 metoprolol tartrate 50 mg tablet 50 mg PO BID RF: 0 venlafaxine 150 MG tablet extended release 24hr 150 mg PO DAILY RF: 0 metformin 500 MG tablet 500 mg PO BIDCM RF: 0 baclofen 10 MG tablet 10 mg PO TID PRN PRN (Reason: muscle spasms) RF: 0 cholecalciferol (vitamin D3) 2,000 UNIT capsule 2,000 unit PO DAILY RF: 0 glimepiride 2 MG tablet 8 mg PO DAILY Qty: 0 RF: 0 tamsulosin [Flomax] 0.4 MG capsule 0.4 mg PO DAILY RF: 0 rosuvastatin [Crestor] 40 MG tablet 40 mg PO QHS RF: 0 Januvia 100 mg tablet 100 mg PO DAILY RF: 0 alprazolam 0.5 MG tablet 0.5 mg PO TID RF: 0 Changed celecoxib 200 mg PO/SL BID PRN (Reason: Pain, Severe) Qty: 0 RF: 0 Discontinued potassium chloride 20 MEQ tablet 20 meq PO DAILYCM Qty: 30 RF: 0 Referrals / Follow Up: Fredy Ribeiro MD [Primary Care Provider] - Within 1 Week Disposition Disposition (needs filled in before D/C Order can be placed): [facility]
[2021-11-24 11:37] LABS: Bedside Glucose 140 mg/dL (74-106)
--- NOTE | 2021-11-24 13:00 | CASEMGMT ---
BERNARDA received a return call from Antonietta at [facility]. Antonietta said Leonardo contacted her with some questions which she answered. Antonietta asked them to please have an answer today. Tanya BALCK
--- NOTE | 2021-11-24 14:27 | CASEMGMT ---
BERNARDA received a call and patient was approved. BERNARDA notified physician, RN, secretary bookkeeper, and patient's daughter Jose. BERNARDA told Jose that BERNARDA will call her when SW has a sampler pickup time. Await orders. Tanya BLACK
--- NOTE | 2021-11-24 14:37 | PCM.DC.SUM ---
Providers Date of Admission: 11/20/21 Date of Discharge: 11/24/21 Primary Care Physician: Dr. Fredy Ribeiro MD Reason For Visit: DEBILITY, UTI, FAILURE TO THRIVE Diagnosis Discharge Diagnosis (1) Acute UTI: Status: Acute Code(s): N39.0 - Urinary tract infection, site not specified (2) Lactic acidosis: Status: Acute Code(s): E87.2 - Acidosis (3) Acute kidney injury: Status: Acute Code(s): N17.9 - Acute kidney failure, unspecified Medications at Discharge Home Medications amlodipine [Norvasc] 5 mg PO DAILY 05/04/17 aspirin 81 mg tablet,delayed release 81 mg PO QDAY 09/01/17 clopidogrel 75 mg tablet 75 mg PO DAILY 09/01/17 metoprolol tartrate 50 mg tablet 50 mg PO BID tab 04/10/18 venlafaxine 150 mg PO DAILY 06/13/19 baclofen 10 mg PO TID PRN PRN 11/15/20 cholecalciferol (vitamin D3) 2,000 unit PO DAILY 11/15/20 metformin 500 mg PO BIDCM 11/15/20 glimepiride 8 mg PO DAILY #0 11/17/20 Januvia 100 mg PO DAILY 12/23/20 rosuvastatin [Crestor] 40 mg PO QHS 12/23/20 tamsulosin [Flomax] 0.4 mg PO DAILY 12/23/20 alprazolam 0.5 mg PO TID 11/20/21 celecoxib 200 mg PO/SL BID PRN #0 11/24/21 levofloxacin 250 mg PO DAILY 3 Days #2 tab 11/24/21 nut.tx.gluc intol,lf,soy-fiber [Glucerna 1.2 Jay] 120 ml PO TIDCM #0 ml 11/24/21 Hospital Course Operations None Procedures None Summary of Care Provided Minutes Spent on Discharge: 35 Hospital Course: 81-year-old male with extensive past medical history significant for history of CVA with chronic left hemiplegia, resident at home, comes in with generalized weakness and offensive smelling urine. Patient is being cared for by his 3 daughters who take turns. Family is unable to continue with this as patient is more weaker. He was also reported as not eating or drinking enough. In the ED, his blood pressure was low, 99/57, his creatinine was 2.52, lactic acid was 2.7, urinalysis was significant for UTI. [facility] and managed as acute UTI. Urine cultures grew Morganella. Patient was initially on IV ceftriaxone that was switched to Levaquin. He was seen by PT and OT and skilled for discharge to care home facility. Initially patient did not want to go, and interdisciplinary meeting was held and patient agreed to for subacute care. He was discharged on 3 more days of Levaquin. His blood pressures were improved without discharge. He was slowly resumed back on his medication. Physical Exam Narrative Physical exam: General: Alert, Oriented x3, Cooperative, No apparent distress HEENT: Atraumatic Oral: Moist Mucosa Neck: Supple Lungs: Diminished to auscultation Cardiovascular: HS I+II, regular, no murmurs Abdomen: Bowel Sounds Present, Soft, Non Tender Extremities: No edema Skin: No rashes, No breakdown Neurological: Chronic left sided hemiplegia Psych/Mental Status: Appropriate Weight / BMI Weight Weight: 71 kg Body Mass Index (BMI) 21.2 ABG / Lab / Microbiology Data Result Diagrams: 11/24/21 05:50 11/24/21 05:50 Laboratory: Laboratory Results - last 24 hr 11/23/21 15:08: POC Glucose 244 H 11/23/21 20:41: POC Glucose 186 H 11/24/21 05:50: WBC 8.2, RBC 4.61, Hgb 13.4, Hct 41.2, MCV 89.4, MCH 29.1, MCHC 32.5, RDW Std Deviation 45.1 H, RDW Coeff of Jeff 13.8, Plt Count 163, MPV 10.3, Immature Gran % (Auto) 1.700 H, Neut % (Auto) 65.2, Lymph % (Auto) 16.4 L, [place] % (Auto) 12.3 H, Eos % (Auto) 3.8, Baso % (Auto) 0.6, Absolute Neuts (auto) 5.4, Absolute Lymphs (auto) 1.35, Nucleated RBC % 0 11/24/21 05:50: Sodium 135 L, Potassium 4.2, Chloride 106, Carbon Dioxide 22.0, Anion Gap 7, BUN 28 H, Creatinine 1.54 H, Estim Creat Clear Calc 37.78, Est GFR (MDRD) Af Amer 56 L, Est GFR (MDRD) Non-Af 46 L, BUN/Creatinine Ratio 18.2, Glucose 133 H, Calcium 9.1, Total Bilirubin 0.30, AST 25, ALT 31, Alkaline Phosphatase 111, Total Protein 7.3, Albumin 3.0 L, Globulin 4.3 H, Albumin/Globulin Ratio 0.7 L 11/24/21 11:24: POC Glucose 140 H Microbiology: Microbiology 11/20/21 Unknown Urine Catheter - Catheter Urine Culture - Final Morganella morganii sp sibonii D/C Instructions Discharge Diet: 2000 Calorie Control Diet and 2000 mg Sodium Diet Meaningful Use Info Meaningful Use Diagnoses (Choose all that apply): None applicable Discharge Plan Admission Admit Date/Time: 11/20/21 14:36 Primary Reason for Your Visit: Debility Attending Provider: Britney Mueller Primary Care Provider: Fredy Ribeiro Discharge Orders/Prescriptions Prescriptions: New Glucerna 1.2 Jay 0.06-1.2 gram-kcal/mL Liquid 120 ml PO TIDCM Qty: 0 RF: 0 levofloxacin 500 mg tablet 250 mg PO DAILY 3 Days Qty: 2 RF: 0 Continued aspirin [Adult Low Dose Aspirin] 81 mg tablet,delayed release (DR/EC) 81 mg PO QDAY RF: 0 clopidogrel [Plavix] 75 mg tablet 75 mg PO DAILY RF: 0 Hold Instructions: Resume on 01/04/21. amlodipine [Norvasc] 5 MG tablet 5 mg PO DAILY RF: 0 metoprolol tartrate 50 mg tablet 50 mg PO BID RF: 0 venlafaxine 150 MG tablet extended release 24hr 150 mg PO DAILY RF: 0 metformin 500 MG tablet 500 mg PO BIDCM RF: 0 baclofen 10 MG tablet 10 mg PO TID PRN PRN (Reason: muscle spasms) RF: 0 cholecalciferol (vitamin D3) 2,000 UNIT capsule 2,000 unit PO DAILY RF: 0 glimepiride 2 MG tablet 8 mg PO DAILY Qty: 0 RF: 0 tamsulosin [Flomax] 0.4 MG capsule 0.4 mg PO DAILY RF: 0 rosuvastatin [Crestor] 40 MG tablet 40 mg PO QHS RF: 0 Januvia 100 mg tablet 100 mg PO DAILY RF: 0 alprazolam 0.5 MG tablet 0.5 mg PO TID RF: 0 Changed celecoxib 200 mg PO/SL BID PRN (Reason: Pain, Severe) Qty: 0 RF: 0 Discontinued potassium chloride 20 MEQ tablet 20 meq PO DAILYCM Qty: 30 RF: 0 Referrals / Follow Up: Fredy Ribeiro MD [Primary Care Provider] - Within 1 Week Disposition Disposition (needs filled in before D/C Order can be placed): [facility] Charges/Coding Visit Charges Inpatient E&M: 79793 Disch Hosp
--- NOTE | 2021-11-24 15:08 | CASEMGMT ---
BERNARDA arranged for patient to get picked up at 1630 via cot. BERNARDA completed 7000 on [facility]. BERNARDA faxed orders, COVID test, and picker machine operator time to [facility]. BERNARDA notified RN, board of education secretary, patient, and left a message with patient's daughter Jose. All in agreement with discharge plan. Plan: d/c to [facility] under skilled level of care on a convalescent stay. [facility] will transport via cot. Tanya BLACK
--- NOTE | 2021-11-24 17:03 | NURSING ---
All documentation and medication administration performed by SN Rosemarie done under the supervision of this RN.
[2021-11-25 00:46] LABS: Bedside Glucose 131 mg/dL (74-106)
== END 2021-11-24 16:46 | disposition skilled nursing facility (03) | DRG 690 ==
LOC: ED 14:48 → PCU 14:54
PROVIDERS: Admitting Provider Student in an Organized Health Care Education/Training Program; Emergency Provider Emergency Medicine; PCP Family Medicine; Visit Provider Internal Medicine
DX: N39.0 Urinary tract infection, site not specified (principal); N17.9 Acute kidney failure, unspecified; E87.2 Acidosis; I69.354 Hemiplegia and hemiparesis following cerebral infarction affecting left non-dominant side; E11.22 Type 2 diabetes mellitus with diabetic chronic kidney disease; B96.4 Proteus (mirabilis) (morganii) as the cause of diseases classified elsewhere; E11.51 Type 2 diabetes mellitus with diabetic peripheral angiopathy without gangrene; E86.0 Dehydration; I25.10 Atherosclerotic heart disease of native coronary artery without angina pectoris; E78.5 Hyperlipidemia, unspecified; I12.9 Hypertensive chronic kidney disease with stage 1 through stage 4 chronic kidney disease, or unspecified chronic kidney disease; N18.2 Chronic kidney disease, stage 2 (mild); N40.0 Benign prostatic hyperplasia without lower urinary tract symptoms; I25.2 Old myocardial infarction; Z87.891 Personal history of nicotine dependence; R62.7 Adult failure to thrive; Z66 Do not resuscitate; Z79.02 Long term (current) use of antithrombotics/antiplatelets; Z79.82 Long term (current) use of aspirin; Z95.5 Presence of coronary angioplasty implant and graft
CPT/HCPCS: 36415; 71045; 71250; 73502; 80048; 80053; 81001; 82962; 83605; 84484; 85025; 87040; 87077; 87086; 87088; 87186; 87426; 93005; 97110; 97162; 97166; 97530; 97535; 99284; J7030; A4216